=== PATIENT | male | born 1965 | race Caucasian/White ===

== ENCOUNTER 2020-02-25 14:31 | Observation (INO) | payer OTHER ==
--- OUTSIDE RECORDS SUMMARY | 2020-02-25 14:35 | XMS REPORT | Continuity of Care Document ---
:1965 Author Organization [facility] t Address [address] [place] [address] Care Team Providers Name Role Phone UNKNOWN Primary Care Physician Unavailable Mansoor SCHUMACHER M Attending Clinician Fabian LOPEZ Attending Clinician Wero LOPEZ Attending Clinician Henrry LÓPEZ S Attending Clinician Doctor Unassigned, Name Attending Clinician Unavailable Darrius Bobby Attending Clinician Pa LOPEZ Attending Clinician Igor Monte Attending Clinician Nay BOYLE Attending Clinician Unavailable Wero LOPEZ Admitting Clinician Pa LOPEZ Admitting Clinician Nay BOYLE Admitting Clinician Unavailable Payers Payer Name Policy Type Policy Number Effective Date Expiration Date S ource Problems This patient has no known problems. Allergies, Adverse Reactions, Alerts Allergy Allergy Status Severity Reaction(s) Onset Inactive Treating Comm ents Source Name Type Date Date Clinician No Known DA Active [facility] 04-30 00:00: [address] Medications This patient has no known medications. Procedures This patient has no known procedures. Encounters Start End Encounter Admission Attending Care Care Encounter Source Date/Time Date/Time Type Type Clinicians Facility Department ID 2020-01-06 2020-01-06 Transition Braulio Max [id number] 00:00:00 00:00:00 of Care Jaymie Richardson [id number] David [id number] [id number] 2020-01-03 2020-01-05 Hospital Samson Peralta [facility] [id number] 12:56:00 16:50:00 Encounter Emerson Conteh [id number] [place] 4.2.7.2.686 [place] [id number] 2019-12-16 2019-12-[address] [facility] [id number] 15:24:00 17:43:00 Taylor Barahona [id number] [place] 4.2.7.2.686 [place] [id number] 2019-12-16 2019-12-16 Orders Doctor RADHA [id number] 00:00:00 00:00:00 Only Unassigned, REBECA 350.1.13.10 [place] [facility] [id number] [id number] 2019-05-22 2019-05-24 Emergency Shadiakanchan Luzrebekah Darrius [facility] 1.2. [id number] [id number] 15:03:46 10:20:00 Artem Winn [id number] [place] 4.2.7.2.686 [place] [id number] 2018-11-20 2018-11-[address] [facility] [id number] 14:55:10 16:23:02 Visit Eyal Barahona [id number] [place] 4.2.7.2.686 [place] [id number] formerly [facility] [address] Building 2016-04-16 2016-04-16 Outpatient [facility] MED [id number] 10:50:00 10:50:00 [facility] Results Test Description Test Time Test Comments Results Result Comments Source CBC W/AUTO DIFF 2018-12-26 09:16:00 Test Item Value Reference Range Interpretation Comme nts WHITE BLOOD CELL (test code = WBC) 10.7 K/MM3 3.8-9.8 H RED BLOOD CELL (test code = RBC) 5.79 M/MM3 3.95-5.67 H HEMOGLOBIN (test code = HGB) 11.0 G/DL 12.4-16.7 L HEMATOCRIT (test code = HCT) 39.1 % 35.9-49.5 N MEAN CELL VOLUME (test code = MCV) 68 fL 81.7-96.1 L MEAN CELL HGB (test code = MCH) 19.0 pg 27.6-33.2 L MEAN CELL HGB CONCETRATION (test code = MCHC) 28.1 % 32.9-35. 5 L RED CELL DISTRIBUTION WIDTH (test code = RDW) 22.3 % 12.1-15. 2 H PLATELET COUNT (test code = PLT) 473 K/MM3 129-368 H MEAN PLATELET VOLUME (test code = MPV) 9.9 fl 7.4-10.4 N NEUTROPHIL % (test code = NT%) 60.9 % 43-75 N IMMATURE GRANULOCYTE % (test code = IG%) 0.7 % 0.0-2.0 N LYMPHOCYTE % (test code = LY%) 19.7 % 14-44 N MONOCYTE % (test code = MO%) 13.9 % 4-13 H EOSINOPHIL % (test code = EO%) 3.8 % 0-6 N BASOPHIL % (test code = BA%) 1.0 % 0-2 N NUCLEATED RBC % (test code = NRBC%) 0.0 % 0-1.0 N NEUTROPHIL # (test code = NT#) 6.53 K/mm3 2.0-7.6 N IMMATURE GRANULOCYTE # (test code = IG#) 0.07 x10 3/uL 0-0.03 H LYMPHOCYTE # (test code = LY#) 2.11 K/mm3 1.0-3.8 N MONOCYTE # (test code = MO#) 1.49 K/mm3 0.1-0.8 H EOSINOPHIL # (test code = EO#) 0.41 K/mm3 0.0-0.2 H BASOPHIL # (test code = BA#) 0.11 K/mm3 0.0-0.2 N NUCLEATED RBC # (test code = NRBC#) 0.00 K/mm3 0.0-0.1 N DIFFERENTIAL [id number] 09:16:00 Test Item Value Reference Range Interpretation Comments RBC MORPHOLOGY REQUIRED (test code = ABNORMAL RBCM) POIKILOCYTOSIS (test code = POIK) MODERATE NONE ANISOCYTOSIS (test code = ANISO) MANY NONE MICROCYTOSIS (test code = MICR) MODERATE NONE ELLIPTOCYTES (test code = ELL) FEW NONE OVALOCYTES (test code = OVAL) MODERATE NONE PLATELET ESTIMATE (test code = ADEQUATE ADEQUATE PLTEST) PLATELET MORPHOLOGY (test code = NORMAL NORMAL PLTMORPH) GLUCOSE BEDSIDE [id number] 08:39:00 Test Item Value Reference Range Interpretation Comments GLUCOSE BEDSIDE TESTING (test code 195 MG/DL 60-99 H = GLUBED) BASIC METABOLIC [id number] 07:47:00 Test Item Value Reference Range Interpretation Comments SODIUM (test code = 136 MMOL/L 137-145 L NA) POTASSIUM (test code = 4.6 MMOL/L 3.5-5.1 N K) CHLORIDE (test code = 100 MMOL/L 98-107 N CL) CARBON DIOXIDE (test 27 MMOL/L 22-30 N code = CO2) ANION GAP (test code = 14 MMOL/L 14-24 N GAP) GLUCOSE (test code = 259 MG/DL 74-106 H GLU) BLOOD UREA NITROGEN 25 MG/DL 9-20 H (test code = BUN) GLOMERULAR FILTRATION 29 Report ing units: RATE (test code = GFR) ml/mi n/1.73 m2 (Modified MDRD Formula)Referen ce Range: > or = 6 0 ml/min/1.73 m2 CREATININE (test code 2.40 MG/DL 0.66-1.25 H = CREAT) CALCIUM (test code = 9.2 MG/DL 8.4-10.2 N CA) LIPID PROFILE (CORONARY RISK)2018-12-26 07:47:00 Test Item Value Reference Range Interpretation Comments TRIGLYCERIDES (test 191 MG/DL TRIGLYCE RIDES code = TRIG) REFERENCE RANGE:Normal: < 150 mg/dLBorderline High: 150-199 mg/dLHi gh: 200-499 mg/dLVe ry High: >=500 mg/ dL CHOLESTEROL (test code 150 MG/DL <200 = CHOL) HDL CHOLESTEROL (test 48 MG/DL 40-59 N code = HDL) LIPOPROTEIN LDL (test 80 MG/DL 0-99 N code = LDL) OPTIMAL........ .<100 mg/dLNEAR OPTIMAL/ABOVE OPTIMAL........ .100-12 9 mg/dL BORDERLINE HIGH.........13 0-159 mg/dL HIGH.........16 0-189 mg/dL VERY HIGH...... ...>/= 190 mg/dL [id number] 07:47:00 Test Item Value Reference Range Interpretation Comments MAGNESIUM (test code = MAG) 2.0 MG/DL 1.6-2.3 N PROTHROMBIN [id number] 07:41:00 Test Item Value Reference Range Interpretation Comments PROTHROMBIN TIME 10.2 SECONDS 9.6-11.6 N PATIENT (test code = PTP) INTERNATIONAL NORMAL 1.0 0.8-1.1 N The INR is to be RATIO (test code = used only for INR) monitoring oral anticoagulantth erap y. INDICATION I NR VALUE ---- ---- ---- -------1. Prophylaxis, de ep venous thrombos is, including hig h risk surgery. 2.0 - 3.0 2. Prophylaxis, de ep venous thrombos is, hip surgery, treatment for d eep venous thrombosis or pulmonary prevention of systemic emboli sm in patients wit h valvular heart disease, atrial fibrillation, tissue heart va lve, or acute myocar dial infarction. 2.0 - 3 .0 3. Mechanical prosthesis hear t valves, recurrent syste jordana embolism. 3.0 - 4.5 Comments to Blood Typer: WILL BRING TO LABPTT [id number] 07:41:00 Test Item Value Reference Range Interpretation Comments PTT ACTIVATED (test code = APTT) 26.8 SECONDS 22.0-33.0 N Comments to Blood Typer: WILL BRING TO LABBASIC METABOLIC [id number] 07:31:00 Test Item Value Reference Range Interpretation Comments SODIUM (test code = 136 MMOL/L 137-145 L NA) POTASSIUM (test code = 4.6 MMOL/L 3.5-5.1 N K) CHLORIDE (test code = 100 MMOL/L 98-107 N CL) CARBON DIOXIDE (test 27 MMOL/L 22-30 N code = CO2) ANION GAP (test code = 14 MMOL/L 14-24 N GAP) GLUCOSE (test code = 259 MG/DL 74-106 H GLU) BLOOD UREA NITROGEN 25 MG/DL 9-20 H (test code = BUN) GLOMERULAR FILTRATION 29 Report ing units: RATE (test code = GFR) ml/mi n/1.73 m2 (Modified MDRD Formula)Referen ce Range: > or = 6 0 ml/min/1.73 m2 CREATININE (test code 2.40 MG/DL 0.66-1.25 H = CREAT) CALCIUM (test code = 9.2 MG/DL 8.4-10.2 N CA) LIPID PROFILE (CORONARY RISK)2018-12-26 07:31:00 Test Item Value Reference Range Interpretation Comments TRIGLYCERIDES (test 191 MG/DL TRIGLYCE RIDES code = TRIG) REFERENCE RANGE:Normal: < 150 mg/dLBorderline High: 150-199 mg/dLHi gh: 200-499 mg/dLVe ry High: >=500 mg/ dL CHOLESTEROL (test code 150 MG/DL <200 = CHOL) HDL CHOLESTEROL (test 48 MG/DL 40-59 N code = HDL) LIPOPROTEIN LDL (test MG/DL 0-99 code = LDL) [id number] 07:31:00 Test Item Value Reference Range Interpretation Comments MAGNESIUM (test code = MAG) 2.0 MG/DL 1.6-2.3 N BASIC METABOLIC [id number] 07:29:00 Test Item Value Reference Range Interpretation Comments SODIUM (test code = NA) 136 MMOL/L 137-145 L POTASSIUM (test code = K) 4.6 MMOL/L 3.5-5.1 N CHLORIDE (test code = CL) 100 MMOL/L 98-107 N CARBON DIOXIDE (test code = CO2) MMOL/L 22-30 GLUCOSE (test code = GLU) MG/DL 74-106 BLOOD UREA NITROGEN (test code = MG/DL 9-20 BUN) GLOMERULAR FILTRATION RATE (test code = GFR) CREATININE (test code = CREAT) MG/DL 0.66-1.25 CALCIUM (test code = CA) MG/DL 8.7-9.7 LIPID PROFILE (CORONARY RISK)2018-12-26 07:29:00 Test Item Value Reference Range Interpretation Comments TRIGLYCERIDES (test code = TRIG) MG/DL CHOLESTEROL (test code = CHOL) 150 MG/DL <200 HDL CHOLESTEROL (test code = HDL) MG/DL 40-59 LIPOPROTEIN LDL (test code = LDL) MG/DL 0-99 [id number] 07:29:00 Test Item Value Reference Range Interpretation Comments MAGNESIUM (test code = MAG) MG/DL 1.6-2.3 BASIC METABOLIC [id number] 07:27:00 Test Item Value Reference Range Interpretation Comments SODIUM (test code = NA) 136 MMOL/L 137-145 L POTASSIUM (test code = K) 4.6 MMOL/L 3.5-5.1 N CHLORIDE (test code = CL) 100 MMOL/L 98-107 N CARBON DIOXIDE (test code = CO2) MMOL/L 22-30 GLUCOSE (test code = GLU) MG/DL 74-106 BLOOD UREA NITROGEN (test code = MG/DL 9-20 BUN) GLOMERULAR FILTRATION RATE (test code = GFR) CREATININE (test code = CREAT) MG/DL 0.66-1.25 CALCIUM (test code = CA) MG/DL 8.7-9.7 LIPID PROFILE (CORONARY RISK)2018-12-26 07:27:00 Test Item Value Reference Range Interpretation Comments TRIGLYCERIDES (test code = TRIG) MG/DL CHOLESTEROL (test code = CHOL) MG/DL <200 HDL CHOLESTEROL (test code = HDL) MG/DL 40-59 LIPOPROTEIN LDL (test code = LDL) MG/DL 0-99 [id number] 07:27:00 Test Item Value Reference Range Interpretation Comments MAGNESIUM (test code = MAG) MG/DL 1.6-2.3 CBC W/AUTO [id number] 07:24:00 Test Item Value Reference Range Interpretation Comments WHITE BLOOD CELL (test code = 10.7 K/MM3 3.8-9.8 H WBC) RED BLOOD CELL (test code = 5.79 M/MM3 3.95-5.67 H RBC) HEMOGLOBIN (test code = HGB) 11.0 G/DL 12.4-16.7 L HEMATOCRIT (test code = HCT) 39.1 % 35.9-49.5 N MEAN CELL VOLUME (test code = 68 fL 81.7-96.1 L MCV) MEAN CELL HGB (test code = MCH) 19.0 pg 27.6-33.2 L MEAN CELL HGB CONCETRATION 28.1 % 32.9-35.5 L (test code = MCHC) RED CELL DISTRIBUTION WIDTH 22.3 % 12.1-15.2 H (test code = RDW) PLATELET COUNT (test code = 473 K/MM3 129-368 H PLT) MEAN PLATELET VOLUME (test code 9.9 fl 7.4-10.4 N = MPV) NEUTROPHIL % (test code = NT%) 60.9 % 43-75 N IMMATURE GRANULOCYTE % (test 0.7 % 0.0-2.0 N code = IG%) LYMPHOCYTE % (test code = LY%) 19.7 % 14-44 N MONOCYTE % (test code = MO%) 13.9 % 4-13 H EOSINOPHIL % (test code = EO%) 3.8 % 0-6 N BASOPHIL % (test code = BA%) 1.0 % 0-2 N NUCLEATED RBC % (test code = 0.0 % 0-1.0 N NRBC%) NEUTROPHIL # (test code = NT#) 6.53 K/mm3 2.0-7.6 N IMMATURE GRANULOCYTE # (test 0.07 x10 3/uL 0-0.03 H code = IG#) LYMPHOCYTE # (test code = LY#) 2.11 K/mm3 1.0-3.8 N MONOCYTE # (test code = MO#) 1.49 K/mm3 0.1-0.8 H EOSINOPHIL # (test code = EO#) 0.41 K/mm3 0.0-0.2 H BASOPHIL # (test code = BA#) 0.11 K/mm3 0.0-0.2 N NUCLEATED RBC # (test code = 0.00 K/mm3 0.0-0.1 N NRBC#) DIFFERENTIAL [id number] 07:24:00 Test Item Value Reference Range Interpretation Comments RBC MORPHOLOGY REQUIRED (test code = RBCM) PLATELET ESTIMATE (test code = PLTEST) ADEQUATE PLATELET MORPHOLOGY (test code = NORMAL PLTMORPH) CBC W/AUTO [id number] 07:24:00 Test Item Value Reference Range Interpretation Comments WHITE BLOOD CELL (test code = 10.7 K/MM3 3.8-9.8 H WBC) RED BLOOD CELL (test code = 5.79 M/MM3 3.95-5.67 H RBC) HEMOGLOBIN (test code = HGB) 11.0 G/DL 12.4-16.7 L HEMATOCRIT (test code = HCT) 39.1 % 35.9-49.5 N MEAN CELL VOLUME (test code = 68 fL 81.7-96.1 L MCV) MEAN CELL HGB (test code = MCH) 19.0 pg 27.6-33.2 L MEAN CELL HGB CONCETRATION 28.1 % 32.9-35.5 L (test code = MCHC) RED CELL DISTRIBUTION WIDTH 22.3 % 12.1-15.2 H (test code = RDW) PLATELET COUNT (test code = 473 K/MM3 129-368 H PLT) MEAN PLATELET VOLUME (test code 9.9 fl 7.4-10.4 N = MPV) NEUTROPHIL % (test code = NT%) 60.9 % 43-75 N IMMATURE GRANULOCYTE % (test 0.7 % 0.0-2.0 N code = IG%) LYMPHOCYTE % (test code = LY%) 19.7 % 14-44 N MONOCYTE % (test code = MO%) 13.9 % 4-13 H EOSINOPHIL % (test code = EO%) 3.8 % 0-6 N BASOPHIL % (test code = BA%) 1.0 % 0-2 N NUCLEATED RBC % (test code = 0.0 % 0-1.0 N NRBC%) NEUTROPHIL # (test code = NT#) 6.53 K/mm3 2.0-7.6 N IMMATURE GRANULOCYTE # (test 0.07 x10 3/uL 0-0.03 H code = IG#) LYMPHOCYTE # (test code = LY#) 2.11 K/mm3 1.0-3.8 N MONOCYTE # (test code = MO#) 1.49 K/mm3 0.1-0.8 H EOSINOPHIL # (test code = EO#) 0.41 K/mm3 0.0-0.2 H BASOPHIL # (test code = BA#) 0.11 K/mm3 0.0-0.2 N NUCLEATED RBC # (test code = 0.00 K/mm3 0.0-0.1 N NRBC#) DIFFERENTIAL [id number] 07:24:00 Test Item Value Reference Range Interpretation Comments RBC MORPHOLOGY REQUIRED (test code = RBCM) PLATELET ESTIMATE (test code = PLTEST) ADEQUATE PLATELET MORPHOLOGY (test code = NORMAL PLTMORPH) POC Glucose, [id number] 13:51:00 Test Item Value Reference Range Interpretation Comments POC Glucose (test 186 mg/dL 70-115 H If you con sales utility representative your code = POCGLUC) patient crit ically ill, the Sam Accu- Chek InformII meters hould not be used for Glu cose determinations. Draw a venous Glucose and send to the Main Lab for Analysis.
--- OUTSIDE RECORDS SUMMARY | 2020-02-25 14:35 | XMS REPORT | Summary of Care ---
:1965 Author Organization [facility] - [facility] Address [address] [place] [id number] Care Team Providers Name Role Phone Brandt Primary Care Provider Encounter Details Date Type Department Care Team Description 12/16/2019 Orders Only [facility] Doctor Unassigned, [address] [facility] [place] [address] [address] [place] [address] Allergies Active Allergy Reactions Severity Noted Date Comments Morphine Other - See comments 05/06/2019 "I've b een told it makes me violent" documented as of this encounter (statuses as of 12/16/2019) Medications Medication Sig Dispensed Refills Start Date End Date Status rosuvastatin (CRESTOR) Take 20 mg by 0 Active 20 mg tablet mouth at bedtime. clopidogrel (PLAVIX) 75 Take 75 mg by 0 Active mg tablet mouth daily. Insulin [place], Use as directed, 360 Each 1 08/09/2016 Active Disposable, (OLIVER PEN QID, Dx;E11.9 NEEDLE) 32 gauge x 5/32" NdleIndications: Type 1 diabetes mellitus with complication albuterol 90 Inhale 2 Puffs 8.5 g 0 10/05/2017 A ctive mcg/actuation inhaler every 4 (four) hours as needed for Wheezing or Shortness of Breath. ondansetron 4 mg Take 1 tablet by 20 tablet 0 04/01/2018 Active disintegrating tablet mouth every 8 (eight) hours as needed for Nausea and Vomiting (N/V). buPROPion SR 150 mg SR TAKE 1 TABLET BY 5 10/17/2018 Active tablet MOUTH ONCE DAILY HUMALOG U-100 INSULIN USE DIRECTED 5 09/25/2018 Active 100 unit/mL solution PER SLIDING SCALE; MAX DAILY DOSE 60 UNITS metoclopramide HCl 10 Take 1 tablet by 20 tablet 0 05/07/2019 Active mg tabletIndications: mouth 2 (two) Syncope, unspecified times daily as syncope type, needed for Nausea Hypokalemia, Vomiting, and Vomiting intractability of (N/V). vomiting not specified, presence of nausea not specified, unspecified vomiting type, Essential hypertension Insulin Detemir inject 30 Units 3 mL 2 05/24/2019 Active (LEVEMIR FLEXTOUCH under the skin 2 U-100 INSULN) 100 (two) times unit/mL (3 mL) daily. injectionIndications: Type 1 diabetes mellitus with complication documented as of this encounter (statuses as of 12/16/2019) Active Problems Problem Noted Date Nausea & vomiting 05/23/2019 Chest pain 05/22/2019 Syncope and collapse 05/06/2019 Coronary artery disease involving [place] coronary anna ry of [place] heart 05/06/2019 without angina pectoris Essential hypertension 05/06/2019 Myocardial infarction type 2 05/06/2019 Stage 4 chronic kidney disease 05/06/2019 Volume overload 02/17/2017 Type 1 diabetes mellitus with complication 07/30/2016 Dyslipidemia 07/30/2016 Obesity (BMI 30-39.9) 04/15/2016 documented as of this encounter (statuses as of 12/16/2019) Social History Tobacco Use Types Packs/Day Years Used Date Never Smoker Smokeless Tobacco: Never Used Alcohol Use Drinks/Week oz/Week Comments Yes twice weekly Sex Assigned at Date Recorded Not on file documented as of this encounter Last Filed Vital Signs Not on filedocumented in this encounter Plan of Treatment Health Maintenance Due Date Last Done Comments EYE EXAM 1976 Depression Screening 1978 DTaP,Tdap,and Td Vaccines (1 1985 - Tdap) COLON CANCER SCREENING 2016 ANNUAL FIT/FOBT COLON CANCER SCREENING FIT 2016 DNA EVERY 3 YEARS COLON CANCER SCREENING 2016 SIGMOIDOSCOPY EVERY 5 YEARS COLONOSCOPY 2016 Colorectal Cancer Screening 2016 Zoster Recombinant Vaccine 2016 (SHINGRIX) (1 of 2) HgA1C 11/04/2019 05/06/2019, 11/20/2018, 04/01/2018, Additional history exists FOOT EXAM 11/21/2019 11/20/2018, 11/20/2018, 11/12/2016, Additional history exists LDL-C 11/21/2019 11/20/2018, 11/12/2016 URINE MICROALBUMIN 11/21/2019 11/20/2018, 11/12/2016 INFLUENZA VACCINE (#1) 2019 CREATININE (SERUM) 05/24/2020 05/24/2019, 05/22/2019, 05/07/2019, Additional history exists PNEUMOCOCCAL 0-64 YEARS Aged Out No longe r eligible COMBINED SERIES based on patient 's age to complete this topic documented as of this encounter Procedures Procedure Name Priority Date/Time Associated Diagnosis Comme nts CONSENT/REFUSAL FOR Routine 12/16/2019 3:18 PM CDT DIAGNOSIS AND TREATMENT documented in this encounter Results Not on filedocumented in this encounter Insurance Payer Benefit Plan / Group Subscriber ID Effective Dates Phone Address Type AETNA AETNA O [id number] 2011-Present [place] documented as of this encounter
--- OUTSIDE RECORDS SUMMARY | 2020-02-25 14:36 | XMS REPORT | Summary of Care ---
:1965 Author Organization [facility] Address [address] [place] [address] Care Team Providers Name Role Phone Brandt Primary Care Provider Reason for Visit Reason Comments Vomiting Auth/Cert Status Reason Specialty Diagnoses / Referred By Referred To Procedures Contact Contact Emergency Medicine Diagnoses VOMITING [facility] [address] [place] [address] Fax: Encounter Details Date Type Department Care Team Description 12/16/2019 Emergency ADC-Emergency Taylor Sales, MARIBEL Vomiting, intractability of vomiting not specified, presence of nausea not specified, unspecified vomiting type (Primary Dx); Department [address] [place] [address] DR Cardoso specified diabetes mellitus with o ther specified complication, unspecified whether local intermodal truck driver insulin use [address] [place], [place] [address] [address] [phone] [place], [place] [id number] [phone] Allergies Active Allergy Reactions Severity Noted Date Comments Morphine Other - See comments 05/06/2019 "I've b een told it makes me violent" documented as of this encounter (statuses as of 12/16/2019) Medications Medication Sig Dispensed Refills Start Date End Date Status rosuvastatin Take 20 mg by 0 Act cleo (CRESTOR) 20 mg mouth at tablet bedtime. clopidogrel (PLAVIX) Take 75 mg by 0 Active 75 mg tablet mouth daily. Insulin Seymour, Use as 360 Each 1 08/09/2016 Ac tive Disposable, (OLIVER directed, QID, PEN NEEDLE) 32 gauge Dx;E11.9 x 5/32" NdleIndications: Type 1 diabetes mellitus with complication albuterol 90 Inhale 2 Puffs 8.5 g 0 10/05/2017 A ctive mcg/actuation every 4 (four) inhaler hours as needed for Wheezing or Shortness of Breath. ondansetron 4 mg Take 1 tablet 20 tablet 0 04/01/2018 Active disintegrating by mouth every tablet 8 (eight) hours as needed for Nausea and Vomiting (N/V). buPROPion SR 150 mg TAKE 1 TABLET 5 10/17/2018 Active SR tablet BY MOUTH ONCE DAILY HUMALOG U-100 USE DIRECTED 5 09/25/2018 Active INSULIN 100 unit/mL PER SLIDING solution SCALE; MAX DAILY DOSE 60 UNITS Insulin Detemir inject 30 Units 3 mL 2 05/24/2019 Active (LEVEMIR FLEXTOUCH under the skin U-100 INSULN) 100 2 (two) times unit/mL (3 mL) daily. injectionIndications : Type 1 diabetes mellitus with complication metoclopramide HCl Take 1 tablet 20 tablet 0 12/16/2019 Active 10 mg by mouth every tabletIndications: 6 (six) hours. Vomiting, intractability of vomiting not specified, presence of nausea not specified, unspecified vomiting type, Other specified diabetes mellitus with other specified complication, unspecified whether local intermodal truck driver insulin use metoclopramide HCl Take 1 tablet 20 tablet 0 05/07/2019 Discontinued 10 mg by mouth 2 0 tabletIndications: (two) times Syncope, unspecified daily as needed syncope type, for Nausea and Hypokalemia, Vomiting (N/V). 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 documented as of this encounter Last Filed Vital Signs Vital Sign Reading Time Taken Comments Blood Pressure 178/103 12/16/2019 5:33 PM CDT Pulse 87 12/16/2019 5:33 PM CDT Temperature 37.1 C (98.8 F) 12/16/2019 3:27 PM CDT Respiratory Rate 16 12/16/2019 5:33 PM CDT Oxygen Saturation 99% 12/16/2019 5:33 PM CDT Inhaled Oxygen Concentration - - Weight 83.9 kg (185 lb) 12/16/2019 3:27 PM CDT Height 172.7 cm (5' 8") 12/16/2019 3:27 PM CDT Body Mass Index 28.13 12/16/2019 3:27 PM CDT documented in this encounter Discharge Instructions InstructionsTaylor Sales, PAC - 12/16/2019DIAGNOSIS 1. Vomiting NO LIFE-THREATENING FINDINGS ON TODAY'S EXAM. PROCEDURES IN THE ER TODAY: none MEDICATIONS ADMINISTERED IN THE ER TODAY: Zofran 4mg IV Reglan 10mg IV Benadryl 12.5mg IV IV fluids YOUR PRESCRIPTIONS AND [id number] MEDICATION RECOMMENDATIONS: Reglan 10mg tablets Benadryl 25mg tablets SPECIAL CARE INSTRUCTIONS: Take medicine as needed for nausea as prescribed and Bendaryl as needed if you feel anxious after taking the nausea medicine. Drink plenty of clear liquids. Continue treamtent of DM as recommended by your PCP. Return to the ED if vomiting worsens and you are unable to control with medicine or if you develop new symptoms such as severe abdominal pain or fever. FOLLOW-UP RECOMMENDATIONS: RECOMMEND FOLLOW-UP WITH A PRIMARY CARE PROVIDER OR SPECIALIST IN 2-5 DAYS, ESPECIALLY IF NO IMPROVEMENT IN SYMPTOMS. TO FOLLOW-UP WITHIN THE [facility], TRY THESE OPTIONS (CLINIC APPOINTMENTS AVAILABLE ON COTP-YK-[id number] BASIS): 1. SCHEDULE AN APPOINTMENT ONLINE AT WWW.[facility] 2. OR CALL THE [facility]ESS CENTER AT OR 3. OR CALL YOUR [facility] PHYSICIAN'S OFFICE DIRECTLY IF YOU ARE ALREADY AN ESTABLISHED [facility] PATIENT. OR, YOU MAY FOLLOW-UP WITH A PROVIDER OF YOUR CHOICE, SUCH : 1. A PHYSICIAN OF YOUR CHOICE 2. [facility], . LOCATIONS IN [facility] 3. [facility], [address], [place]; [phone] RETURN TO ER FOR WORSENING OF SYMPTOMS. AttachmentsThe following attachments cannot be sent through Care Everywhere. Vomiting (Adult) (Greenlandic)documented in this encounter ED Notes Angie Worley RN - 12/16/2019 3:25 PM CDTNausea/vomiting x2 days. States he went to [facility] urgent care and they advised him to come to the ED "in case I needed fluids". States he is diabetic and he consistently reads "HI" on his monitors. He has not been taking his HTN meds due to vomiting. BGL:[id number] documented in this encounter Miscellaneous Notes ED Nurse Note - Nadiya Toribio RN - 12/16/2019 5:42 PM CDTPt discharged with diagnosis of vomiting. Printed and verbal instructions reviewed with and given topatient. Prescriptions given x1. Pt verbalized understanding of teaching and medications. Denies questions or concerns at this time. Pt ambulatory at discharge, appears in no apparent distress. No ataxia noted. D Nurse Note - Nadiya Toribio RN - 12/16/2019 5:33 PM CDTERP notified of patient's BP. Advised patient to take daily BP medications on arrival home. D Nurse Note - Nadiya Toribio RN - 12/16/2019 3:46 PM CDTAttempted collection of UA, Pt unable to provide specimen at this time. Will attempt again shortly. Urinal left at bedside. documented in this encounter Plan of Treatment Health [...] Name Priority Date/Time Associated Diagnosis Comme nts POCT GLUCOSE Routine 12/16/2019 4:41 Results for this (AUTOMATED) PM CDT procedure are i n the results section. URINALYSIS STAT 12/16/2019 4:16 Vomiting, Results for this PM CDT intractability of procedure are in vomiting not the results specified, presence of secti on. nausea not specified, unspecified vomiting type Other specified diabetes mellitus with other specified complication, unspecified whether [facility] use COVID-19 (ID NOW STAT 12/16/2019 4:05 Vomiting, Results for this RAPID TESTING) PM CDT intractability of procedur e are in vomiting not the results specified, presence of secti on. nausea not specified, unspecified vomiting type Other specified diabetes mellitus with other specified complication, unspecified whether [facility] insulin use CBC WITH DIFF STAT 12/16/2019 3:41 Vomiting, Results fo r this PM CDT intractability of procedure are in vomiting not the results specified, presence of secti on. nausea not specified, unspecified vomiting type Other specified diabetes mellitus with other specified complication, unspecified whether local intermodal truck driver insulin use COMP. METABOLIC STAT 12/16/2019 3:41 Vomiting, Results for this PANEL (03772) PM CDT intractability of procedure are in vomiting not the results specified, presence of secti on. nausea not specified, unspecified vomiting type Other specified diabetes mellitus with other specified complication, unspecified whether [facility] insulin use LIPASE STAT 12/16/2019 3:41 Vomiting, Results for this PM CDT intractability of procedure are in vomiting not the results specified, presence of secti on. nausea not specified, unspecified vomiting type Other specified diabetes mellitus with other specified complication, unspecified whether [facility] insulin use POCT GLUCOSE Routine 12/16/2019 3:29 Results for this (AUTOMATED) PM CDT procedure are i n the results section. NOTICE OF PRIVACY Routine 12/16/2019 3:18 PRACTICES PM CDT documented in this encounter Results POCT GLUCOSE (AUTOMATED) (12/16/2019 4:41 PM CDT) Pathologist Sig nature POCT GLU 358 (H) 70 - 110 mg/dL [facility] Specimen Blood Performing Organization Address City/State/Zipcode Phone Number [facility] CLIA: [id number] [place], [place] [id number] LABORATORY [address] URINALYSIS (12/16/2019 4:16 PM CDT) Pathologist Sig nature APPEARANCE Clear Clear [facility] COLOR Straw (A) Yellow [facility] PH 6.0 4.8 - 8.0 [facility] SP GRAVITY 1.005 1.003 - 1.030 [facility] GLU U QUAL 500 mg/dL (A) Normal [facility] BLOOD 1+ (A) Negative [facility] KETONES Negative Negative [facility] PROTEIN 100 mg/dL (A) Negative [facility] UROBILIN Normal Normal [facility] BILIRUBIN Negative Negative [facility] NITRITE Negative Negative [facility] LEUK ARNIE Negative Negative [facility] RBC/HPF 2 0 - 3 HPF [facility] WBC/HPF <1 0 - 5 HPF [facility] BACTERIA Few (A) Negative [facility] MUCOUS Slight (A) Negative LPF [facility] SQ EPITH <1 HPF [facility] HYAL CAST 3 (H) <=2 LPF [facility] Specimen Urine - URINE, CLEAN CATCH Performing Organization Address [facility] Phone Number [facility] CLIA: [id number] [place] [address] [address] [facility] [address] COVID-19 (ID NOW RAPID TESTING) (12/16/2019 4:05 PM CDT) SARS-CoV-2 Rapid ID Not Detected Not Detected [facility] Specimen Swab - NASOPHARYNGEAL SWAB Narrative Performed At [facility] NOW COVID-19 Assay is an isothermal nucleic [facility] acid amplification test intended for the qualitative detection of nucleic acid from SARS-CoV-2 viral RNA in nasopharyngeal ([employer]) specimens. It is used under Emergency Use Authorization (EUA) by FDA. The limit of detection (LOD) of the assay is 125 Genome Equivalents/mL. A positive result is indicative of the presence of SARS-CoV-2 RNA. Clinical correlation with patient history and other diagnostic information is necessary to determine patient infection status. A negative (Not Detected) result does not preclude SARS-CoV-2 infection. In patients with clinical symptoms and other tests that are consistent with SARS-CoV-2 infection, negative results should be treated as presumptive negative and a new specimen should be tested with alternative PCR molecular test. Invalid: Please collect a new specimen for repeat patient testing if clinically indicated. Performing Organization Address City/[facility]/Zipcode Phone Number [facility] CLIA: [id number] [place] [address] [place] [address] LIPASE (12/16/2019 3:41 PM CDT) Pathologist Sig nature LIPASE 346 (H) 0 - 220 U/L [facility] Specimen Blood - VENOUS Performing Organization Address [facility]/Zipcode Phone Number [facility] CLIA: [id number] [place] [address] LABORATORY [address] [facility] COMP. METABOLIC PANEL (75816) (12/16/2019 3:41 PM CDT) NA 131 (L) 135 - 145 [facility] mmol/L [facility] K 4.5 3.5 - 5.0 [facility] mmol/L [facility] CL 96 (L) 98 - 108 mmol/L [facility] CO2 TOTAL 23 23 - 31 mmol/L [facility] AGAP 12 2 - 16 [facility] BUN 41 (H) 7 - 23 mg/dL [facility] GLUCOSE 365 (H) 70 - 110 mg/dL [facility] CREATININE 2.54 (H) 0.60 - 1.25 [facility] mg/dL [facility] TOTAL BILI 0.5 0.1 - 1.1 mg/dL [facility] CALCIUM 8.9 8.6 - 10.6 [facility] mg/dL [facility] T PROTEIN 7.2 6.3 - 8.2 g/dL [facility] ALBUMIN 3.8 3.5 - 5.0 g/dL [facility] ALK PHOS 138 (H) 34 - 122 U/L [facility] ALTv 16 5 - 50 U/L [facility] AST(SGOT) 26 13 - 40 U/L [facility] eGFR Calculation 26.7 mL/min/1.73m2 [facility] [place] eGFR Calculation 32.3 mL/min/1.73m2 [facility] ([facility]) [facility] Specimen Blood - VENOUS Narrative Performed At Association of Glomerular Filtration Rate (GFR) [facility] and Staging of Kidney Disease* + + +- + | GFR (mL/min/1.73 m2) | With Kidney Damage | Without Kidney Damage + + +- + | >90 | Stage one | Normal + + +- + | 60-89 | Stage two | Decreased GFR + + +- + | 30-59 | Stage three | Stage three + + +- + | 15-29 | Stage four | Stage four + + +- + | <15 (or dialysis) | Stage five | Stage five + + +- + *Each stage assumes the associated GFR level has been in effect for at least three months. Stages 1 to 5, with or without kidney disease, indicate chronic kidney disease. Notes: Determination of stages one and two (with eGFR >59mL/min/1.73 m2) requires estimation of kidney damage for at least three months as defined by structural or functional abnormalities of the kidney, manifested by either: Pathological abnormalities or Markers of kidney damage (including abnormalities in the composition of the blood or urine or abnormalities in imaging tests). Performing Organization Address City/State/Zipcode Phone Number [facility] CLIA: [id number] [place] [address] CBC WITH DIFF (12/16/2019 3:41 PM CDT) WBC 8.36 4.20 - 10.70 [facility] 10*3/L [facility] RBC 6.26 (H) 4.26 - 5.52 [facility] 10*6/L [facility] HGB 12.3 12.2 - 16.4 [facility] g/dL [facility] HCT 42.2 38.4 - 49.3 % [facility] MCV 67.4 (L) 81.7 - 95.6 [facility] LABORATORY MCH 19.6 (L) 26.1 - 32.7 [facility] pg [facility] MCHC 29.1 (L) 31.2 - 35.0 [facility] g/dL [facility] RDW-SD 42.7 38.5 - 51.6 [facility] LABORATORY RDW-CV 19.3 (H) 12.1 - 15.4 % [facility] PLT 278 150 - 328 [facility] 10*3/L [facility] MPV Comment: Not [facility] LABORATORY IPF % 8.4Comment: Platelet 1.2 - 10.7 % [facility] count measured by HOSPITAL fluorescence method. LABORATORY NRBC/100 WBC 0.0 0.0 - 10.0 [facility] /100 WBCs [facility] NRBC x10^3 <0.01 10*3/L [facility] GRAN MAT (NEUT) % 76.4 % [facility] IMM GRAN % 0.40 % [facility] LYMPH % 11.4 % [facility] MONO % 9.7 % [facility] EOS % 1.4 % [facility] BASO % 0.7 % [facility] GRAN MAT 6.39 1.99 - 6.95 [facility] x10^3(ANC) 10*3/uL HOSPITAL LABORATORY IMM GRAN x10^3 0.03 0.00 - 0.06 [facility] 10*3/uL HOSPITAL LABORATORY LYMPH x10^3 0.95 (L) 1.09 - 3.23 [facility] 10*3/uL HOSPITAL LABORATORY MONO x10^3 0.81 0.36 - 1.02 [facility] 10*3/uL HOSPITAL LABORATORY EOS x10^3 0.12 0.06 - 0.53 [facility] 10*3/uL [facility] BASO x10^3 0.06 0.01 - 0.09 [facility] 103/uL [facility] Specimen Blood - VENOUS Performing Organization Address City/[facility]/Zipcode Phone Number [facility] CLIA: [id number] [place], [place] [id number] LABORATORY [address] POCT GLUCOSE (AUTOMATED) (12/16/2019 3:29 PM CDT) [facility] POCT GLU 354 (H) 70 - 110 mg/dL [facility] Specimen Blood Performing Organization Address City/[facility] Phone Number [facility] CLIA: [id number] [place], [place] [id number] LABORATORY [address] documented in this encounter Visit Diagnoses Diagnosis Vomiting, intractability of vomiting not specified, presence of nausea not specified, unspecified vomiting type - Primary Other specified diabetes mellitus with o ther specified complication, unspecified whether [facility] insulin use documented in this encounter Administered Medications Medication Order MAR Action Action Date Dose Rate Site cloNIDine (CATAPRES) tablet 0.1 Given 12/16/2019 5:19 PM CDT 0. 1 mg mg 0.1 mg, Oral, ONCE, 1 dose, Zee 12/16/19 at 1830, STAT diphenhydrAMINE (BENADRYL) injection 12.5 Given 12/16/2019 4:55 PM CDT 12.5 mg mg 12.5 mg, Slow IV Push, ONCE, 1 dose, Zee 12/16/19 at 1800, STAT famotidine (PEPCID (PF)) injection 20 mg Given 12/16/2019 4:00 PM CDT 20 mg 20 mg, Slow IV Push, ONCE, 1 dose, Zee 12/16/19 at 1700, MARIBEL metoclopramide HCl (REGLAN) injection 10 mg Given 12/16/2019 4:29 PM CDT 10 mg 10 mg, Slow IV Push, ONCE, 1 dose, Zee 12/16/19 at 1730, MARIBEL NaCl 0.9% (NS) bolus infusion New Bag 12/16/2019 3:40 PM CDT 1,000 mL 999 mL/hr 1,000 mL at 999 mL/hr, 1,000 mL, IV Infusion, ONCE, 1 dose, Zee 12/16/19 at 1645, STAT ondansetron (ZOFRAN (PF)) injection 4 mg Given 12/16/2019 3:41 PM CDT 4 mg 4 mg, Slow IV Push, ONCE, 1 dose, Zee 12/16/19 at 1645, MARIBEL documented in this encounter Additional Health Concerns Infection Onset Date Last Indicated Resolved Time COVID-19 Rule Out 12/16/2019 12/16/2019 12/16/2019 4: 48 PM CDT documented as of this encounter [phone] [id number] (Work) documented as of this encounter
--- OUTSIDE RECORDS SUMMARY | 2020-02-25 14:37 | XMS REPORT | Summary of Care ---
:1965 Author Organization [facility] Address [address] [place] [id number] Care Team Providers Name Role Phone Brandt Primary Care Provider Reason for Referral (Routine) Status Reason Specialty Diagnoses / Referred By Referred To Procedures Contact Contact Closed Patient is IM-CARDIOVASCULA Diagnoses NSTEMI (non-ST elevated myocardial infarction) Coronary artery disease involving [place] coronary artery of [place] heart without angina pectoris mEerson Conteh Dabaghi, Established with R DISEASE / Procedures Discharge Follow-Up: Specialty Service IM-CARDIOVASCULAR DISEASE (Dabagsd); 2 Weeks MD Bharath Rizo MD a Specific Cardiology [address] [place] [address] E [facility] Provider [facility] [address] [place], [place] [address] [address] [place], [place] Phone: [phone] Phone: Radiology Services (Routine) Status Reason Specialty Diagnoses / Referred By Referred To Procedures Contact Contact New Request Diagnostic Diagnoses Stage 4 chronic kidney disease Alroumoh, Radiology Procedures US RETROPERITONEAL COMPLETE Marie Tee MD [address] [facility] [place] [address] (Routine) Status Reason Specialty Diagnoses / Procedures Referred By R eferred To Contact Contact New Request Cardiology Diagnoses Vomiting, intractability of vomiting not specified, presence of nausea not specified, unspecified vomiting type Piña, Sendil Procedures ECHO ROUTINE W/DOPPLER COLOR MD Cesilia [address] [place] [address] (MARIBEL) Status Reason Specialty Diagnoses / Referred By Contact Refe rred To Procedures Contact Closed Cardiology Diagnoses NSTEMI (non-ST elevated myocardial infarction) Emerson Conteh MD Procedures ECHO ROUTINE W/DOPPLER COLOR [address] [place] [address] 6 [phone] Phone: MRI/CAT Scan (STAT) Status Reason Specialty Diagnoses / Referred By Referred To Procedures Contact Contact New Request Diagnostic Diagnoses Vomiting, intractability of vomiting not specified, presence of nausea not specified, unspecified vomiting type Alberto Peralta, Radiology Procedures CT ABDOMEN PELVIS WO CONTRAST CT ABDOMEN PELVIS W CONTRAST [address] [place] [address] [place] [address] Reason for Visit Reason Comments Vomiting Auth/Cert Status Reason Specialty Diagnoses / Referred By Referred To Procedures Contact Contact Emergency Medicine [facility] [address] [place] [address] Fax: Encounter Details Date Type Department Care Team Description 01/03/2020 - Hospital ADC Intensive Care Chrissy Peralta MD [address] [place] [address] NSTEMI (non-ST 01/05/2020 Encounter Unit Emerson Conteh MD [address] [place] [address] elevated myocardial [address] [facility] infarction ) [place] [id number] Allergies Active Allergy Reactions Severity Noted Date Comments Morphine Other - See comments 05/06/2019 "I've b een told it makes me violent" documented as of this encounter (statuses as of 01/05/2020) Medications Medication Sig Dispensed Refills Start Date End Date Status Insulin Mary D, Use as 360 Each 1 08/09/2016 Ac tive Disposable, (OLIVER directed, QID, PEN NEEDLE) 32 Dx;E11.9 gauge x 5/32" NdleIndications: Type 1 diabetes [...] BY MOUTH ONCE DAILY HUMALOG U-100 USE 5 09/25/2018 Activ e INSULIN 100 unit/mL DIRECTED PER solution SLIDING SCALE; MAX DAILY DOSE 60 UNITS Insulin Detemir inject 30 3 mL 2 05/24/2019 Act cleo (LEVEMIR FLEXTOUCH Units under U-100 INSULN) 100 the skin 2 unit/mL (3 mL) (two) times injectionIndication daily. s: Type 1 diabetes mellitus with complication metoclopramide HCl Take 1 tablet 20 tablet 0 12/16/2019 Active 10 mg by mouth every tabletIndications: 6 (six) hours. Vomiting, intractability of vomiting not specified, presence of nausea not specified, unspecified vomiting type, Other specified diabetes mellitus with other specified complication, unspecified whether prison insulin use DULoxetine 30 mg Take 30 mg by 0 Active capsule mouth daily. aspirin 81 mg Take 1 tablet 30 tablet 0 01/06/2020 A ctive chewable by mouth tabletIndications: daily. NSTEMI (non-ST elevated myocardial infarction), Coronary artery disease involving [place] mills coronary artery of [place] heart without angina pectoris losartan 100 mg Take 1 tablet 30 tablet 0 01/06/2020 Active tabletIndications: by mouth NSTEMI (non-ST daily. elevated myocardial infarction), Coronary artery disease involving [place] coronary artery of [place] heart without angina pectoris metoprolol tartrate Take 1 tablet 60 tablet 0 01/05/2020 Active 25 mg by mouth 2 tabletIndications: (two) times NSTEMI (non-ST daily. elevated myocardial infarction), Coronary artery disease involving [place] coronary artery of [place] heart without angina pectoris clopidogreL 75 mg Take 1 tablet 30 tablet 0 01/05/2020 Active tabletIndications: by mouth NSTEMI (non-ST daily. elevated myocardial infarction), Coronary artery disease involving [place] coronary artery of [place] heart without angina pectoris rosuvastatin 20 mg Take 1 tablet 30 tablet 0 01/05/2020 Active tabletIndications: by mouth at NSTEMI (non-ST bedtime. elevated myocardial infarction), Coronary artery disease involving [place] coronary artery of [place] heart without angina pectoris rosuvastatin Take 20 mg by 0 01/05/20 Dis continued (CRESTOR) 20 mg mouth at 20 (Reo rder) tablet bedtime. clopidogrel Take 75 mg by 0 01/05/20 Disc ontinued (PLAVIX) 75 mg mouth daily. 20 (R eorder) tablet documented as of this encounter (statuses as of 01/05/2020) Active Problems Problem Noted Date NSTEMI (non-ST elevated myocardial infarction) 020 Nausea & vomiting 05/23/2019 Chest pain 05/22/2019 Syncope and collapse 05/06/2019 Coronary artery disease involving [place] coronary anna ry of bay mills heart 05/06/2019 without angina pectoris Essential hypertension 05/06/2019 Myocardial infarction type 2 05/06/2019 Stage 4 chronic kidney disease 05/06/2019 Volume overload 02/17/2017 Type 1 diabetes mellitus with complication 07/30/2016 Dyslipidemia 07/30/2016 Obesity (BMI 30-39.9) 04/15/2016 documented as of this encounter (statuses as of 01/05/2020) Immunizations Name Administration Dates Next Due Influenza Virus Vaccine Quad .5 mL IM 6+ MO 01/05/2020 Pneumococcal Polysaccharide, PPSV23 (PNEUMOVAX) 01/05/2020 documented as of this encounter Social History Tobacco Use Types Packs/Day Years Used Date Never Smoker Smokeless Tobacco: Never Used Alcohol Use Drinks/Week oz/Week Comments Yes twice weekly Sex Assigned at Date Recorded Not on file COVID-19 Exposure Response Date Recorded In the last month, have you been in contact with No / Unsure 01/03/2020 1:01 PM CDT someone who was confirmed or suspected to have Coronavirus / COVID-19? documented as of this encounter Last Filed Vital Signs Vital Sign Reading Time Taken Comments Blood Pressure 154/88 01/05/2020 3:38 PM CDT Pulse 90 01/05/2020 3:38 PM CDT Temperature 36.3 C (97.4 F) 01/05/2020 3:38 PM CDT Respiratory Rate 18 01/05/2020 3:38 PM CDT Oxygen Saturation 96% 01/05/2020 12:00 PM CDT Inhaled Oxygen Concentration - - Weight 80 kg (176 lb 4.8 oz) 01/04/2020 5:00 AM CDT Height - - Body Mass Index 26.81 12/16/2019 3:27 PM CDT documented in this encounter Discharge Instructions AppointmentsMeTiff moreno LMSW - 01/05/2020 1:09 PM CDTTuesday January 11, 2020 4:15 PM Hospital Follow- Up Visit with Dr. Bharath Roper [address] [place] [address] Inpyyioijuzhlv signed by Tiff Belcher LMSW at 01/05/2020 1:09 PM CDT Additional InstructionsCorlMounika RN - 01/05/2020 Patient Discharge Instructions Discharge date: 01/05/2020 Procedure(s): Discharge Orders ARB Previously Ordered Order Comments: ARB Previously Ordered Aspirin Previously Ordered P2Y12 Inhibitor Previously Ordered Cardiac (2 gm Sodium, Low Fat, Low Cholesterol) Diet; Texture: Regular. Texture Regular. Diabetic: IDDM Discharge Condition - Discharge Condition: GOOD Discharge Activity Discharge Activity: As Tolerated Discharge Follow-Up: Specialty Service IM-CARDIOVASCULAR DISEASE [facility] 2 Weeks Specialty: IM-CARDIOVASCULAR DISEASE [4] [place] Patient's Preferred Location: [place] Discharge Disposition: HOME, (AHR) When (Patients with risk for unplanned readmission score over 16 or those noted as Hospital Dependent should follow up within 7 days with PCP or primary DX specialist): 2 Weeks Risk of Unplanned Readmission:( Score greater than 16 indicates high risk) 19 Beta mac previously ordered Statins previously ordered VTE Propylaxis- Was ordered during hospitalization Follow instructions as indicated below: 1. The medication that was used will be acting in your system for the next 24 hours, so you might feel a little drowsy, with impaired judgment and or motor function. This feeling should go wear off. Because the medication is still in your system for the next 24 hours you SHOULD NOT: Drive a car, operate machinery or power tool. Drink any alcohol beverages (including beer or wine). Make any important decisions or sign any legal documents. 2. You should rest the remainder of the day and not engage in any physical activity. Move slowly today. After lying down, sit on the edge of the bed for a moment before standing. YOU ARE RESPONSIBLEFOR HAVING SOMEONE AT HOME WITH YOU DURING THE AFTERNOON AND NIGHT IMMEDIATELY FOLLOWING YOUR SURGERY. Patient should cough and deep breathe every 2-4 hours while awake to avoid respiratory complications. 4. Lifting: {IP DISCHARGE INSTRUCTIONS LIFTIN::"No medical restrictions"} 5. Weight: In general, sudden weight gains or losses should be reported to your provider. Cardiac patients should weigh daily and notify their provider for a weight gain of 3 pounds per day or 5 pounds per week. 6. Tobacco Avoidance: Follow recommendations below 7. Because the medications used could procedure some residual nausea and vomiting after you go home,you should eat lightly today, starting with clear liquids (broth, soft drinks, apple juice, jello) and toast or crackers, progressing to bland solid foods and then to your normal diet as tolerated, unle ss otherwise stated by your surgeon. If you get sick, wait a couple of hours and then begin to eat. After 24 hours the nausea should be gone. 8. You may experience some pain and your physician will advise you on what to take for discomfort. This should be taken as directed. If the pain is not relieved, contact your physician. You may alsohave a sore throat from the airway that was in place. You may uses lozenges, throat spray (such as C hloraseptic), or warm salt water gargles for symptomatic relief. 9. If you feel warm, take your temperature. If it is 101 degrees or above call your physician. 10. If you are unable to urinate within five hours after your procedure, call your physician. 11. The type of surgery performed will determine how much bleeding (if any) to expect. Normally, some spotting might occur. If your dressing pad becomes saturated, notify your physician. Elevate surgical site, if applicable, to reduced swelling and pain. 12. Wound/dressing care: Tips on preventing a surgical site infection.. Dont smoke. It is best to quit at least 30 days before surgery, but quitting after surgery is also helpful. If you are diabetic, keep your blood sugar well controlled. WASH YOUR HANDS. Keep your wound clean and remember to wash your hands before and after contact with the area. All health care workers should also wash their hands or use an alcohol based hand rub prior to examining you. If antibiotics are prescribed, take them as directed. Finish the entire course of antibiotics. Call your doctor if you have signs of infection: ? Increased tenderness at the surgical site ? Red streaks or increased redness of the area ? Bad-smelling discharge from the incision ? Fever of 101F or higher ? General tired feeling that doesnt improve 13. Other discharge instructions: {DC IP DISCHARGE INSTRUCTIONS OTHER:45495} 14. Special Instructions: Take Home Medications These are medications ordered for you by your healthcare provider. Do not take any other medications or supplements unless advised by your healthcare provider. Current Discharge Medication List START taking these medications Details aspirin 81 mg chewable tablet Take 1 tablet by mouth daily. Qty: 30 tablet, Refills: 0 Associated Diagnoses: NSTEMI (non-ST elevated myocardial infarction); Coronary artery disease involving [place] mills coronary artery of [place] mills heart without angina pectoris losartan 100 mg tablet Take 1 tablet by mouth daily. Qty: 30 tablet, Refills: 0 Associated Diagnoses: NSTEMI (non-ST elevated myocardial infarction); Coronary artery disease involving [place] coronary artery of [place] heart without angina pectoris metoprolol tartrate 25 mg tablet Take 1 tablet by mouth 2 (two) times daily. Qty: 60 tablet, Refills: 0 Associated Diagnoses: NSTEMI (non-ST elevated myocardial infarction); Coronary artery disease involving [place] coronary artery of [place] heart without angina pectoris CONTINUE these medications which have CHANGED Details clopidogreL 75 mg tablet Take 1 tablet by mouth daily. Qty: 30 tablet, Refills: 0 Associated Diagnoses: NSTEMI (non-ST elevated myocardial infarction); Coronary artery disease involving [place] coronary artery of [place] heart without angina pectoris rosuvastatin 20 mg tablet Take 1 tablet by mouth at bedtime. Qty: 30 tablet, Refills: 0 Associated Diagnoses: NSTEMI (non-ST elevated myocardial infarction); Coronary artery disease involving [place] coronary artery of [place] heart without angina pectoris CONTINUE these medications which have NOT CHANGED Details DULoxetine 30 mg capsule Take 30 mg by mouth daily. metoclopramide HCl 10 mg tablet Take 1 tablet by mouth every 6 (six) hours. Qty: 20 tablet, Refills: 0 Associated Diagnoses: Vomiting, intractability of vomiting not specified, presence of nausea not specified, unspecified vomiting type; Other specified diabetes mellitus with other specified complication, unspecified whether prison insulin use Insulin Detemir (LEVEMIR FLEXTOUCH U-100 INSULN) 100 unit/mL (3 mL) injection inject 30 Units under the skin 2 (two) times daily. Qty: 3 mL, Refills: 2 Associated Diagnoses: Type 1 diabetes mellitus with complication buPROPion SR 150 mg SR tablet TAKE 1 TABLET BY MOUTH ONCE DAILY Refills: 5 HUMALOG U-100 INSULIN 100 unit/mL solution USE DIRECTED PER SLIDING SCALE; MAX DAILY DOSE 60 UNITS Refills: 5 ondansetron 4 mg disintegrating tablet Take 1 tablet by mouth every 8 (eight) hours as needed for Nausea and Vomiting (N/V). Qty: 20 tablet, Refills: 0 albuterol 90 mcg/actuation inhaler Inhale 2 Puffs every 4 (four) hours as needed for Wheezing or Shortness of Breath. Qty: 8.5 g, Refills: 0 Insulin Mary D, Disposable, (OLIVER PEN NEEDLE) 32 gauge x 5/32" Ndle Use as directed, QID, Dx;E11.9 Qty: 360 Each, Refills: 1 Associated Diagnoses: Type 1 diabetes mellitus with complication Follow-up appointments: Your follow up appointment with your surgeon has been made. Appointment Date: , Appointment Time . For questions regarding follow-up instructions call the [facility] Hotline at or If you experience any of the following symptoms , please follow up with . For worsening symptoms/changing condition/problems or questions: Non-emergency/urgent: Call the [facility] Hotline at or or Emergency: Go to the closest emergency room or call [phone] Translated by Date Time If you receive the patient satisfaction survey by mail please complete and return and let us know how we are doing. TOBACCO AVOIDANCE Exposure to tobacco either from smoking or from second hand (environmental) smoke or smokeless tobacco (snuff) is damaging to your health. This information is to encourage everyone to avoid tobacco exposure. It is recommended that you: ? If you smoke or use smokeless tobacco, we encourage you to quit. ? If you have already quit smoking, continue your good work! ? If you do not smoke or use smokeless tobacco, do not start. ? Avoid secondhand smoke. Additional Resources You may want to contact these organizations for further information on smoking and how to quit. [place] [employer], http://www.lungusa.org/stop-smoking/ [place] [employer], http://www.cancer.org/Healthy/StayAwayfromTobacco/index [place] [employer], http://www.heart.org/HEARTORG/GettingHealthy/QuitSmoking/Quit-Smoking_[facility] _001085_SubHomePage.jsp AttachmentsThe following attachments cannot be sent through Care Everywhere. Men Ages 40 to 49, Prevention Guidelines (Eritrean)4 Steps for Eating Healthier (Eritrean)Heart Attack, Discharge Instructions for (Eritrean)Heart Attack, Symptoms of a (Eritrean)Aspirin, ASA oral tablets (Eritrean)Losartan tablets (Eritrean)Metoprolol tablets (Eritrean)documented in this encounter Progress Notes Emerson Conteh MD - 01/05/2020 4:35 PM CDT Milton Morris was hospitalized from 01/03/2020 to 01/05/2020 and can return on Friday01/12/2020 without restriction. Please excuse his absence for this period. Emerson Conteh MD Hospitalist [address] [place], [place] [address] Tiff Luis LMSW - 01/05/2020 1:09 PM CDTSumannalisay: Inpatient Scheduling SOCIAL STUDIES DEPARTMENT CHAIR spoke with patient prior to discharge to assist with scheduling hospital follow up appointments. Pt was agreeable to assistance. DEYA contacted Dr. Roper's clinic directly and clinic reports patient has a preexisting appointment scheduled for at 4:[address] Roper. DEYA inquired if patient would like assistance in scheduling a hospital follow up with Dr. Brandt and patient declined stating he really only needs to follow up with cardiology at this time. Will document referrals once they are made available. Tiff Belcher LMSW Ergonomics Consultant - Community [facility] [address] - 7th floor Office: [phone] (Not for patient use) [email or web address] Javi Mckeon MD - 01/05/2020 10:58 AM CDT [facility] Cardiology progress note Date of Service: 01/05/2020 Milton Morris is a 54 years old male hospitalized for NSTEMI. No chest pain. No cardiac eventsovernight. PHYSICAL EXAM Vitals: 01/05/20 0530 01/05/20 0539 01/05/20 0746 01/05/20 0755 BP: (!) 182/92 (!) 190/101 Pulse: 93 92 Resp: 18 18 Temp: 36.9 C (98.4 F) 37 C (98.6 F) TempSrc: Oral Temporal Artery SpO2: 97% 95% 97% 98% Weight: Date 01/05/20 0700 - 01/06/20 0659 Shift 4834-7594 4264-9494 6715-8046 24 Hour Total INTAKE Shift Total OUTPUT Urine(mL/kg/hr) 550 550 Shift Total 550 550 Weight (kg) 80 80 80 80 General: alert and oriented x 3 (person, place and date/time); no apparent distress HEENT: normocephalic atraumatic Neck: supple, no lymphadenopathy, no bruits, no JVD Lungs: clear to auscultation bilaterally Cardio: S1, S2, normal rate, regular; no murmurs, rubs or gallops Abdomen: non-distended : not examined Rectal: not examined Extremities: no clubbing, cyanosis, or edema Skin: no rashes Neuro: no focal deficits Medications: I have reviewed the patient's medications; see Medication Reconciliation. Labs: I have reviewed the patient's labs. ASSESSMENT AND PLAN Principal Problem: NSTEMI (non-ST elevated myocardial infarction) Active Problems: Obesity (BMI 30-39.9) Type 1 diabetes mellitus with complication Dyslipidemia Coronary artery disease involving [place] coronary artery of [place] heart without angina pectoris Essential hypertension Stage 4 chronic kidney disease Elevated trop: Possible Type 2 PA in the setting of CKD Vs Type 1 PA. Continue IV heparin drip for atotal of 48 hours. Continue on Plavix + ASA 81 mg daily. Continue metoprolol 25 mg BID. No new ECG changes. No typical chest pain history elicited. Second trop is stable. Trending down. ECHO showed preserved LVEF without RWMA. Tele monitoring. Per Dr Roper. He had cath 12/2018 which showed patent stents. CAD s/p PCI: Continue on Plavix + ASA 81 mg daily. Continue Tele monitoring. Cath 12/2018: patent stents with no sig obs CAD. HTN: Elevated. To increase metoprolol and losartan. If needed, consider to add back Norvasc 5 mg daily, Imdur 30 mg daily. Home BP log recommended. Cross check his BP machine. Appropriate ways to checkhome BP discussed. Goals BP < 130/80 stressed. Explained if BP > 130/80, adviced to send us the log. Lifestyle modifications stressed. Dyslipidemia: Recommended to keep LDL < 70. Lifestyle modifications stressed. Currently on Crestor 20 mg daily. LDL CHOL (mg/dL) Date Value 11/20/2018 46 CKD4: as per primary team/neprhorlogy team. Cr is improving. T1DM: as per primary team. Javi Sequeira MD, FAC, JORDIN Case Supervisor, Division of Cardiology [facility] Marie Leach MD - 01/05/2020 10:34 AM CDT Medicine Progress Note Date of Service: 01/05/2020 Chief Complaint: Patient feeling better chest pain-free 24-HOUR EVENTS: 52 year old /White male who presents with complaints of vomiting. Patient denies any chest pain, SOB, palpitations, abdominal pain or diaphoresis. Found to have elevated troponins and was asked to be admitted Chronic kidney disease of stage IIIB/4 normal size kidney 12.1/11.7 nephrotic range of proteinuria secondary to diabetes nephropathy hypertension nephrosclerosis normal volume hospitalized for NSTEMI. SUBJECTIVE: Patient chest pain free CURRENT MEDICATIONS - reviewed. PHYSICAL EXAM: Patient Vitals for the past 24 hrs: BP Temp Temp src Pulse Resp SpO2 01/05/20 0755 37 C (98.6 F) TEMPORAL ART 98 % 01/05/20 0746 18 97 % 01/05/20 0539 (!) 190/101 92 95 % 01/05/20 0530 (!) 182/92 36.9 C (98.4 F) Oral 93 18 97 % 01/05/20 0130 36.8 C (98.2 F) Oral 01/05/20 0000 87 28 95 % 01/04/20 2230 76 17 92 % 01/04/20 2200 78 15 95 % 01/04/20 2131 18 01/04/20 2000 (!) 170/94 36.8 C (98.3 F) Oral 91 22 01/04/20 1932 83 18 98 % 01/04/20 1600 (!) 147/86 36.9 C (98.4 F) 84 20 99 % 01/04/20 1200 (!) 150/89 36.7 C (98 F) 86 26 98 % Intake/Output Summary (Last 24 hours) at 01/05/2020 1034 Last data filed at 01/05/2020 0755 Gross per 24 hour Intake 1344 ml Output 2050 ml Net -706 ml General: alert and oriented x 3; no apparent distress HEENT: pupils equal, round, reactive to light; extraocular movements intact; oropharynx clear; moistmucous membranes, normocephalic atraumatic Neck: supple, no lymphadenopathy, no bruits, no JVD, full range of motion Lungs: clear to auscultation bilaterally Cardio: S1, S2 normal; no murmurs, rubs or gallops, regular rate and rhythm Abdomen: soft; non-tender; non-distended; normoactive bowel sounds Extremities: no clubbing, cyanosis, or edema Skin: no rashes Neuro: cranial nerves II through XII grossly intact; sensation grossly intact; muscle strength 5 outof 5 in all four extremities LABS/IMAGING - reviewed, pertinent results as below: CBC BMP PT/INR WBC (10*3/L) Date Value 01/05/2020 8.87 NA (mmol/L) Date Value 01/05/2020 134 (L) No results found for: PT RBC (10*6/L) Date Value 01/05/2020 4.64 K (mmol/L) Date Value 01/05/2020 3.5 INR (no units) Date Value 01/03/2020 1.1 PLT (10*3/L) Date Value 01/05/2020 235 CALCIUM (mg/dL) Date Value 01/05/2020 8.2 (L) HGB (g/dL) Date Value 01/05/2020 9.5 (L) CL (mmol/L) Date Value 01/05/2020 101 aPTT HCT (%) Date Value 01/05/2020 32.3 (L) BUN (mg/dL) Date Value 01/05/2020 16 APTT Patient (Seconds) Date Value 01/05/2020 43 (H) CREATININE (mg/dL) Date Value 01/05/2020 2.26 (H) Radiology Ct Abdomen Pelvis Wo Contrast Result Date: 01/03/2020 Impression: Trace free pelvic fluid. This is nonspecific in a male patient and could reflect inflammation. Severe diverticulosis without diverticulitis. Borderline enlargement of the spleen measuring 13 cm in length. Multilevel spinal degenerative disc disease and spondylosis. Of note, there is a large left paracentral and subarticular disc protrusion at L4/5. RL: 6200 SSMENT/PLAN Milton Morris is a 54 year old male with PMH as listed above, admitted to the hospital with: Chronic kidney disease of stage IIIB/4 normal size kidney 12.1/11.7 nephrotic range of proteinuria secondary to diabetes nephropathy hypertension nephrosclerosis normal volume Increase losartan Patient clear from renal stand point For DC planning Secondary hyperparathyroidism Calcium phosphorous and PTH on the goal Nephrotic range of proteinuria mostly secondary to diabetes: Increase losartan Hypertension not controlled Increase losartan Coranary artery disease normal ejection fraction, hospitalized for NSTEMI. Javi Mckeon MD - 01/04/2020 10:42 PM CDT [facility] Cardiology progress note Date of Service: 01/04/2020 Milton Morris is a 54 years old male hospitalized for NSTEMI. No chest pain. No cardiac eventsovernight. PHYSICAL EXAM Vitals: 01/04/20 1030 01/04/20 1200 01/04/20 1600 01/04/20 1932 BP: 134/78 (!) 150/89 (!) 147/86 Pulse: 82 86 84 83 Resp: 24 26 20 18 Temp: 36.7 C (98 F) 36.9 C (98.4 F) TempSrc: SpO2: 98% 98% 99% 98% Weight: Date 01/04/20 0700 - 01/05/20 0659 Shift 5142-1095 0924-7130 8639-6684 24 Hour Total INTAKE Oral 236 118 354 I.V. 121 121 Shift Total 236 239 475 OUTPUT Urine(mL/kg/hr) 150(0.2) 300 450 Shift Total 150 300 450 Weight (kg) 80 80 80 80 General: alert and oriented x 3 (person, place and date/time); no apparent distress HEENT: normocephalic atraumatic Neck: supple, no lymphadenopathy, no bruits, no JVD Lungs: clear to auscultation bilaterally Cardio: S1, S2, normal rate, regular; no murmurs, rubs or gallops Abdomen: non-distended : not examined Rectal: not examined Extremities: no clubbing, cyanosis, or edema Skin: no rashes Neuro: no focal deficits Medications: I have reviewed the patient's medications; see Medication Reconciliation. Labs: I have reviewed the patient's labs. ASSESSMENT AND PLAN Principal Problem: NSTEMI (non-ST elevated myocardial infarction) Active Problems: Obesity (BMI 30-39.9) Type 1 diabetes mellitus with complication Dyslipidemia Coronary artery disease involving [place] coronary artery of [place] heart without angina pectoris Essential hypertension Stage 4 chronic kidney disease Elevated trop: Possible Type 2 PA in the setting of CKD Vs Type 1 PA. Continue IV heparin drip. Continue on Plavix + ASA 81 mg daily. Continue metoprolol 25 mg BID. No new ECG changes. No typical chestpain history elicited. Second trop is stable. Trending down. ECHO showed preserved LVEF without RWMA. Tele monitoring. Per Dr Roper. He had cath 12/2018 which showed patent stents. CAD s/p PCI: Continue on Plavix + ASA 81 mg daily. Continue Tele monitoring. Cath 12/2018: patent stents with no sig obs CAD. HTN: Elevated. Recommend restarting his prior dose of Norvasc 5 mg daily, Imdur 30 mg daily. Home BP log recommended. Cross check his BP machine. Appropriate ways to check home BP discussed. Goals BP < 130/80 stressed. Explained if BP > 130/80, adviced to send us the log. Lifestyle modifications stressed. Dyslipidemia: Recommended to keep LDL < 70. Lifestyle modifications stressed. Currently on Crestor 20 mg daily. LDL CHOL (mg/dL) Date Value 11/20/2018 46 CKD4: as per primary team/neprhorlogy team. Cr is improving. T1DM: as per primary team. Javi Sequeira MD, FACC, JORDIN Case Supervisor, Division of Cardiology [facility] Emerson Puente MD - 01/04/2020 11:00 AM CDT [facility] Hospitalist Progress Note SUBJECTIVE: Feels much better today. CURRENT MEDICATIONS - reviewed. Current Facility-Administered Medications Medication Dose Route Frequency Last Rate Last Dose aspirin chewable tablet 81 mg 81 mg Oral DAILY 81 mg at 01/04/20 0800 dextrose 50 % in water (D50W) injection 25 mL 25 mL Slow IV Push PRN glucagon (GLUCAGEN DIAGNOSTIC KIT) injection 1 mg 1 mg Intramuscular PRN [START ON 01/05/2020] losartan (COZAAR) tablet 25 mg 25 mg Oral DAILY metoprolol tartrate (LOPRESSOR) tablet 25 mg 25 mg Oral BID Sliding Scale Insulin-Regular + Fsbg Testing Subcutaneous AC+HS Stopped at 01/04/20 0730 albuterol (VENTOLIN) inhaler 2 Puff 2 Puff Inhalation Q4HPRN clopidogreL (PLAVIX) tablet 75 mg 75 mg Oral DAILY 75 mg at 01/04/20 0800 heparin (1,000 unit/mL, 10 mL vial) for Rebolusing 3,000 Units Slow IV Push FOR REBOLUSING 3,000 Units at 01/04/20 0728 heparin 25,000 Units/250 mL (Premixed Bag) in 0.45 % NS 1,000 Units/hr IV Infusion TITRATE 12 mL/hr at 01/04/20 0728 1,200 Units/hr at 01/04/20 0728 hydralAZINE (APRESOLINE) injection 10 mg 10 mg Slow IV Push Q6HPRN 10 mg at 01/04/20 0637 insulin detemir U-100 (LEVEMIR U-100 INSULIN) injection 30 Units 30 Units Subcutaneous BID 30Units at 01/04/20 0800 metoclopramide HCl (REGLAN) tablet 10 mg 10 mg Oral Q6H 10 mg at 01/04/20 0518 rosuvastatin (CRESTOR) tablet 20 mg 20 mg Oral QHS PHYSICAL EXAM: BP 134/78 | Pulse 82 | Temp 37 C (98.6 F) (Tympanic) | Resp 24 | Wt 176 lb 4.8 oz (80 kg) |SpO2 98% | BMI 26.81 kg/m General: No respiratory distress HEENT: Anicteric sclerae, NCAT Lungs: Symmetric expansion Cardio: RRR Musculoskeletal: Normal muscle mass, no synovitis Skin: No rash or lesions Neuro: AAOx3, no focal deficits Psych: Normal affect LABS/IMAGING - reviewed, pertinent results as below: CBC BMP PT/INR WBC (10*3/L) Date Value 01/04/2020 11.03 (H) NA (mmol/L) Date Value 01/04/2020 133 (L) No results found for: PT RBC (10*6/L) Date Value 01/04/2020 4.97 K (mmol/L) Date Value 01/04/2020 3.7 INR (no units) Date Value 01/03/2020 1.1 PLT (10*3/L) Date Value 01/04/2020 223 CALCIUM (mg/dL) Date Value 01/04/2020 8.3 (L) HGB (g/dL) Date Value 01/04/2020 10.3 (L) CL (mmol/L) Date Value 01/04/2020 99 aPTT HCT (%) Date Value 01/04/2020 33.7 (L) BUN (mg/dL) Date Value 01/04/2020 18 APTT Patient (Seconds) Date Value 01/04/2020 36 CREATININE (mg/dL) Date Value 01/04/2020 2.27 (H) IMAGING- Hospital Encounter on 01/03/20 CT ABDOMEN PELVIS WO CONTRAST Narrative History: Nausea, vomiting . Exam: CT ABDOMEN PELVIS WO CONTRAST Date: 01/03/2020 3:00 PM Ordering provider: ALBERTO PERALTA Technique: Axial CT scanning of the abdomen and pelvis is performed without contrast. Radiation dose reduction performed using ALARA principles. Comparison: None available. Findings: The spleen is borderline enlarged measuring 13 cm in length. Liver, pancreas, gallbladder, adrenal glands, and kidneys are unremarkable on this noncontrast exam. No evidence of biliary ductal dilatation, renal stone, or hydronephrosis. There is a thin urachal remnant. No evidence of abdominal aortic aneurysm. There is trace free pelvic fluid, which is nonspecific. There is severe diverticulosis in the sigmoid colon and descending colon without evidence of diverticulitis. There is large fecal material in the ascending colon and transverse colon. The appendix is normal. No evidence of bowel obstruction, perforation, or abscess. The prostate gland is moderately enlarged. There is multilevel degenerative disc disease and spondylosis with disc bulges/protrusions. Of note, there is an 11 x 6 mm (transverse by AP) left paracentral and subarticular disc protrusion at L4/5 with severe canal stenosis and effacement of the left lateral recess. Impression Impression: Trace free pelvic fluid. This is nonspecific in a male patient and could reflect inflammation. Severe diverticulosis without diverticulitis. Borderline enlargement of the spleen measuring 13 cm in length. Multilevel spinal degenerative disc disease and spondylosis. Of note, there is a large left paracentral and subarticular disc protrusion at L4/5. RL: 6200 SSMENT/PLAN Milton Morris is a 54 year old male with PMH as listed above, admitted to the hospital with: Acute non-bloody emesis with type 2 NSTEMI Hx of CAD s/p PCI, recent [facility] 2019 showed patent stents per Dr. Roper. No indication to transfer for cath at this time. Likely viral gastroenteritis, now much improved Received IVF, will discontinue On IV heparin drip x 48h, to stop tomorrow Echo pending On aspirin, plavix, statin Follows Dr. Roper as outpatient Severe hypokalemia Repleted with IV and po Trend BMP ROSHNI on CKD 3 Improved with IVF Nephrology consult Dr. Arreola Prophylaxis: DVT- heparin Stress Ulcer: no indication for prophylaxis Code Status: Full Disposition: Home tomorrow Emerson Conteh MD UELTSShanti [facility]x [facility] - 01/04/2020 9:29 AM CDTSubjective Patient ID: Milton Morris is a 54 year old male. Care Management Social Functional Assessment Patient Name: Milton Morris Age: [age] year old Sex: male Patient's Previous Admission Date at [facility]: 02/17/2017 Current diagnosis and co-morbidities: NSTEMI Readmission Questions: Was patient discharged from any acute care hospital within the last 30 days: No Social Functional Assessment: Primary language spoken/preferred: Eritrean Mental Status: Alert & Oriented to Person,Place & Time Information given by: Self Patient's support system: Spouse Name and number of support system: Xin Ambrose, Primary Buffet Server: Self MPOA: No Living Arrangement: Home Address of living arrangement : [address] [place] [id number] Persons living in home: Self;Spouse Barriers to returning home: None Baseline functional status- ambulation: Independent Functional status-baseline personal care: Independent Baseline functional status- driving: Independent Baseline functional status- grocery shopping: Independent Functional status-baseline housekeeping: Independent Functional status-baseline meal prep: Independent Current functional status same as prior: Yes Do you have a PCP?: Yes Name of PCP: Dr. Rashid Tebbetts [facility] Agency: No Provider Services: No DME Company: No Equipment: None Hemodialysis: No Community resources utilized: None Funding Resources: Commercial Prescription coverage plan: Commercial Pharmacy where meds are filled: Other Other pharmacy: [facility] Anticipated services prior to disharge: Continue Medical Eval Expected mode of discharge transportation: Same as support system Additional Recommendations for DC: Medical clearance Additional info required for discharge planning: Pending medical evaluation Recommended discharge plan: Home SFA Complete: Social Functional Assessment complete: Yes Alcohol Use Screening (AUDIT-C) How often do you have a drink containing alcohol?: Never SCORE: 0 Did patient elect to have resources provided: No Role of Care Management explained. Any issues or concerns with obtaining/affording your medications at home: no. Are you or your support system able to turkey picker medications at discharge: yes. Review of Systems Objective Physical Exam Assessment/Plan Return home with VILLA [employer] Consultant - Care Management [facility] [phone] [email or web address] documented in this encounter H&P Notes Melia Graham MD - 01/03/2020 10:18 PM CDT MEDICINE ADMIT H&P Date of Service: 01/03/2020 CHIEF COMPLAINT: Vomiting History of Present Illness Derrick Wade is a 52 year old /White male who presents with complaints of vomiting. Patient denies any chest pain, SOB, palpitations, abdominal pain or diaphoresis. Found to have elevated troponins and was asked to be admitted. PAST MEDICAL HISTORY Past Medical History: Diagnosis Date Asthma CAD (coronary artery disease) CVA (cerebral vascular accident) DM2 (diabetes mellitus, type 2) Hypertension CKD4 Past Surgical History: Procedure Laterality Date REPAIR ARTERY HEAD/NECK (SHX) Cardia stents Family History Problem Relation Age of Onset Diabetes Mother Diabetes Father Diabetes Sister Diabetes Brother ALLERGIES No Known Allergies MEDICATIONS No current facility-administered medications on file prior to encounter. No current outpatient medications on file prior to encounter. SOCIAL HISTORY Social History Socioeconomic History Marital status: Single Spouse name: Not on file Number of children: Not on file Years of education: Not on file Highest education level: Not on file Occupational History Not on file Social Needs Financial resource strain: Not on file Food insecurity Worry: Not on file Inability: Not on file Transportation needs Medical: Not on file Non-medical: Not on file Tobacco Use Smoking status: Never Smoker Smokeless tobacco: Never Used Substance and Sexual Activity Alcohol use: Never Frequency: Never Binge frequency: Never Drug use: Never Sexual activity: Not on file Lifestyle Physical activity Days per week: Not on file Minutes per session: Not on file Stress: Not on file Relationships Social connections Talks on phone: Not on file Gets together: Not on file Attends temple service: Not on file Active member of club or organization: Not on file Attends meetings of clubs or organizations: Not on file Relationship status: Not on file Intimate partner violence Fear of current or ex partner: Not on file Emotionally abused: Not on file Physically abused: Not on file Forced sexual activity: Not on file Other Topics Concern Not on file Social History Narrative Not on file REVIEW OF SYSTEMS (-)=Negative,(+)=Positive General: (-) fever, (-) chills, (-) fatigue, (-) malaise Skin: (-) rash HEENT: (-) headache, (-) nasal discharge, (-) sore throat Neck: (-) difficulty swallowing Heme: (-) bleeding disorder Resp: (-) cough, (-) shortness of breath, (-) dyspnea on exertion Cardio: (-) chest pain GI: (+) nausea, (+) vomiting, (-) abdominal pain, (-) diarrhea, (-) constipation : (-) dysuria Endo: (+) diabetes, (-) thyroid disease Neuro: (-) numbness, (-) tingling Back: (-) pain HUSEYIN: (-) muscle pain, (-) joint pain Psych: (-) anxiety, (-) depression PHYSICAL EXAMINATION Vitals: Vitals: 01/03/201999 BP: 133/66 Pulse: 82 Resp: 14 Temp: SpO2: 94% General: alert and oriented; no apparent distress HEENT: normocephalic atraumatic, moist mucous membranes, [place]paque right eye Lungs: clear to auscultation bilaterally Cardio: S1, S2 normal; no murmurs, rubs or gallops Abdomen: soft; non-tender; non-distended; normoactive bowel sounds : not examined Rectal: not examined Extremities: no clubbing, cyanosis, or edema Skin: no rashes Neuro: no focal deficits, alert and oriented x 3 LABS - reviewed IMAGING - reviewed ASSESSMENT/PLAN NSTEMI DM2, controlled CAD HTN, controlled CKD4 Hypokalemia Hypomagnesemia Hyponatremia Plan: Admit inpatient ICU Cardiology consulted Heparin gtt ASA Plavix STATIN BB Oxygen therapy Replace electrolytes Keep K+>4 and Mg > 2 Serial troponins AM labs Reconcile home medications Basal and SSI as needed for glucose control Further recommendations will depend on patient's hospital course Above assessment and plan discussed at length with the patient, patient expressed full understanding. Questions and concerns addressed. Advanced Care Planning The surrogate decision maker: Jerod Arturo Code Status: complaint investigator spent:16 minutes documented in this encounter Consult Notes Yudy Gabriel - 01/05/2020 12:32 PM CDT MEDICAL NUTRITION THERAPY- CONSULT NOTE: Reason For Consultation: peoplesoft fscm developer for positive initial nutrition screen: Weight loss, disease severity Malnutrition Assessment: Nutritional Diagnosis: None SGA Rating: At Risk Plan: Renal 1 diet, small, frequent meals and snacks Admission Chief Complaint: had concerns including Vomiting. Present on Admission: NSTEMI (non-ST elevated myocardial infarction) Coronary artery disease involving [place] coronary artery of [place] heart without angina pectoris Dyslipidemia Essential hypertension Obesity (BMI 30-39.9) Stage 4 chronic kidney disease Type 1 diabetes mellitus with complication PMH/PSH: has a past medical history of CAD (coronary artery disease), CKD (chronic kidney disease), CVA (cerebral vascular accident), DM (diabetes mellitus), and HTN (hypertension). has a past surgical history that includes coronary artery bypass graft. GI and Nutrition Related Findings: Symptoms: Vomiting Difficulty: N/A GI tract alteration: N/A Alternative means of nutrition: N/A General: N/A Medications: Current Facility-Administered Medications: DULoxetine (CYMBALTA) capsule 30 mg, 30 mg, Oral, DAILY, Emerson Conteh MD, 30 mg at 01/04/201005 hydrOXYzine (ATARAX) tablet 10 mg, 10 mg, Oral, Q6HPRN, Emerson Conteh MD KCL (KLOR-CON M20) tablet 40 mEq, 40 mEq, Oral, ONCE, Emerson Conteh MD [START ON 01/06/2020] losartan (COZAAR) tablet 100 mg, 100 mg, Oral, DAILY, Marie Arreola MD ondansetron (ZOFRAN (PF)) injection 4 mg, 4 mg, Slow IV Push, Q6HPRN, Emerson Conteh MD, 4 mgat 01/05/20 1027 aspirin chewable tablet 81 mg, 81 mg, Oral, DAILY, Melia Garham MD, 81 mg at 01/05/20 0818 dextrose 50 % in water (D50W) injection 25 mL, 25 mL, Slow IV Push, PRN, Melia Graham MD glucagon (GLUCAGEN DIAGNOSTIC KIT) injection 1 mg, 1 mg, Intramuscular, PRN, Melia Graham MD metoprolol tartrate (LOPRESSOR) tablet 25 mg, 25 mg, Oral, BID, Marie Arreola MD, 25 mg at01/05/20 0818 Sliding Scale Insulin-Regular + Fsbg Testing, , Subcutaneous, AC+HS, Melia Graham MD, 3 Units at 01/05/20 1205 albuterol (VENTOLIN) inhaler 2 Puff, 2 Puff, Inhalation, Q4HPRN, Melia Graham MD clopidogreL (PLAVIX) tablet 75 mg, 75 mg, Oral, DAILY, Melia Graham MD, 75 mgat 01/05/20 0818 heparin (1,000 unit/mL, 10 mL vial) for Rebolusing, 3,000 Units, Slow IV Push, FOR REBOLUSING, Alberto Peralta MD, 3,000 Units at 01/04/20 0728 heparin 25,000 Units/250 mL (Premixed Bag) in 0.45 % NS, 1,000 Units/hr, IV Infusion, TITRATE, Alberto Peralta MD, Last Rate: 12.5 mL/hr at 01/05/20 0540, 1,250 Units/hr at 01/05/20 0540 hydralAZINE (APRESOLINE) injection 10 mg, 10 mg, Slow IV Push, Q6HPRN, Melia Graham MD, 10 mg at 01/05/20 0539 insulin detemir U-100 (LEVEMIR U-100 INSULIN) injection 30 Units, 30 Units, Subcutaneous, BID, Melia Graham MD, 30 Units at 01/05/20 1205 metoclopramide HCl (REGLAN) tablet 10 mg, 10 mg, Oral, Q6H, Melia Graham MD, 10 mg at 01/05/20 1217 rosuvastatin (CRESTOR) tablet 20 mg, 20 mg, Oral, QHS, Melia Graham MD, 20 mgat 01/04/20 1958 Lab and Medical Test Results: NA (mmol/L) Date Value 01/05/2020 134 (L) K (mmol/L) Date Value 01/05/2020 3.5 CALCIUM (mg/dL) Date Value 01/05/2020 8.2 (L) CL (mmol/L) Date Value 01/05/2020 101 BUN (mg/dL) Date Value 01/05/2020 16 CREATININE (mg/dL) Date Value 01/05/2020 2.26 (H) GLUCOSE (mg/dL) Date Value 01/05/2020 103 CO2 TOTAL (mmol/L) Date Value 01/05/2020 27 ALBUMIN (g/dL) Date Value 01/04/2020 3.1 (L) T PROTEIN (g/dL) Date Value 01/04/2020 6.2 (L) TOTAL BILI (mg/dL) Date Value 01/04/2020 0.3 BILI UNCON (mg/dL) Date Value 01/03/2020 0.5 BILI CONJ (mg/dL) Date Value 01/03/2020 0.0 ALT(SGPT) (U/L) Date Value 11/20/2018 31 ALTv (U/L) Date Value 01/04/2020 13 AST(SGOT) (U/L) Date Value 01/04/2020 29 ALK PHOS (U/L) Date Value 01/04/2020 117 Nutrition Assessment: Age: [age] year old Sex: male Ht: Ht Readings from Last 3 Encounters: 12/16/19 1.727 m (5' 8") 05/22/19 1.727 m (5' 8") 05/06/19 1.727 m (5' 8") Current Wt: Wt Readings from Last 1 Encounters: 01/04/20 80 kg (176 lb 4.8 oz) BMI: Body mass index is 26.81 kg/m. (Overweight) Weight History: Wt Readings from Last 10 Encounters: 01/04/20 80 kg (176 lb 4.8 oz) 12/16/19 83.9 kg (185 lb) 05/22/19 81.6 kg (180 lb) 05/06/19 85.7 kg (189 lb) 11/20/18 81.2 kg (179 lb) 04/01/18 86.2 kg (190 lb) 10/05/17 86.2 kg (190 lb) 02/17/17 90.7 kg (200 lb) 01/28/17 90.7 kg (200 lb) 11/12/16 91.1 kg (200 lb 12.8 oz) Inflammatory Markers: Hyperglycemia Current Dietary Order(s): Orders Placed This Encounter Procedures Renal I (2.5 g Na, 2.5 g K, 90 g Protein, 1200 mg Phos) Diet; Texture: Regular. EMR Documented Food Allergies/Intolerance/Cultural Preferences: Allergies Allergen Reactions Morphine Other - See comments "I've been told it makes me violent" Nutrition & Diet History: Mr. Morris was sleeping at time of visit. Nursing reports that he is consuming 1/2-3/4 of meals. Hehas a recorded weight loss of 9# in the last 2-3 weeks. Calculated Daily Nutritional Needs: Calories: 8273-4843 kcal/day = 25 kcal/kg current wt = MSJ x 1.2 Protein: 13.4% of kcal need/day = 64 g/day = 0.8 g/kg current wt Fluid: 1500 mL/day or per acute needs Nutrition Diagnosis: PES #1 Inadequate oral intake related to nausea, vomiting secondary to disease state as evidenced byeating reportedly half of meals and losing 9# in less than 3 weeks. Nutrition Intervention(s): Interventions: 1. Recommend continue the current diet order 2. Snacks between meals if intake falls below 3/4 of a meal Goals: 1. The pt's documented intake is no less than 75% of provided meals 2. Maintain weight D/C Planning: Renal diabetic diet Nutrition Monitoring and Evaluation: A registered dietitian will f/u in 5 days to report nutrition related information and to revise the recommended nutrition intervention(s) if necessary; please page with questions or concerns, thank you. Yudy Gabriel MS, RD, LD, [facility] Clinical Dietitian Donald COLLINS Office: [phone] signed by Yudy Gabriel at 01/05/2020 12:42 PM EMANUELTPRyanne house MD - 01/03/2020 9:16 PM CDT Associated Order(s): CONSULT CARDIOLOGY [facility] Cardiology Consult Note Patient: Milton Morris Date of : 1965 Date of service: Jorje Brandt Primary Care Physician: Jorje Brandt CHIEF COMPLAINT: Chief Complaint Patient presents with Vomiting HISTORY OF PRESENT ILLNESS: Milton Morris is a 54 year old male presented to the ER for nausea and vomiting. History from patient himself. Cardiology was consulted for elevated trop. Presents with nausea and vomiting since today morning. Around 10 times. No chest pain noted. No typical chest pain elicited with him. LOBATO NYHA Class II stable. Reports taking ASA + Plavix. Not taking BP meds. No history of exertional chest pain. No chest pain at rest. No PND or orthopnea. No pedal edema. No exertional palpitations or palpitations at rest. No syncopal attacks. History of CAD s/p PCI x2 (Dr. Roper), IDDM, diabetic retinopathy, HTN, CKD 4. Cath 12/2018: patent stents with no sig obs CAD Previous Cardiac Studies: IMAGING - I personally reviewed, pertinent results as below: ECG 12/2019 SR, T wave inversion in inferolateral leads similar to prior ECG. ECG 05/2019 Normal sinus rhythm Possible Left atrial enlargement Left axis deviation T wave abnormality, consider inferolateral ischemia Prolonged QT Abnormal ECG When compared with ECG of 06-MAY-2019 00:59, No significant change has occurred Echo 04/2019 Preserved LV EF. No significant valve diease PAST MEDICAL HISTORY Past Medical History: Diagnosis Date CAD (coronary artery disease) CKD (chronic kidney disease) CVA (cerebral vascular accident) DM (diabetes mellitus) age 21 HTN (hypertension) Past Surgical History: Procedure Laterality Date CORONARY ARTERY BYPASS GRAFT Family History Problem Relation Age of Onset Diabetes Mother Diabetes Father Diabetes Sister Diabetes Brother SOCIAL HISTORY Social History Socioeconomic History Marital status: Single Spouse name: Not on file Number of children: Not on file Years of education: Not on file Highest education level: Not on file Occupational History Not on file Social Needs Financial resource strain: Not on file Food insecurity Worry: Not on file Inability: Not on file Transportation needs Medical: Not on file Non-medical: Not on file Tobacco Use Smoking status: Never Smoker Smokeless tobacco: Never Used Substance and Sexual Activity Alcohol use: Yes Comment: twice weekly Drug use: No Sexual activity: Not on file Lifestyle Physical activity Days per week: Not on file Minutes per session: Not on file Stress: Not on file Relationships Social connections Talks on phone: Not on file Gets together: Not on file Attends temple service: Not on file Active member of club or organization: Not on file Attends meetings of clubs or organizations: Not on file Relationship status: Not on file Intimate partner violence Fear of current or ex partner: Not on file Emotionally abused: Not on file Physically abused: Not on file Forced sexual activity: Not on file Other Topics Concern Not on file Social History Narrative Not on file ALLERGIES Allergies Allergen Reactions Morphine Other - See comments "I've been told it makes me violent" MEDICATIONS Current Discharge Medication List STOP taking these medications metoclopramide HCl 10 mg tablet Comments: Reason for Stopping: Insulin Detemir (LEVEMIR FLEXTOUCH U-100 INSULN) 100 unit/mL (3 mL) injection Comments: Reason for Stopping: buPROPion SR 150 mg SR tablet Comments: Reason for Stopping: HUMALOG U-100 INSULIN 100 unit/mL solution Comments: Reason for Stopping: ondansetron 4 mg disintegrating tablet Comments: Reason for Stopping: albuterol 90 mcg/actuation inhaler Comments: Reason for Stopping: Insulin Mary D, Disposable, (OLIVER PEN NEEDLE) 32 gauge x 5/32" Ndle Comments: Reason for Stopping: clopidogrel (PLAVIX) 75 mg tablet Comments: Reason for Stopping: rosuvastatin (CRESTOR) 20 mg tablet Comments: Reason for Stopping: Current Facility-Administered Medications: dextrose 50 % in water (D50W) injection 25 mL, 25 mL, Slow IV Push, PRN, Emerson Conteh MD glucagon (GLUCAGEN DIAGNOSTIC KIT) injection 1 mg, 1 mg, Intramuscular, PRN, Emerson Conteh MD heparin (1,000 unit/mL, 10 mL vial) for Rebolusing, 3,000 Units, Slow IV Push, FOR REBOLUSING, Alberto Peralta MD heparin 25,000 Units/250 mL (Premixed Bag) in 0.45 % NS, 1,000 Units/hr, IV Infusion, TITRATE, Alberto Peralta MD, Last Rate: 10 mL/hr at 01/03/201751, 1,000 Units/hr at 01/03/201751 hydralAZINE (APRESOLINE) injection 10 mg, 10 mg, Slow IV Push, Q6HPRN, Melia Graham MD NaCl 0.9% (NS) 1000 mL + KCL 40 mEq, , IV Infusion, CONTINUOUS, Emerson Conteh MD, Last Rate:100 mL/hr at 01/03/20 1836 REVIEW OF SYSTEMS: Comprehensive 10-system review was conducted and were negative except for what's noted in the HPI. The following systems were reviewed: Constitutional, cardiovascular, respiratory, gastrointestinal, genitourinary, musculoskeletal, neurologic, psychiatric, endocrinological, and hematological. PHYSICAL EXAMINATION: Vitals: 01/03/20 1600 01/03/20 1621 01/03/20 1700 01/03/201999 BP: (!) 167/92 (!) 180/81 (!) 178/91 133/66 Pulse: 88 78 76 82 Resp: 15 18 12 14 Temp: TempSrc: SpO2: 98% 99% 100% 94% Weight: General: no apparent distress HEENT: normocephalic atraumatic Neck: supple, no lymphadenopathy, no bruits, no JVD Lungs: clear to auscultation bilaterally. No wheezes or rhonchi. No increased work of breathing. Cardio: Regular rate and rhythm, S1&S2 normal, no murmurs, rubs or gallops Abdomen: soft; non-tender; non-distended; normoactive bowel sounds. : not examined Rectal: not examined Extremities: no clubbing, cyanosis, or edema. Skin: no rashes, no visible lesions. Neuro: no gross focal deficits LABS - Reviewed pertinent labs as below: CBC BMP PT/INR WBC (10*3/L) Date Value 01/03/2020 15.47 (H) NA (mmol/L) Date Value 01/03/2020 130 (L) No results found for: PT PLT (10*3/L) Date Value 01/03/2020 233 K (mmol/L) Date Value 01/03/2020 2.5 (LL) INR (no units) Date Value 01/03/2020 1.1 HGB (g/dL) Date Value 01/03/2020 11.4 (L) BUN (mg/dL) Date Value 01/03/2020 24 (H) HCT (%) Date Value 01/03/2020 37.7 (L) CREATININE (mg/dL) Date Value 01/03/2020 2.70 (H) LIPID PROFILE GLUCOSE (mg/dL) Date Value 01/03/2020 123 (H) CHOL (mg/dL) Date Value 11/20/2018 113 (L) TSH LDL CHOL (mg/dL) Date Value 11/20/2018 46 TSH (mIU/L) Date Value 05/06/2019 2.58 CARDIAC ENZYMES HDL (mg/dL) Date Value 11/20/2018 43 CK (U/L) Date Value 05/06/2019 225 (H) TRIG (mg/dL) Date Value 11/20/2018 121 LFTs No results found for: CKMB AST(SGOT) (U/L) Date Value 01/03/2020 36 TROPONIN I (ng/mL) Date Value 01/03/2020 1.330 (H) ALT(SGPT) (U/L) Date Value 11/20/2018 31 ALTv (U/L) Date Value 01/03/2020 17 No results found for: BNP LDL CHOL (mg/dL) Date Value 11/20/2018 46 Recent Labs 01/03/20 1656 TROPNI 1.330* There are no current results on file for these tests and/or test for 1 year. LDL CHOL (mg/dL) Date Value 11/20/2018 46 NT-proBNP (pg/mL) Date Value 05/06/2019 3,900 (H) ASSESSMENT/PLAN Active Problems: Obesity (BMI 30-39.9) Type 1 diabetes mellitus with complication Dyslipidemia Coronary artery disease involving [place] coronary artery of [place] heart without angina pectoris Essential hypertension Myocardial infarction type 2 Stage 4 chronic kidney disease NSTEMI (non-ST elevated myocardial infarction) Elevated trop: Possible Type 2 PA in the setting of CKD Vs Type 1 PA. Continue IV heparin drip. Continue on Plavix + ASA 81 mg daily. Recommend starting Toprol XL 25 mg daily. No new ECG changes. No typical chest pain history elicited. Second trop is stable. Recommend Serial trop X 2, ECG in AM, Echo to assess to EF and wall motion changes. Tele monitoring. Per Dr Roper. He had cath 12/2018 which showed patent stents. If trop increasing or tele shows NSVT, then he needs to transferred for cath. CAD s/p PCI: Continue on Plavix + ASA 81 mg daily. Continue Tele monitoring. Cath 12/2018: patent stents with no sig obs CAD. HTN: Elevated. Recommend restarting his prior dose of Norvasc 5 mg daily, Imdur 30 mg daily. Home BP log recommended. Cross check his BP machine. Appropriate ways to check home BP discussed. Goals BP < 130/80 stressed. Explained if BP > 130/80, adviced to send us the log. Lifestyle modifications stressed. Dyslipidemia: Recommended to keep LDL < 70. Lifestyle modifications stressed. Currently on Crestor 20 mg daily. LDL CHOL (mg/dL) Date Value 11/20/2018 46 CKD4: as per primary team/neprhorlogy team. T1DM: as per primary team. Recommended goal BP < 130/80 consistently, LDL << 70, HbA1c < 6.5. Recommended, explained and stressed the importance of healthy eating habits and exercises and lifestyle modifications My diagnostic impression and treatment plans were discussed at length with the patient. All side effects as well as drug-drug interactions and risks discussed at length. Questions answered. Thank you for allowing us to participate in the care of Milton oMrris. If you have any questions or concerns please feel free to call our office at [phone]. I would be happy to be of further assistance for Milton Morris wellbeing. Shade Piña MD Case Supervisor, Division of Cardiology [facility] documented in this encounter Nursing Notes Mounika Cornejo RN - 01/05/2020 8:18 AM CDTPatient requested to hold his Levemir insulin for now, he doesn't feel like eating and says his sugar drops fast. 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 States that after he got home bebegan vomiting and has vomited greater than 10 times. Reports nausea. Denies abdominal pain or other symptoms. Hx of IDDM, HTN EMS gave 4mg Zofram IVP, 25mg Benadryl IVP, 5mg Metoprolol IVP Alberto Steiner MD - 01/03/2020 12:54 PM CDT EMERGENCY DEPARTMENT ENCOUNTER [facility] Patient Name: Milton Morris Date of : 1965 54 year old Exam Room:[place] [address] Primary Care Physician: Jorje Brandt Pre- Hospital Patient Escorted by: Self [9] Mode of Arrival: EMS - [facility] [place] ([place]) [43] EMS Treatment Prior to ED Arrival: Chief Complaint Chief Complaint Patient presents with Vomiting HPI History provided by: Patient Vomiting Severity: Moderate Timing: Constant Quality: Stomach contents Progression: Improving Chronicity: New Recent urination: Normal Relieved by: Nothing Worsened by: Nothing Associated symptoms: no abdominal pain, no chills, no cough, no fever and no headaches Risk factors: diabetes Past Medical History / Immunizations Past Medical History: Diagnosis Date CAD (coronary artery disease) CKD (chronic kidney disease) CVA (cerebral vascular accident) DM (diabetes mellitus) age 21 HTN (hypertension) Tetanus received in last 5 years: Unknown Past Surgical History Past Surgical History: Procedure Laterality Date CORONARY ARTERY BYPASS GRAFT Allergies Allergies Allergen Reactions Morphine Other - See comments "I've been told it makes me violent" Social History Tobacco Use Never smoked or used smokeless tobacco. Alcohol Use Yes. Comments: twice weekly Drug Use No. Review of Systems Review of Systems Constitutional: Negative. Negative for chills, fatigue, fever and unexpected weight change. HENT: Negative. Eyes: Negative. Negative for discharge and itching. Respiratory: Negative. Negative for cough, chest tightness, shortness of breath and wheezing. Cardiovascular: Negative. Negative for chest pain and palpitations. Gastrointestinal: Positive for nausea and vomiting. Negative for abdominal distention and abdominal pain. Genitourinary: Negative. Negative for dysuria, urgency, frequency and flank pain. Musculoskeletal: Negative. Skin: Negative. Negative for color change, pallor and wound. Neurological: Negative. Negative for dizziness, syncope, light-headedness and headaches. Psychiatric/Behavioral: Negative. Negative for agitation and behavioral problems. All other systems reviewed and are negative. Endocrine: Endocrine negative Physical Exam BP (!) 180/81 | Pulse 78 | Temp 35.9 C (96.6 F) (Oral) | Resp 18 | Wt 83.9 kg (185 lb) | SpO2 99% | BMI 28.13 kg/m Physical Exam Vitals signs reviewed. Constitutional: Appearance: He is well-developed. HENT: Head: Normocephalic and atraumatic. Nose: Nose normal. Eyes: Conjunctiva/sclera: Conjunctivae normal. Neck: Musculoskeletal: Normal range of motion and neck supple. Trachea: No tracheal deviation. Cardiovascular: Rate and Rhythm: Normal rate and regular rhythm. Heart sounds: Normal heart sounds. No murmur. No friction rub. Pulmonary: Effort: Pulmonary effort is normal. No respiratory distress. Breath sounds: Normal breath sounds. No stridor. No wheezing or rales. Abdominal: General: Bowel sounds are normal. There is no distension. Palpations: Abdomen is soft. Tenderness: There is no abdominal tenderness. There is no guarding or rebound. Musculoskeletal: Normal range of motion. Skin: General: Skin is warm and dry. Neurological: Mental Status: He is alert and oriented to person, place, and time. Cranial Nerves: No cranial nerve deficit. Sensory: No sensory deficit. Psychiatric: Behavior: Behavior normal. Labs Recent Results (from the past 24 hour(s)) CBC with Differential Collection Time: 01/03/20 1:44 PM Result Value Ref Range WBC 15.47 (H) 4.20 - 10.70 10*3/L RBC 5.55 (H) 4.26 - 5.52 10*6/L HGB 11.4 (L) 12.2 - 16.4 g/dL HCT 37.7 (L) 38.4 - 49.3 % MCV 67.9 (L) 81.7 - 95.6 fL MCH 20.5 (L) 26.1 - 32.7 pg MCHC 30.2 (L) 31.2 - 35.0 g/dL RDW-SD 46.2 38.5 - 51.6 fL RDW-CV 20.1 (H) 12.1 - 15.4 % PLT 233 150 - 328 10*3/L MPV IPF % 7.6 1.2 - 10.7 % NRBC/100 WBC 0.0 0.0 - 10.0 /100 WBCs NRBC x10^3 <0.01 10*3/L GRAN MAT (NEUT) % 84.4 % IMM GRAN % 0.60 % LYMPH % 5.4 % MONO % 8.7 % EOS % 0.6 % BASO % 0.3 % GRAN MAT x10^3(ANC) 13.07 (H) 1.99 - 6.95 10*3/uL IMM GRAN x10^3 0.09 (H) 0.00 - 0.06 10*3/uL LYMPH x10^3 0.83 (L) 1.09 - 3.23 10*3/uL MONO x10^3 1.34 (H) 0.36 - 1.02 10*3/uL EOS x10^3 0.09 0.06 - 0.53 10*3/uL BASO x10^3 0.05 0.01 - 0.09 10*3/uL Basic Metabolic Panel (NA, K, CL, CO2, GLUCOSE, BUN, CREATININE, CA) Collection Time: 01/03/20 1:44 PM Result Value Ref Range NA 130 (L) 135 - 145 mmol/L K 2.5 (LL) 3.5 - 5.0 mmol/L CL 90 (L) 98 - 108 mmol/L CO2 TOTAL 26 23 - 31 mmol/L AGAP 14 2 - 16 BUN 24 (H) 7 - 23 mg/dL GLUCOSE 123 (H) 70 - 110 mg/dL CREATININE 2.70 (H) 0.60 - 1.25 mg/dL CALCIUM 8.7 8.6 - 10.6 mg/dL eGFR Calculation (Non-) 24.8 mL/min/1.73m2 eGFR Calculation () 30.1 mL/min/1.73m2 Hepatic Function Panel (ALB, T.PRO, BILI T, BU/BC, ALT, AST, ALK PHOS) Collection Time: 01/03/20 1:44 PM Result Value Ref Range TOTAL BILI 0.5 0.1 - 1.1 mg/dL BILI UNCON 0.5 0.1 - 1.1 mg/dL BILI CONJ 0.0 0.0 - 0.3 mg/dL T PROTEIN 7.4 6.3 - 8.2 g/dL ALBUMIN 3.8 3.5 - 5.0 g/dL ALK PHOS 131 (H) 34 - 122 U/L ALTv 17 5 - 50 U/L AST(SGOT) 36 13 - 40 U/L Lipase Serum Collection Time: 01/03/20 1:44 PM Result Value Ref Range LIPASE 29 0 - 220 U/L aPTT Collection Time: 01/03/20 1:44 PM Result Value Ref Range APTT Patient 28 23 - 38 Seconds Prothrombin Time (PT) / INR Collection Time: 01/03/20 1:44 PM Result Value Ref Range PROTIME PATIENT 13.6 12.0 - 14.7 Seconds INR 1.1 TROPONIN I Collection Time: 01/03/20 1:44 PM Result Value Ref Range TROPONIN I 1.530 (H) <=0.034 ng/mL MAGNESIUM Collection Time: 01/03/20 1:44 PM Result Value Ref Range MAGNESIUM 1.6 (L) 1.7 - 2.4 mg/dL AC PANEL 21 + LACTIC ACID Collection Time: 01/03/20 2:00 PM Result Value Ref Range PH 7.42 7.32 - 7.42 PCO2 MATEUSZ 41 41 - 51 mmHg PO2 MATEUSZ 35 25 - 40 mmHg HCO3 MATEUSZ 26 24 - 28 mEq/L AC VBE(BEAKER) 1.6 mEq/L THB MATEUSZ 11.9 (L) 13.5 - 18.0 g/dL %O2HB MATEUSZ 65.6 (H) 52.0 - 63.0 % %COHB MATEUSZ 1.4 0.0 - 1.5 % %METHB MATEUSZ 0.3 (L) 0.4 - 1.5 % VOL%O2 MATEUSZ 11.0 6.0 - 12.0 % NA 130 (L) 135 - 145 mmol/L K+ 2.8 (LL) 3.5 - 5.0 mmol/L AC CA IONZ 3.90 (L) 4.50 - 5.30 mg/dL GLUCOSE 115 (H) 70 - 110 mg/dL LACTIC ACID 1.99 mmol/L POCT GLUCOSE (AUTOMATED) Collection Time: 01/03/20 2:00 PM Result Value Ref Range POCT GLU 120 (H) 70 - 110 mg/dL COVID-19 (ID NOW RAPID TESTING) Collection Time: 01/03/20 3:35 PM Specimen: NASOPHARYNGEAL SWAB Result Value Ref Range SARS-CoV-2 Rapid ID NOW Not Detected Not Detected Imaging [facility] Encounter on 01/03/20 CT ABDOMEN PELVIS WO CONTRAST Narrative History: Nausea, vomiting . Exam: CT ABDOMEN PELVIS WO CONTRAST Date: 01/03/2020 3:00 PM Ordering provider: ALBERTO PERALTA Technique: Axial CT scanning of the abdomen and pelvis is performed without contrast. Radiation dose reduction performed using ALARA principles. Comparison: None available. Findings: The spleen is borderline enlarged measuring 13 cm in length. Liver, pancreas, gallbladder, adrenal glands, and kidneys are unremarkable on this noncontrast exam. No evidence of biliary ductal dilatation, renal stone, or hydronephrosis. There is a thin urachal remnant. No evidence of abdominal aortic aneurysm. There is trace free pelvic fluid, which is nonspecific. There is severe diverticulosis in the sigmoid colon and descending colon without evidence of diverticulitis. There is large fecal material in the ascending colon and transverse colon. The appendix is normal. No evidence of bowel obstruction, perforation, or abscess. The prostate gland is moderately enlarged. There is multilevel degenerative disc disease and spondylosis with disc bulges/protrusions. Of note, there is an 11 x 6 mm (transverse by AP) left paracentral and subarticular disc protrusion at L4/5 with severe canal stenosis and effacement of the left lateral recess. Impression Impression: Trace free pelvic fluid. This is nonspecific in a male patient and could reflect inflammation. Severe diverticulosis without diverticulitis. Borderline enlargement of the spleen measuring 13 cm in length. Multilevel spinal degenerative disc disease and spondylosis. Of note, there is a large left paracentral and subarticular disc protrusion at L4/5. RL: 6200 Orders and Treatments Orders Placed This Encounter Procedures CT ABDOMEN PELVIS WO CONTRAST CBC with Differential Basic Metabolic Panel (NA, K, CL, CO2, GLUCOSE, BUN, CREATININE, CA) Hepatic Function Panel (ALB, T.PRO, BILI T, BU/BC, ALT, AST, ALK PHOS) Lipase Serum aPTT Prothrombin Time (PT) / INR AC PANEL 21 + LACTIC ACID POCT GLUCOSE (AUTOMATED) TROPONIN I MAGNESIUM COVID-19 (ID NOW RAPID TESTING) Orders Placed This Encounter Medications NaCl 0.9% (NS) bolus infusion 1,000 mL DISCONTD: KCL (POTASSIUM CHLORIDE) 10 mEq in NaCl 0.9% (NS) 100 mL piggyback DISCONTD: potassium chloride in water 10 mEq/100 mL RTU 10 mEq potassium chloride in water 10 mEq/100 mL RTU 10 mEq DISCONTD: heparin 25,000 Units/250 mL (Premixed Bag) in 0.45 % NS DISCONTD: heparin (1,000 unit/mL, 10 mL vial) for Rebolusing DISCONTD: heparin 1000 unit/mL injection Soln 4,000 Units magnesium sulfate in water 2 gram/50 mL (4 %) infusion 2 g heparin 25,000 Units/250 mL (Premixed Bag) in 0.45 % NS heparin (1,000 unit/mL, 10 mL vial) for Rebolusing heparin 1000 unit/mL injection Soln 4,000 Units Procedures EKG Time 1436 Rate 71 [place] normal Intervals normal Inverted T waves in lateral leads which are residual No acute ischemia Normal Sinus Notes & MDM Patient was evaluated for an emergency medical condition related to Vomiting . Differential diagnoses considered by presenting complaints but not limited to: Food poisoning Gastritis Assessment [address] Roper states the patient underwent a cardiac catheterization in December 2018. At that time his two cardiac stents were widely patent. Dr. Roper states he feels comfortable with the patient being admitted to the hospitalist here at [facility]. He noted that the hospitalist should give him call for any questions or concerns. History, physical exam findings, results of visit, differential diagnosis, medication regimens and plan of future care have been considered. Additional MDM may be found in the ED course. Differential diagnosis considered and final disposition made based on information gathered during evaluation and may not be completely ruled out or specifically listed. Vital signs were rechecked before final disposition. Diagnosis ICD-10-CM ICD-9-CM 1. Vomiting, intractability of vomiting not specified, presence of nausea not specified, unspecifiedvomiting type R11.10 787.03 2. Hypokalemia E87.6 276.8 3. Chronic kidney disease, unspecified CKD stage N18.9 585.9 4. Hypomagnesemia E83.42 275.2 5. NSTEMI (non-ST elevated myocardial infarction) I21.4 410.70 6. Leukocytosis, unspecified type D72.829 288.60 Disposition & Follow Up ED Disposition None Patient's Medications START taking these medications No medications on file CONTINUE taking these medications which have NOT CHANGED ALBUTEROL 90 MCG/ACTUATION INHALER Inhale 2 Puffs every 4 (four) hours as needed for Wheezing orShortness of Breath. BUPROPION SR 150 MG SR TABLET TAKE 1 TABLET BY MOUTH ONCE DAILY CLOPIDOGREL (PLAVIX) 75 MG TABLET Take 75 mg by mouth daily. HUMALOG U-100 INSULIN 100 UNIT/ML SOLUTION USE DIRECTED PER SLIDING SCALE; MAX DAILY DOSE 60 UNITS INSULIN DETEMIR (LEVEMIR FLEXTOUCH U-100 INSULN) 100 UNIT/ML (3 ML) INJECTION inject 30 Units under the skin 2 (two) times daily. INSULIN NEEDLES, DISPOSABLE, (OLIVER PEN NEEDLE) 32 GAUGE X 5/32" NDLE Use as directed, QID, Dx;E11.9 METOCLOPRAMIDE HCL 10 MG TABLET Take 1 tablet by mouth every 6 (six) hours. ONDANSETRON 4 MG DISINTEGRATING TABLET Take 1 tablet by mouth every 8 (eight) hours as needed for Nausea and Vomiting (N/V). ROSUVASTATIN (CRESTOR) 20 MG TABLET Take 20 mg by mouth at bedtime. START taking Modified Medications as Prescribed No medications on file STOP taking these medications No medications on file Alberto Peralta Jr., MD Clinical Case Supervisor [facility] Emergency Department documented in this encounter Miscellaneous Notes Care Plan - Mounika Cornejo RN - 01/05/2020 3:55 PM CDT Problem: Falls, Risk of Goal: Absence of falls Outcome: Resolved Problem: Bleeding, Risk of Goal: Absence of impaired coagulation signs and symptoms Outcome: Resolved Goal: Absence of active bleeding Outcome: Resolved Problem: Cardiac Output - Decreased Goal: Cardiac output within specified parameters Outcome: Resolved Goal: Absence of signs and symptoms of decreased cardiac output Outcome: Resolved Problem: Discharge Planning Goal: Absence of venous thromboembolism Outcome: Resolved Goal: Adequate for discharge Outcome: Resolved Goal: Effective communication Outcome: Resolved Problem: Glucose Control - Initiated in Adult CC Goal: Glucose level within specified parameters Outcome: Resolved Problem: Pain Goal: Control of pain at or below patient's documented comfort goal Outcome: Resolved Goal: Reduction in pain sensation Outcome: Resolved Problem: Tissue Perfusion - Altered, Risk of Goal: Hemodynamically stable Outcome: Resolved ursing Note - Mounika Cornejo RN - 01/05/2020 9:00 AM CDTPatient states he is feeling anxious from all the cords and feels like he is tied down, he cannot rem ember the name of the medication he is on for the anxiety he also feels nauseated. Called the pharmacy and they were unable to find the medication in his profile, assisted the patient to call Dr. Brandt's office. He was able to get the name of the medication, Duloxetine [address] Conteh notified and orders were received and carried out. are Plan - David Ball RN - 01/04/2020 12:56 AM CDT Problem: Falls, Risk of Goal: Absence of falls 01/04/202054 by David Ball RN Outcome: Progressing as expected 01/04/202053 by David Ball RN Outcome: Progressing as expected Problem: Bleeding, Risk of Goal: Absence of impaired coagulation signs and symptoms 01/04/202054 by David Ball RN Outcome: Progressing as expected 01/04/202053 by David Ball RN Outcome: Progressing as expected Goal: Absence of active bleeding 01/04/202054 by David Ball RN Outcome: Progressing as expected 01/04/202053 by David Ball RN Outcome: Progressing as expected Problem: Cardiac Output - Decreased Goal: Cardiac output within specified parameters 01/04/202054 by David Ball RN Outcome: Progressing as expected 01/04/202053 by David Ball RN Outcome: Progressing as expected Goal: Absence of signs and symptoms of decreased cardiac output 01/04/202054 by David Ball RN Outcome: Progressing as expected 01/04/202053 by David Ball RN Outcome: Progressing as expected Problem: Discharge Planning Goal: Absence of venous thromboembolism Outcome: Progressing as expected Goal: Adequate for discharge Outcome: Progressing as expected Goal: Effective communication Outcome: Progressing as expected Problem: Glucose Control - Initiated in Adult CC Goal: Glucose level within specified parameters Outcome: Progressing as expected Problem: Pain Goal: Control of pain at or below patient's documented comfort goal Outcome: Progressing as expected Goal: Reduction in pain sensation Outcome: Progressing as expected Problem: Tissue Perfusion - Altered, Risk of Goal: Hemodynamically stable Outcome: Progressing as expected are Plan - Caren Galindo RN - 01/03/2020 6:29 PM CDT Problem: Falls, Risk of Goal: Absence of falls Outcome: Progressing as expected Problem: Bleeding, Risk of Goal: Absence of impaired coagulation signs and symptoms Outcome: Progressing as expected Goal: Absence of active bleeding Outcome: Progressing as expected Problem: Cardiac Output - Decreased Goal: Cardiac output within specified parameters Outcome: Progressing as expected Goal: Absence of signs and symptoms of decreased cardiac output Outcome: Progressing as expected D Procedure Note - Alberto Peralta MD - 01/03/2020 4:35 PM CDTAssociated Order(s): Critical CareCritical Care Performed by: Alberto Peralta MD Authorized by: Alberto Peralta MD Critical care provider statement: Critical care time (minutes): 60 Critical care was necessary to treat or prevent imminent or life-threatening deterioration of the following conditions: Cardiac failure Critical care was time spent personally by me on the following activities: Ordering and performing treatments and interventions, ordering and review of laboratory studies, ordering and review of radiographic studies, pulse oximetry, re-evaluation of patient's condition, review of old charts, evaluation of patient's response to treatment, discussions with primary provider, discussions with consultants, development of treatment plan with patient or surrogate, blood draw for specimens and examination of patient D Nurse Note - Vinita Zarate RN - 01/03/2020 1:09 PM CDTPatients dad left his number. [phone]. documented in this encounter Plan of Treatment Name Type Priority Associated Diagnoses Date/Ti me VITAMIN D, 25-OH LAB Routine 01/05/2020 3:27 AM CDT ELECTROPHORESIS, SERUM LAB Routine 01/04 3:26 AM CDT Name Type Priority Associated Order Schedule Diagnoses Transfusion Reaction LAB Routine FOR FOL LOW-UP TESTING Investigation until disconti nued starting 2019 Urinalysis (Spun) LAB Routine FOR FOLLOW -UP TESTING until discontin ued starting 2019 EKG-12 LEAD ROUTINE HEART STATION Routine ONCE fo r 1 Occurrences sta rting 01/03/2020 unti l 01/03/2020 VITAMIN D, 25-OH LAB Routine ONCE for 1 Occurrences sta rting 01/05/2020 unti l 01/05/2020 ELECTROPHORESIS, SERUM LAB Routine ONCE for 1 Occurrences sta rting 01/05/2020 unti l 01/05/2020, 1 completed VITAMIN B12, LEVEL LAB Routine ONCE for 1 Occurrences sta rting 01/05/2020 unti l 01/05/2020 FOLATE LAB Routine ONCE for 1 Occurrences sta rting 01/05/2020 unti l 01/05/2020 IRON PANEL LAB Routine ONCE for 1 Occurrences sta rting 01/05/2020 unti l 01/05/2020 Health Maintenance Due Date Last Done Comments EYE EXAM 1976 Depression Screening 1978 DTaP,Tdap,and Td Vaccines (1 1985 - Tdap) COLON CANCER SCREENING 2016 ANNUAL FIT/FOBT COLON CANCER SCREENING FIT 2016 DNA EVERY 3 YEARS COLON CANCER SCREENING 2016 SIGMOIDOSCOPY EVERY 5 YEARS COLONOSCOPY 2016 Colorectal Cancer Screening 2016 Zoster Recombinant Vaccine 2016 (SHINGRIX) (1 of 2) FOOT EXAM 11/21/2019 11/20/2018, 11/20/2018, 11/12/2016, Additional history exists URINE MICROALBUMIN 11/21/2019 11/20/2018, 11/12/2016 INFLUENZA VACCINE (#1) 2019 HgA1C 07/02/2020 01/03/2020, 05/06/2019, 11/20/2018, Additional history exists LDL-C 01/02/2021 01/03/2020, 11/20/2018, 11/12/2016 CREATININE (SERUM) 01/03/2021 01/04/2020, 01/03/2020, 01/03/2020, Additional history exists PNEUMOCOCCAL 0-64 YEARS Aged Out No longe r eligible COMBINED SERIES based on patient 's age to complete this topic documented as of this encounter Procedures Procedure Name Priority Date/Time Associated Diagnosis Comme nts POCT GLUCOSE Routine 01/05/2020 12:03 Results for (AUTOMATED) PM CDT this procedure are in the results section. POCT GLUCOSE Routine 01/05/2020 9:12 Results for (AUTOMATED) AM CDT this procedure are in the results section. POCT GLUCOSE Routine 01/05/2020 7:55 Results for (AUTOMATED) AM CDT this procedure are in the results section. ACTIVATED PARTIAL Routine 01/05/2020 3:26 Result s for THRMPLAS LAINEY AM CDT this procedure are in the results section. CBC WITH DIFF Routine 01/05/2020 3:26 Results fo r AM CDT this procedure are in the results section. INTACT PTH CALCIUM Routine 01/05/2020 3:26 Resul ts for GROUP AM CDT this procedure are in the results section. BASIC METABOLIC PANEL Routine 01/05/2020 3:26 Re sults for (NA, K, CL, CO2, AM CDT this proced ure GLUCOSE, BUN, are in the CREATININE, CA) results section. TROPONIN I Add-on 01/05/2020 3:26 Results for AM CDT this procedure are in the results section. FERRITIN SERUM Add-on 01/05/2020 3:26 Results f or AM CDT this procedure are in the results section. POCT GLUCOSE Routine 01/04/2020 4:51 Results for (AUTOMATED) PM CDT this procedure are in the results section. ACTIVATED PARTIAL Routine 01/04/2020 1:57 Result s for THRMPLAS LAINEY PM CDT this procedure are in the results section. PROTEIN CREAT RATIO Routine 01/04/2020 12:33 Resu lts for URINE RANDOM PM CDT this procedure are in the results section. POCT GLUCOSE Routine 01/04/2020 11:46 Results for (AUTOMATED) AM CDT this procedure are in the results section. ECHO ROUTINE W/DOPPLER Routine 01/04/2020 11:44 Vomiting, COLOR AM CDT intractability of vomiting not specified, presence of nausea not specified, unspecified vomiting type US RETROPERITONEAL Routine 01/04/2020 11:04 Stage 4 chronic Re sults for COMPLETE AM CDT kidney disease this procedur e are in the results section. POCT GLUCOSE Routine 01/04/2020 7:58 Results for (AUTOMATED) AM CDT this procedure are in the results section. EKG-12 LEAD Routine 01/04/2020 6:16 AM CDT EKG-12 LEAD Routine 01/04/2020 6:11 AM CDT ACTIVATED PARTIAL STAT 01/04/2020 5:13 Result s for THRMPLAS LAINEY AM CDT this procedure are in the results section. CBC WITHOUT DIFF Routine 01/04/2020 5:13 Results for AM CDT this procedure are in the results section. COMP. METABOLIC PANEL Routine 01/04/2020 5:13 Re sults for (84948) AM CDT this procedure are in the results section. TROPONIN I Add-on 01/04/2020 5:13 Results for AM CDT this procedure are in the results section. MAGNESIUM Routine 01/04/2020 5:13 Results for AM CDT this procedure are in the results section. POCT GLUCOSE Routine 01/04/2020 3:53 Results for (AUTOMATED) AM CDT this procedure are in the results section. ACTIVATED PARTIAL STAT 01/03/2020 9:45 Result s for THRMPLAS LAINEY PM CDT this procedure are in the results section. TROPONIN I Routine 01/03/2020 9:45 Results for PM CDT this procedure are in the results section. POCT GLUCOSE Routine 01/03/2020 9:44 Results for (AUTOMATED) PM CDT this procedure are in the results section. POCT GLUCOSE Routine 01/03/2020 4:58 Results for (AUTOMATED) PM CDT this procedure are in the results section. N-TERMINAL PRO-BNP Add-on 01/03/2020 4:56 Resul ts for PM CDT this procedure are in the results section. LIPID PANEL Add-on 01/03/2020 4:56 Results for (70009)(TOTAL PM CDT this procedure CHOLESTEROL, are in the TRIGLYCERIDES, HDL) results section. BASIC METABOLIC PANEL Add-on 01/03/2020 4:56 Re sults for (NA, K, CL, CO2, PM CDT this proced ure GLUCOSE, BUN, are in the CREATININE, CA) results section. TROPONIN I STAT 01/03/2020 4:56 Results for PM CDT this procedure are in the results section. CRITICAL CARE Routine 01/03/2020 4:35 Results fo r PM CDT this procedure are in the results section. CT ABDOMEN PELVIS WO STAT 01/03/2020 3:35 Vomiting, Res ults for CONTRAST PM CDT intractability of this proce dure vomiting not are in the specified, presence results of nausea not section. specified, unspecified vomiting type COVID-19 (ID NOW RAPID STAT 01/03/2020 3:35 Vomiting, R esults for TESTING) PM CDT intractability of this proce dure vomiting not are in the specified, presence results of nausea not section. specified, unspecified vomiting type Hypokalemia Chronic kidney disease, unspecified CKD stage Hypomagnesemia NSTEMI (non-ST elevated myocardial infarction) Leukocytosis, unspecified type EKG-12 LEAD Routine 01/03/2020 2:36 PM CDT AC PANEL 21 + LACTIC STAT 01/03/2020 2:00 Vomiting, Res ults for ACID PM CDT intractability of this proce dure vomiting not are in the specified, presence results of nausea not section. specified, unspecified vomiting type POCT GLUCOSE Routine 01/03/2020 2:00 Results for (AUTOMATED) PM CDT this procedure are in the results section. ACTIVATED PARTIAL STAT 01/03/2020 1:44 Vomiting, Result s for THRMPLAS LAINEY PM CDT intractability of this proce dure vomiting not are in the specified, presence results of nausea not section. specified, unspecified vomiting type PROTHROMBIN TIME / INR STAT 01/03/2020 1:44 Vomiting, R esults for PM CDT intractability of this proce dure vomiting not are in the specified, presence results of nausea not section. specified, unspecified vomiting type GLYCOSYLATED Add-on 01/03/2020 1:44 Results for HEMOGLOBIN (A1C) PM CDT this proced ure are in the results section. CBC WITH DIFF STAT 01/03/2020 1:44 Vomiting, Results fo r PM CDT intractability of this proce dure vomiting not are in the specified, presence results of nausea not section. specified, unspecified vomiting type BASIC METABOLIC PANEL STAT 01/03/2020 1:44 Vomiting, Re sults for (NA, K, CL, CO2, PM CDT intractability of this p rocedure GLUCOSE, BUN, vomiting not are in the CREATININE, CA) specified, presence resul ts of nausea not section. specified, unspecified vomiting type HEPATIC FUNCTION PANEL STAT 01/03/2020 1:44 Vomiting, R esults for (47271) PM CDT intractability of this proce dure (ALB,T.PRO,BILI vomiting not are in the T,BU/BC,ALT,AST,ALK specified, presence r esults PHOS) of nausea not section. specified, unspecified vomiting type TROPONIN I STAT Add-On 01/03/2020 1:44 Vomiting, Results for PM CDT intractability of this proce dure vomiting not are in the specified, presence results of nausea not section. specified, unspecified vomiting type Hypokalemia MAGNESIUM STAT Add-On 01/03/2020 1:44 Vomiting, Results for PM CDT intractability of this proce dure vomiting not are in the specified, presence results of nausea not section. specified, unspecified vomiting type Hypokalemia LIPASE STAT 01/03/2020 1:44 Vomiting, Results for PM CDT intractability of this proce dure vomiting not are in the specified, presence results of nausea not section. specified, unspecified vomiting type PHOSPHORUS STAT Add-On 01/03/2020 1:44 Results for PM CDT this procedure are in the results section. EMERGENCY DEPARTMENT Routine 01/03/2020 12:01 DOCUMENTS AM CDT EMERGENCY DEPARTMENT Routine 01/03/2020 12:01 DOCUMENTS AM CDT documented in this encounter Results POCT GLUCOSE (AUTOMATED) (01/05/2020 12:03 PM CDT) Pathologist Sig nature POCT GLU 246 (H) 70 - 110 mg/dL [facility] Specimen Blood Performing Organization Address [facility] Phone Number [facility] CLIA: [id number] [place] [address] POCT GLUCOSE (AUTOMATED) (01/05/2020 9:12 AM CDT) Pathologist Sig nature POCT GLU 208 (H) 70 - 110 mg/dL [facility] Specimen Blood Performing Organization Address [facility] Phone Number [facility] CLIA: [id number] [place] [address] POCT GLUCOSE (AUTOMATED) (01/05/2020 7:55 AM CDT) Pathologist Sig nature POCT GLU 133 (H) 70 - 110 mg/dL [facility] Specimen Blood Performing Organization Address [facility] Phone Number [facility] CLIA: [id number] [place] [address] TROPONIN I (01/05/2020 3:26 AM CDT) Pathologist Sig [facility] TROPONIN I 0.589 (H) <=0.034 ng/mL [facility] Specimen Blood - ARM, LEFT Narrative Performed At Equal or Less than 0.034 ng/ml---Normal [facility] Note: Cardiac troponin begins to rise 3-4 hours after the onset of ischemia. Repeat in 4-6 hours if the sample was drawn within 3-4 hours of the onset of the symptom and found normal. Between 0.035 and 0.120 ng/mL--- Borderline. Questionable myocardial injury or necros is Note: Serial measurement may be necessary to confirm or exclude the diagnosis of myocardial injury or necrosis; Clinical correlation (symptoms, EKGs, imaging studies, and others) required; Repeat in 4-6 hours if clinically indicated. Equal or Higher than 0.121 ng/mL---Abnormal. Myocardial Injury or Necrosis Likely Biotin has been reported to cause a negative bias, interpret results relative to patient's use of biotin. Performing Organization Address City/[facility] Phone Number [facility] CLIA: [id number] [place] [address] [place] [address] Drive FERRITIN SERUM (01/05/2020 3:26 AM CDT) [facility] FERRITIN 28.1 18.0 - 464.0 ng/mL [facility] Specimen Blood - ARM, LEFT Narrative Performed At Biotin has been reported to cause a negative [facility] bias, interpret results relative to patient's use of biotin. Performing Organization Address City/State/[facility] Phone Number [facility] CLIA: [id number] [place] [address] aPTT (01/05/2020 3:26 AM CDT) Pathologist Sig [facility] APTT Patient 43 (H) 23 - 38 Seconds [facility] Specimen Blood - ARM, LEFT Narrative Performed At The [facility] patient population mean normal value [facility] for aPTT is 30 seconds. Performing Organization Address City/[facility] Phone Number [facility] CLIA: [id number] [place] [address] CBC WITH DIFF (01/05/2020 3:26 AM CDT) WBC 8.87 4.20 - 10.70 [facility] 10*3/L [facility] RBC 4.64 4.26 - 5.52 [facility] 10*6/L [facility] HGB 9.5 (L) 12.2 - 16.4 [facility] g/dL [facility] HCT 32.3 (L) 38.4 - 49.3 % [facility] MCV 69.6 (L) 81.7 - 95.6 [facility] LABORATORY MCH 20.5 (L) 26.1 - 32.7 [facility] pg [facility] MCHC 29.4 (L) 31.2 - 35.0 [facility] g/dL [facility] RDW-SD 48.9 38.5 - 51.6 [facility] LABORATORY RDW-CV 20.0 (H) 12.1 - 15.4 % [facility] PLT 235 150 - 328 [facility] 10*3/L [facility] LAB[facility]ATORY MPV Comment: Not [facility] LABORATORY IPF % 6.8Comment: Platelet 1.2 - 10.7 % [facility] count measured by HOSPITAL fluorescence method. LABORATORY NRBC/100 WBC 0.0 0.0 - 10.0 [facility] /100 WBCs [facility] NRBC x10^3 <0.01 10*3/L [facility] GRAN MAT (NEUT) % 80.4 % [facility] IMM GRAN % 0.60 % [facility] LYMPH % 8.5 % [facility] MONO % 8.7 % [facility] EOS % 1.5 % [facility] BASO % 0.3 % [facility] GRAN MAT 7.14 (H) 1.99 - 6.95 [facility] x10^3(ANC) 10*3/uL [facility] LAB[facility] IMM GRAN x10^3 0.05 0.00 - 0.06 [facility] 10*3/uL HOSPITAL LABORATORY LYMPH x10^3 0.75 (L) 1.09 - 3.23 [facility] 10*3/uL [facility] MONO x10^3 0.77 0.36 - 1.02 [facility] 10*3/uL [facility] EOS x10^3 0.13 0.06 - 0.53 [facility] 10*3/uL [facility] BASO x10^3 0.03 0.01 - 0.09 [facility] 10*3/uL [facility] Specimen Blood - ARM, LEFT Performing Organization Address City/State/Zipcode Phone Number [facility] CLIA: [id number] [place] [address] BASIC METABOLIC PANEL (NA, K, CL, CO2, GLUCOSE, BUN, CREATININE, CA) (01/05/2020 3:26 AM CDT) NA 134 (L) 135 - 145 [facility] mmol/L [facility] K 3.5 3.5 - 5.0 [facility] mmol/L [facility] CL 101 98 - 108 mmol/L [facility] CO2 TOTAL 27 23 - 31 mmol/L [facility] AGAP 6 2 - 16 [facility] BUN 16 7 - 23 mg/dL [facility] GLUCOSE 103 70 - 110 mg/dL [facility] CREATININE 2.26 (H) 0.60 - 1.25 [facility] mg/dL [facility] CALCIUM 8.2 (L) 8.6 - 10.6 [facility] mg/dL [facility] LAB[facility]ORY eGFR Calculation 30.5 mL/min/1.73m2 [facility] (Non-[facility] LABORATORY Tun[place]ian) eGFR Calculation 37.0 mL/min/1.73m2 [facility] () [facility] LAB[facility] Specimen Blood - ARM, LEFT Narrative Performed At Association of Glomerular Filtration Rate (GFR) [facility] LABORATORY and Staging of Kidney Disease* + [...] abnormalities in imaging tests). Performing Organization Address City/[facility] Phone Number [facility] CLIA: [id number] [place] [address] INTACT PTH CALCIUM GROUP (01/05/2020 3:26 AM CDT) CALCIUM 8.2 (L) 8.6 - 10.6 [facility] LAB[facility]ATORY mg/dL SERVICES PTH-INTACT 152.5 (H) 12.0 - 88.0 [facility] LAB[facility]ATORY pg/mL SERVICES PTH-CA Interpretation Comment: Further [facility] LAB[facility] clinical data SERVICES needed for interpretation. Specimen Blood - ARM, LEFT Performing Organization Address [facility] Phone Number [facility] SERVICES CLIA: [id number] [place] [address] [place] [address] POCT GLUCOSE (AUTOMATED) (01/04/2020 4:51 PM CDT) Pathologist Sig nature POCT GLU 84 70 - 110 mg/dL [facility] Specimen Blood Performing Organization Address City/[facility] Phone Number [facility] CLIA: [id number] [place] [address] LABORATORY [address] [facility] aPTT (01/04/2020 1:57 PM CDT) Pathologist Sig nature APTT Patient 68 (H) 23 - 38 Seconds [facility] Specimen Blood - HAND, LEFT Narrative Performed At The [facility] patient population mean normal value [facility] for aPTT is 30 seconds. Performing Organization Address [facility] Phone Number [facility] CLIA: [id number] [place] [address] PROTEIN CREAT RATIO URINE RANDOM (01/04/2020 12:33 PM CDT) Pathologist Sig nature T. PROT U 292 mg/dL [facility] CREAT U 78.6 mg/dL [facility] Protein/Creatinine 3.7 (H) 0.0 - 2.0 [facility] Urine HOSPITAL LABORATORY Specimen Urine - URINE, CLEAN CATCH Narrative Performed At Random Urine Total Protein Reference Ran ges [facility] Random Specimen: Less than 10 mg/dL First Morning Specimen: Less than 20 mg/dL Performing Organization Address [facility] Phone Number [facility] CLIA: [id number] [place] [address] [place] [address] POCT GLUCOSE (AUTOMATED) (01/04/2020 11:46 AM CDT) Pathologist Sig nature POCT GLU 113 (H) 70 - 110 mg/dL [facility] Specimen Blood Performing Organization Address [facility] Phone Number [facility] CLIA: [id number] [place] [address] LABORATORY [facility] US RETROPERITONEAL COMPLETE (01/04/2020 11:04 AM CDT) Specimen Narrative Performed At HISTORY: ROSHNI. PACS/VR/DOSE TECHNIQUE: Both kidneys are evaluated in multiple plan es with the patient in different positions. FINDINGS: Comparison has been made with 05/06/2019 study. RIGHT KIDNEY: Measures 12.1 x 4.3 x 4.5 cm with cortical thickness measuring up to 12 mm. Echogenic cortex noted througho ut. No hydronephrosis or perinephric fluid collection detected . LEFT KIDNEY: Measures 11.7 x 4.5 x 4.3 cm in size with cortical thickness measuring up to 11 mm. No perinephric fluid collecti on. Echogenic cortex noted throughout. Quick look at the urinary bladder showed diffuse thickening of the [place] and mild hypertrophy of the trabecular l ining. CONCLUSIONS: Normal sized kidneys with echogenic sai x, suggesting chronic primary medical renal disease without ob structive hydronephrosis. No significant interval change in sonograph ic findings when compared to April 2019 study. Procedure Note [facility], Radiant Results Inft User - 2019 11:07 AM CDT HISTORY: ROSHNI. TECHNIQUE: Both kidneys are evaluated in multiple planes with the patient in different positions. FINDINGS: Comparison has been made with 05/06/2019 study. RIGHT KIDNEY: Measures 12.1 x 4.3 x 4.5 cm with cortical thickness measuring up to 12 mm. Echogenic cortex noted throughout. No hydronephrosis or perinephric fluid collection detected . LEFT KIDNEY: Measures 11.7 x 4.5 x 4.3 c m in size with cortical thickness measuring up to 11 mm. No perinephric f luid collection. Echogenic cortex noted throughout. Quick look at the urinary bladder showed diffuse thickening of the magaña and mild hypertrophy of the trabecular l ining. CONCLUSIONS: Normal sized kidneys with e chogenic cortex, suggesting chronic primary medical renal disease without ob structive hydronephrosis. No significant interval change in sonograph ic findings when compared to April 2019 study. Performing Organization Address [facility] Phone Number PACS/VR/DOSE POCT GLUCOSE (AUTOMATED) (01/04/2020 7:58 AM CDT) Pathologist [facility] POCT GLU 155 (H) 70 - 110 mg/dL [facility] Specimen Blood Performing Organization Address City/[facility]/Zipcode Phone Number [facility] CLIA: [id number] [place], [place] [address] LABORATORY [address] TROPONIN I (01/04/2020 5:13 AM CDT) Pathologist [facility] [place] TROPONIN I 0.829 (H) <=0.034 ng/mL [facility] Specimen Blood - ARM, LEFT Narrative Performed At Equal or Less than 0.034 ng/ml---Normal [facility] Note: Cardiac troponin begins to rise 3-4 hours after the onset of ischemia. Repeat in 4-6 hours if the sample was drawn within 3-4 hours of the onset of the symptom and found normal. Between 0.035 and 0.120 ng/mL--- Borderline. Questionable myocardial injury or necros is Note: Serial measurement may be necessary to confirm or exclude the diagnosis of myocardial injury or necrosis; Clinical correlation (symptoms, EKGs, imaging studies, and others) required; Repeat in 4-6 hours if clinically indicated. Equal or Higher than 0.121 ng/mL---Abnormal. Myocardial Injury or Necrosis Likely Biotin has been reported to cause a negative bias, interpret results relative to patient's use of biotin. Performing Organization Address City/State/Zipcode Phone Number [facility] CLIA: [id number] [place] [address] aPTT (01/04/2020 5:13 AM CDT) Pathologist Sig nature APTT Patient 36 23 - 38 Seconds [facility] Specimen Blood - ARM, LEFT Narrative Performed At The [facility] patient population mean normal value [facility] for aPTT is 30 seconds. Performing Organization Address City/State/Zipcode Phone Number [facility] CLIA: [id number] [place] [address] MAGNESIUM (01/04/2020 5:13 AM CDT) Pathologist Sig nature MAGNESIUM 2.0 1.7 - 2.4 mg/dL [facility] Specimen Blood - ARM, LEFT Performing Organization Address City/[facility] Phone Number [facility] CLIA: [id number] [place] [address] CBC WITHOUT DIFF (01/04/2020 5:13 AM CDT) WBC 11.03 (H) 4.20 - 10.70 [facility] 10*3/L [facility] LABORATORY RBC 4.97 4.26 - 5.52 [facility] 10*6/L [facility] LABORATORY HGB 10.3 (L) 12.2 - 16.4 [facility] g/dL [facility] LABORATORY HCT 33.7 (L) 38.4 - 49.3 % [facility] MCH 20.7 (L) 26.1 - 32.7 pg [facility] MCV 67.8 (L) 81.7 - 95.6 fL [facility] MCHC 30.6 (L) 31.2 - 35.0 [facility] g/dL [facility] LABORATORY PLT 223 150 - 328 [facility] 10*3/L [facility] LABORATORY MPV Comment: Not Measured [facility] RDW-CV 19.9 (H) 12.1 - 15.4 % [facility] RDW-SD 46.5 38.5 - 51.6 fL [facility] NRBC x10^3 <0.01 10*3/L [facility] NRBC/100 WBC 0.0 0.0 - 10.0 [facility] /100 WBCs [facility] LABORATORY IPF % 8.2Comment: Platelet 1.2 - 10.7 % [facility] count measured by HOSPITAL fluorescence method. LABORATORY Specimen Blood - ARM, LEFT Performing Organization Address City/State/Zipcode Phone Number [facility] CLIA: [id number] [place] [address] COMP. METABOLIC PANEL ([id number]) (01/04/2020 5:13 AM CDT) NA 133 (L) 135 - 145 [facility] mmol/L [facility] LAB[facility]ATORY K 3.7 3.5 - 5.0 [facility] mmol/L [facility] LAB[facility]ORY CL 99 98 - 108 mmol/L [facility] CO2 TOTAL 27 23 - 31 mmol/L [facility] AGAP 7 2 - 16 [facility] BUN 18 7 - 23 mg/dL [facility] GLUCOSE 140 (H) 70 - 110 mg/dL [facility] CREATININE 2.27 (H) 0.60 - 1.25 [facility] mg/dL [facility] TOTAL BILI 0.3 0.1 - 1.1 mg/dL [facility] CALCIUM 8.3 (L) 8.6 - 10.6 [facility] mg/dL [facility] T PROTEIN 6.2 (L) 6.3 - 8.2 g/dL THE [facility] ALBUMIN 3.1 (L) 3.5 - 5.0 g/dL [facility] ALK PHOS 117 34 - 122 U/L [facility] ALTv 13 5 - 50 U/L [facility] AST(SGOT) 29 13 - 40 U/L [facility] eGFR Calculation 30.3 mL/min/1.73m2 [facility] (Non-[facility] LABORATORY Tun[place]ian) eGFR Calculation 36.8 mL/min/1.73m2 [facility] () [facility] Specimen Blood - ARM, LEFT Narrative Performed At Association of Glomerular Filtration Rate (GFR) [facility] and Staging of Kidney Disease* [...] abnormalities in imaging tests). Performing Organization Address [facility] Phone Number [facility] [id number] [place] [address] POCT GLUCOSE (AUTOMATED) (01/04/2020 3:53 AM CDT) [facility] POCT GLU 88 70 - 110 mg/dL [facility] Specimen Blood Performing Organization Address [facility] Phone Number [facility] CLIA: [id number] [place] [address] aPTT (01/03/2020 9:45 PM CDT) [facility] nature APTT Patient 35 23 - 38 Seconds [facility] Specimen Blood - ARM, LEFT Narrative Performed At The [facility] patient population mean normal value [facility] for aPTT is 30 seconds. Performing Organization Address [facility] [employer] Phone Number [facility] CLIA: [id number] [place] [address] TROPONIN I (01/03/2020 9:45 PM CDT) [facility] [place] TROPONIN I 1.040 (H) <=0.034 ng/mL [facility] Specimen Blood - ARM, LEFT Narrative Performed At Equal or Less than 0.034 ng/ml---Normal [facility] Note: Cardiac troponin begins to rise 3-4 hours after the onset of ischemia. Repeat in 4-6 hours if the sample was drawn within 3-4 hours of the onset of the symptom and found normal. Between 0.035 and 0.120 ng/mL--- Borderline. Questionable myocardial injury or necros is Note: Serial measurement may be necessary to confirm or exclude the diagnosis of myocardial injury or necrosis; Clinical correlation (symptoms, EKGs, imaging studies, and others) required; Repeat in 4-6 hours if clinically indicated. Equal or Higher than 0.121 ng/mL---Abnormal. Myocardial Injury or Necrosis Likely Biotin has been reported to cause a negative bias, interpret results relative to patient's use of biotin. Performing Organization Address [facility] Phone Number [facility] CLIA: [id number] [place] [address] [address] POCT GLUCOSE (AUTOMATED) (01/03/2020 9:44 PM CDT) Pathologist Sig nature POCT GLU 194 (H) 70 - 110 mg/dL [facility] Specimen Blood Performing Organization Address [facility] Phone Number [facility] CLIA: [id number] [place] [address] [place] [address] POCT GLUCOSE (AUTOMATED) (01/03/2020 4:58 PM CDT) Pathologist Sig nature POCT GLU 99 70 - 110 mg/dL [facility] Specimen Blood Performing Organization Address [facility] Phone Number [facility] CLIA: [id number] [place] [address] BASIC METABOLIC PANEL (NA, K, CL, CO2, GLUCOSE, BUN, CREATININE, CA) (01/03/2020 4:56 PM CDT) NA 130 (L) 135 - 145 [facility] mmol/L [facility] K 3.3 (L) 3.5 - 5.0 [facility] mmol/L [facility] CL 94 (L) 98 - 108 mmol/L [facility] CO2 TOTAL 23 23 - 31 mmol/L [facility] AGAP 13 2 - 16 [facility] BUN 21 7 - 23 mg/dL [facility] GLUCOSE 94 70 - 110 mg/dL [facility] CREATININE 2.36 (H) 0.60 - 1.25 [facility] mg/dL [facility] CALCIUM 8.4 (L) 8.6 - 10.6 [facility] mg/dL [facility] eGFR Calculation 29.0 mL/min/1.73m2 [facility] ([facility] LABORATORY [place]ian) eGFR Calculation 35.2 mL/min/1.73m2 [facility] () [facility] Specimen Blood - VENOUS Narrative Performed At Association of Glomerular Filtration Rate (GFR) [facility]ATORY and Staging of Kidney Disease* + [...] abnormalities in imaging tests). Performing Organization Address City/State/[facility] Phone Number [facility] CLIA: [id number] [place] [address] N-TERMINAL PRO-BNP (01/03/2020 4:56 PM CDT) [facility] Sig nature NT-proBNP 2,950 (H) <=125 pg/mL [facility] Specimen Blood - VENOUS Narrative Performed At [facility] has been reported to cause a negative [facility] bias, interpret results relative to patient's use of biotin. Performing Organization Address City/State/[facility] Phone Number [facility] CLIA: [id number] [place] [address] [address] LIPID PANEL (06090)(TOTAL CHOLESTEROL, TRIGLYCERIDES, HDL) (01/03/2020 4:56 PM CDT) Pathologist Sig nature CHOL 117 (L) 120 - 200 mg/dL [facility] HDL 36 (L) >40 mg/dL [facility] HDLC RATIO 3.3 <=5.0 [facility] TRIG 103 30 - 170 mg/dL [facility] LDL CHOL 60 <=160 mg/dL [facility] VLDL 21 5 - 60 mg/dL [facility] Specimen Blood - VENOUS Performing Organization Address [facility] Phone Number [facility] CLIA: [id number] [place] [address] LABORATORY [address] [facility] TROPONIN I (01/03/2020 4:56 PM CDT) Pathologist Sig nature TROPONIN I 1.330 (H) <=0.034 ng/mL [facility] Specimen Blood - VENOUS Narrative Performed At Equal or Less than 0.034 ng/ml---Normal [facility] Note: Cardiac troponin begins to rise 3-4 hours after the onset of ischemia. Repeat in 4-6 hours if the sample was drawn within 3-4 hours of the onset of the symptom and found normal. Between 0.035 and 0.120 ng/mL--- Borderline. Questionable myocardial injury or necros is Note: Serial measurement may be necessary to confirm or exclude the diagnosis of myocardial injury or necrosis; Clinical correlation (symptoms, EKGs, imaging studies, and others) required; Repeat in 4-6 hours if clinically indicated. Equal or Higher than 0.121 ng/mL---Abnormal. Myocardial Injury or Necrosis Likely Biotin has been reported to cause a negative bias, interpret results relative to patient's use of biotin. Performing Organization Address [facility] Phone Number [facility] CLIA: [id number] [place] [address] Critical Care (01/03/2020 4:35 PM CDT) Narrative Performed At Alberto Peralta MD 01/03/2020 4: 35 PM Critical Care Performed by: Alberto Peralta MD Authorized by: Alberto Peralta MD Critical care provider statement: Critical care time (minutes): 60 Critical care was necessary to treat or prevent imminent or life-threatening deterioration of the fo llowing conditions: Cardiac failure Critical care was time spent personal ly by me on the following activities: Ordering and performing tr eatments and interventions, ordering and review of laboratory studie s, ordering and review of radiographic studies, pulse oximetry, re -evaluation of patient's condition, review of old charts, evaluat ion of patient's response to treatment, discussions with primary prov ider, discussions with consultants, development of treatment pl an with patient or surrogate, blood draw for specimens and examination of patient CT ABDOMEN PELVIS WO CONTRAST (01/03/2020 3:35 PM CDT) Specimen Impressions Performed At Impression: PACS/VR/DOSE Trace free pelvic fluid. This is nonspec ific in a male patient and could reflect inflammation. Severe diverticulosis without diverticul itis. Borderline enlargement of the spleen nila suring 13 cm in length. Multilevel spinal degenerative disc disease and spondy losis. Of note, there is a large left paracentral and subartic ular disc protrusion at L4/5. RL: 6200 3:5 2 PM Narrative Performed At History: Nausea, vomiting . PACS/VR/DOSE Exam: CT ABDOMEN PELVIS WO CONTRAST Date: 01/03/2020 3:00 PM Ordering provider: ALBERTO PERALTA Technique: Axial CT scanning of the abdomen and pelvis is performed without contrast. Radiation dose reduction perfo rmed using ALARA principles. Comparison: None available. Findings: The spleen is borderline enlarged measur ing 13 cm in length. Liver, pancreas, gallbladder, adrenal glands, and kidneys are unremarkable on this noncontrast exam. No evidence of biliary ductal dilata tion, renal stone, or hydronephrosis. There is a thin urachal remnant. No ev idence of abdominal aortic aneurysm. There is trace free pelvic fluid, whi ch is nonspecific. There is severe diverticulosis in the si gmoid colon and descending colon without evidence of diverticulitis. Ther e is large fecal material in the ascending colon and transverse colon. The appendix is normal. No evidence of bowel obstruction, perforation, or ab scess. The prostate gland is moderately enlarged. There is multilevel degenerative disc di sease and spondylosis with disc bulges/protrusions. Of note, there is an 11 x 6 mm (tr ansverse by AP) left paracentral and subarticular disc protru mahi at L4/5 with severe canal stenosis and effacement of the left late ral recess. Procedure Note [facility], Radiant Results Inft User - 2019 3:53 PM CDT History: Nausea, vomiting . Exam: CT ABDOMEN PELVIS WO CONTRAST Date: 01/03/2020 3:00 PM Ordering provider: ALBERTO PERALTA Technique: Axial CT scanning of the abdo men and pelvis is performed without contrast. Radiation dose reduction perfo rmed using ALARA principles. Comparison: None available. Findings: The spleen is borderline enlarged measur ing 13 cm in length. Liver, pancreas, gallbladder, adrenal glands, a nd kidneys are unremarkable on this noncontrast exam. No evidence of biliary ductal dilatation, renal stone, or hydronephrosis. There is a thin urachal remnant. No evidence of abdominal aortic aneurysm. There is trace free pel jamal fluid, which is nonspecific. There is severe diverticulosis in the si gmoid colon and descending colon without evidence of diverticulitis. Ther e is large fecal material in the ascending colon and transverse colon. Th e appendix is normal. No evidence of bowel obstruction, perforation, or ab scess. The prostate gland is moderately enlarged. There is multilevel degenerative disc di sease and spondylosis with disc bulges/protrusions. Of note, there is an 11 x 6 mm (transverse by AP) left paracentral and subarticular disc protru mahi at L4/5 with severe canal stenosis and effacement of the left late ral recess. IMPRESSION Impression: Trace free pelvic fluid. This is nonspec ific in a male patient and could reflect inflammation. Severe diverticulosis without diverticul itis. Borderline enlargement of the spleen nila suring 13 cm in length. Multilevel spinal degenerative disc dise ase and spondylosis. Of note, there is a large left paracentral and subartic ular disc protrusion at L4/5. RL: 6200 Performing Organization Address City/State/Zipcode Phone Number PACS/VR/DOSE COVID-19 ([facility] NOW RAPID TESTING) (01/03/2020 3:35 PM CDT) SARS-CoV-2 Rapid ID Not Detected Not Detected [facility] Specimen Swab - NASOPHARYNGEAL SWAB Narrative Performed At [place] [facility] COVID-19 Assay is an isothermal nucleic [facility] acid amplification test intended for the qualitative detection of nucleic acid from SARS-CoV-2 viral RNA in nasopharyngeal (PRODUCT SAFETY ADMINISTRATOR) specimens. It is used under Emergency Use [...] testing if clinically indicated. Performing Organization Address City/[facility]/Zipcode Phone Number [facility] CLIA: [id number] [place] [address] POCT GLUCOSE (AUTOMATED) (01/03/2020 2:00 PM CDT) Pathologist [facility] POCT GLU 120 (H) 70 - 110 mg/dL [facility] Specimen Blood Performing Organization Address [facility]/Zipcode Phone Number [facility] CLIA: [id number] [place] [address] [place] [address] AC PANEL 21 + LACTIC ACID (01/03/2020 2:00 PM CDT) [facility] [place] PH 7.42 7.32 - 7.42 [facility] PCO2 MATEUSZ 41 41 - 51 mmHg [facility] PO2 MATEUSZ 35 25 - 40 mmHg [facility] HCO3 MATEUSZ 26 24 - 28 mEq/L [facility] AC VBE(BEAKER) 1.6 mEq/L [facility] THB MATEUSZ 11.9 (L) 13.5 - 18.0 g/dL [facility] %O2HB MATEUSZ 65.6 (H) 52.0 - 63.0 % [facility] %COHB MATEUSZ 1.4 0.0 - 1.5 % [facility] %METHB MATEUSZ 0.3 (L) 0.4 - 1.5 % [facility] VOL%O2 MATEUSZ 11.0 6.0 - 12.0 % [facility] NA 130 (L) 135 - 145 mmol/L [facility] K+ 2.8 (LL) 3.5 - 5.0 mmol/L [facility] AC CA IONZ 3.90 (L) 4.50 - 5.30 mg/dL [facility] GLUCOSE 115 (H) 70 - 110 mg/dL [facility] LACTIC ACID 1.99 mmol/L [facility] Specimen Blood - VENOUS Performing Organization Address [facility] Phone Number [facility] CLIA: [id number] [place], [place] [address] LABORATORY [address] GLYCOSYLATED HEMOGLOBIN (A1C) (01/03/2020 1:44 PM CDT) Pathologist Sig nature HGB A1C 11.4 (H) 4.0 - 6.0 % [facility] Specimen Blood - VENOUS Narrative Performed At %A1C (NGSP) Interpretation (ADA) [facility] 4.8-5.6 Normal or (Non-Diabetic Ra nge) 5.7-6.4 Increased Risk (Pre-Diabet ic) >6.5 Diabetes Indicated Performing Organization Address [facility] Phone Number [facility] CLIA: [id number] [place] [address] PHOSPHORUS (01/03/2020 1:44 PM CDT) Pathologist Sig nature PHOSPHORUS 3.7 2.5 - 5.0 mg/dL [facility] Specimen Blood - VENOUS Performing Organization Address [facility] Phone Number [facility] CLIA: [id number] [place] [address] MAGNESIUM (01/03/2020 1:44 PM CDT) Pathologist Sig nature MAGNESIUM 1.6 (L) 1.7 - 2.4 mg/dL [facility] Specimen Blood - VENOUS Performing Organization Address City/[facility]/Zipcode Phone Number [facility] CLIA: [id number] [place] [address] TROPONIN I (01/03/2020 1:44 PM CDT) Pathologist Sig [facility] TROPONIN I 1.530 (H) <=0.034 ng/mL [facility] Specimen Blood - VENOUS Narrative Performed At Equal or Less than 0.034 ng/ml---Normal [facility] Note: Cardiac troponin begins to rise 3-4 hours after the onset of ischemia. Repeat in 4-6 hours if the sample was drawn within 3-4 hours of the onset of the symptom and found normal. Between 0.035 and 0.120 ng/mL--- Borderline. Questionable myocardial injury or necros is Note: Serial measurement may be necessary to confirm or exclude the diagnosis of myocardial injury or necrosis; Clinical correlation (symptoms, EKGs, imaging studies, and others) required; Repeat in 4-6 hours if clinically indicated. Equal or Higher than 0.121 ng/mL---Abnormal. Myocardial Injury or Necrosis Likely Biotin has been reported to cause a negative bias, interpret results relative to patient's use of biotin. Performing Organization Address [facility] Phone Number [facility] CLIA: [id number] [place] [address] Prothrombin Time (PT) / INR (01/03/2020 1:44 PM CDT) PROTIME PATIENT 13.6 12.0 - 14.7 [facility] LABORATORY INR 1.1Comment: Normal [facility] INR <1.1; Warfarin [facility] Therapeutic range LABORATORY 2.0 to 3.0 or 2.5 to 3.5, depending upon the indications. Specimen Blood - VENOUS Performing Organization Address [facility] Cent[facility] Phone Number [facility] CLIA: [id number] [place] [address] aPTT (01/03/2020 1:44 PM CDT) Pathologist Sig nature APTT Patient 28 23 - 38 Seconds [facility] Specimen Blood - VENOUS Narrative Performed At The [facility] patient population mean normal value [facility] for aPTT is 30 seconds. Performing Organization Address [facility] Phone Number [facility] CLIA: [id number] [place] [address] LABORATORY [address] [facility] Lipase Serum (01/03/2020 1:44 PM CDT) Pathologist Sig nature LIPASE 29 0 - 220 U/L [facility] Specimen Blood - VENOUS Performing Organization Address [facility] Phone Number [facility] CLIA: [id number] [place] [address] LABORATORY [address] [facility] Hepatic Function Panel (ALB, T.PRO, BILI T, BU/BC, ALT, AST, ALK PHOS) (01/03/2020 1:44 PM CDT) Pathologist Sig nature TOTAL BILI 0.5 0.1 - 1.1 mg/dL [facility] BILI UNCON 0.5 0.1 - 1.1 mg/dL [facility] BILI CONJ 0.0 0.0 - 0.3 mg/dL [facility] T PROTEIN 7.4 6.3 - 8.2 g/dL [facility] ALBUMIN 3.8 3.5 - 5.0 g/dL [facility] ALK PHOS 131 (H) 34 - 122 U/L [facility] ALTv 17 5 - 50 U/L [facility] AST(SGOT) 36 13 - 40 U/L [facility] Specimen Blood - VENOUS Performing Organization Address [facility] Phone Number [facility] CLIA: [id number] [place] [address] LABORATORY [address] [facility] Basic Metabolic Panel (NA, K, CL, CO2, GLUCOSE, BUN, CREATININE, CA) (01/03/2020 1:44 PM CDT) NA 130 (L) 135 - 145 [facility] mmol/L [facility] K 2.5 (LL) 3.5 - 5.0 [facility] mmol/L [facility] CL 90 (L) 98 - 108 mmol/L [facility] CO2 TOTAL 26 23 - 31 mmol/L [facility] AGAP 14 2 - 16 [facility] BUN 24 (H) 7 - 23 mg/dL [facility] GLUCOSE 123 (H) 70 - 110 mg/dL [facility] CREATININE 2.70 (H) 0.60 - 1.25 [facility] mg/dL [facility] CALCIUM 8.7 8.6 - 10.6 [facility] mg/dL [facility] LAB[facility] eGFR Calculation 24.8 mL/min/1.73m2 [facility] (Non-[facility] LABORATORY [place]ian) eGFR Calculation 30.1 mL/min/1.73m2 [facility] () [facility] Specimen Blood - VENOUS Narrative Performed At Association of Glomerular Filtration Rate (GFR) [facility] LAB[facility]ATORY and Staging of Kidney Disease* + [...] tests). Performing Organization Address City/State/Zipcode Phone Number [facility] CLIA: [id number] [place] [address] CBC with Differential (01/03/2020 1:44 PM CDT) WBC 15.47 (H) 4.20 - 10.70 [facility] 10*3/L [facility] RBC 5.55 (H) 4.26 - 5.52 [facility] 10*6/L [facility] LAB[facility] HGB 11.4 (L) 12.2 - 16.4 [facility] g/dL [facility] LAB[facility] HCT 37.7 (L) 38.4 - 49.3 % [facility] MCV 67.9 (L) 81.7 - 95.6 [facility] LABORATORY MCH 20.5 (L) 26.1 - 32.7 [facility] pg [facility] LABORATORY MCHC 30.2 (L) 31.2 - 35.0 [facility] g/dL [facility] LABOR[facility]ORY RDW-SD 46.2 38.5 - 51.6 [facility] LABORATORY RDW-CV 20.1 (H) 12.1 - 15.4 % [facility] PLT 233 150 - 328 [facility] 10*3/L [facility] LABORATORY MPV Comment: Not [facility] LABORATORY IPF % 7.6Comment: Platelet 1.2 - 10.7 % [facility] count measured by HOSPITAL fluorescence method. LABORATORY NRBC/100 WBC 0.0 0.0 - 10.0 [facility] /100 WBCs [facility] LABORATORY NRBC x10^3 <0.01 10*3/L [facility] GRAN MAT (NEUT) % 84.4 % [facility] IMM GRAN % 0.60 % [facility] LYMPH % 5.4 % [facility] MONO % 8.7 % [facility] EOS % 0.6 % [facility] BASO % 0.3 % [facility] GRAN MAT 13.07 (H) 1.99 - 6.95 [facility] x10^3(ANC) 10*3/uL [facility] LAB[facility] IMM GRAN x10^3 0.09 (H) 0.00 - 0.06 [facility] 10*3/uL [facility] LYMPH x10^3 0.83 (L) 1.09 - 3.23 [facility] 10*3/uL [facility] LAB[facility] MONO x10^3 1.34 (H) 0.36 - 1.02 [facility] 10*3/uL [facility]ITAL LAB[facility] EOS x10^3 0.09 0.06 - 0.53 [facility] 10*3/uL [facility] LAB[facility] BASO x10^3 0.05 0.01 - 0.09 [facility] 10*3/uL [facility] Specimen Blood - VENOUS Performing Organization Address City/State/Zipcode Phone Number [facility] CLIA: [id number] [place] [address] documented in this encounter Visit Diagnoses Diagnosis NSTEMI (non-ST elevated myocardial infar ction) - Primary Acute myocardial infarction, subendocard ial infarction, episode of care unspecified Vomiting, intractability of vomiting not specified, presence of nausea not specified, unspecified vomiting type Hypokalemia Hypopotassemia Chronic kidney disease, unspecified CKD stage Hypomagnesemia Disorders of magnesium metabolism Leukocytosis, unspecified type Stage 4 chronic kidney disease Coronary artery disease involving [place] coronary artery of [place] heart without angina pectoris Dyslipidemia Other and unspecified hyperlipidemia Essential hypertension Unspecified essential hypertension Obesity (BMI 30-39.9) Obesity, unspecified Type 1 diabetes mellitus with complicati on Type I (juvenile type) diabetes mellitus with unspecified complication, not stated as uncontrolled documented in this encounter Administered Medications Medication Order MAR Action Action Date Dose Rate Site aspirin chewable tablet 81 mg Given 01/05/2020 8:18 AM CDT 81 mg 81 mg, Oral, DAILY, First dose (after last modification) on Fri01/04/20 at 0900, Until Discontinued, Routine Given 01/04/2020 8:00 AM CDT 81 mg clopidogreL (PLAVIX) tablet 75 mg Given 01/05/2020 8:18 AM CDT 75 mg 75 mg, Oral, DAILY, First dose on Fri01/04/20 at 0900, Until Discontinued, Routine Given 01/04/2020 8:00 AM CDT 75 mg dextrose 50 % in water ([id number]) injection 25 mL 25 mL, Slow IV Push, PRN, Starting Fri at 0026, Until Discontinued, MARIBEL, Blood Glucose < or = 70 mg/dL and patien t is unable to swallow or has mental status changes. DULoxetine (CYMBALTA) capsule 30 mg Given 01/05/2020 10:05 AM CDT 30 mg 30 mg, Oral, DAILY, First dose on Fri01/05/20 at 0945, Until Discontinued, Routine glucagon (GLUCAGEN DIAGNOSTIC KIT) injec tion 1 mg 1 mg, Intramuscular, PRN, Starting e at 0026, Until Discontinued, MARIBEL, Blood Glucose < or = 70 mg/dL and patient is unable to swallow or has mental changes. heparin (1,000 unit/mL, 10 mL vial) for Given 01/04/20 7:28 AM CDT 3,000 Units Rebolusing FOR REBOLUSING, Starting 01/03/20 at 1554, Until Discontinued, Routine, Dosing based on aPTT testing parameters (refer to continuous heparin drip order)., Given 01/03/2020 10:55 PM CDT 3,000 Units heparin 25,000 Units/250 mL New Bag 01/05/2020 12:33 PM 1,250 Units/hr 12.5 mL/hr (Premixed Bag) in 0.45 % NS CDT 1,000 Units/hr (10 mL/hr), IV Infusion, TITRATE, Parameters in Admin. Instr., Starting Fri01/03/20 at 1743, CAUTION - If LMWH given in ER, AVOID bolus and start next dose/drip 12 hrs after ER dosage. Must program rate using programmable infusion pump. Check with the ordering provider first prior to any administration should the patient be on existing/additional anticoagulant therapy. Range, Dosing and Testing - aPTT < 40: Bolus 3000 units, increase rate 100 units/hr. - aPTT 40-49: Increase rate 50 units/hr. - aPTT 50-70: NO CHANGE. - aPTT 71-85: Decrease rate 50 units/hr. - aPTT 86-100: Hold 30 minutes, decrease rate 100 units/hr. - aPTT 101-150: Hold 60 minutes, decrease rate 150 units/hr. - aPTT > 150: Hold 60 minutes, decrease rate 300 units/hr. Check aPTT 6 hours after initiation, then Q6H after every change, aPTT Q12H once therapeutic levels are reached. DO NOT ADJUST INITIAL BOLUS OR INITIAL INFUSION RATE., Rate Change 01/05/2020 5:40 AM CDT 1,250 Units/hr 12.5 mL/hr New Bag 01/04/2020 7:28 AM CDT 1,200 Units/hr 12 mL/hr hydralAZINE (APRESOLINE) injection 10 mg Given 01/05/2020 5:39 AM CDT 10 mg 10 mg, Slow IV Push, Q6HPRN, Starting Fri01/03/20 at 2026, Until Discontinued, Routine, DBP=>100; SBP=>180, Indication: Hypertensive Emergency Given 01/04/2020 6:37 AM CDT 10 mg insulin detemir U-100 Given 01/05/2020 12:05 PM CDT 30 Units Left Upper Arm-SC (LEVEMIR U-100 INSULIN) injection 30 Units 30 Units, Subcutaneous, BID, First dose on Fri01/03/20 at 2130, Until Discontinued Given 01/04/2020 7:51 PM CDT 30 Units Righ t Upper Arm-SC Given 01/04/2020 8:00 AM CDT 30 Units Righ t Arm losartan (COZAAR) tablet 100 mg 100 mg, Oral, DAILY, First dose (after l ast modification) on Fri01/06/20 at 0900, Until Discontinued, Routine metoclopramide HCl (REGLAN) tablet 10 mg Given 01/05/2020 12:17 PM CDT 10 mg 10 mg, Oral, Q6H, First dose on Fri01/04/20 at 0000, Until Discontinued, Routine Given 01/05/2020 5:40 AM CDT 10 mg Given 01/04/2020 5:55 PM CDT 10 mg metoprolol tartrate (LOPRESSOR) tablet 2 5 mg Given 01/05/2020 8:18 AM CDT 25 mg 25 mg, Oral, BID, First dose (after last modification) on Fri01/04/20 at 2000, Until Discontinued, Routine Given 01/04/2020 7:57 PM CDT 25 mg ondansetron (ZOFRAN (PF)) injection 4 mg Given 01/05/2020 10:27 AM CDT 4 mg 4 mg, Slow IV Push, Q6HPRN, Starting Fri01/05/20 at 0958, Until Discontinued, Routine, Nausea and Vomiting (N/V) rosuvastatin (CRESTOR) tablet 20 mg Given 01/04/2020 7:58 PM CDT 20 mg 20 mg, Oral, QHS, First dose on Fri01/04/20 at 2100, Until Discontinued, Routine Sliding Scale Insulin-Regular + Given 01/05/2020 12:05 PM 3 Unit s Left Upper Fsbg Testing CDT Arm-SC Subcutaneous, AC+HS, First dose on 9/29/20 at 0730, Until Discontinued, Routine Given 01/04/2020 7:53 PM CDT 1 Units Righ t Upper Arm-SC Medication Order MAR Action Action Date Dose Rate Site flu vaccine 6 months and Given 01/05/2020 4:32 PM 0.5 mL Right Deltoid-IM up (PF) (FLUZONE QUAD CDT (PF)) syringe 0.5 mL 0.5 mL, Intramuscular, ONCE, 1 dose, Fri01/05/20 at 1615, Routine heparin 1000 unit/mL injection Soln Given 01/03/2020 4:20 PM CD T 4,000 Units 4,000 Units 4,000 Units, IV Push, ONCE, 1 dose, 01/03/20 at 1600, MARIBEL heparin 25,000 Units/250 mL New Bag 01/03/2020 4:22 PM 1,000 Unit s/hr 10 mL/hr (Premixed Bag) in 0.45 % NS CDT 1,000 Units/hr (10 mL/hr), IV Infusion, TITRATE, Parameters in Admin. Instr., Starting Fri01/03/20 at 1621, CAUTION - If LMWH given in ER, AVOID bolus and start next dose/drip 12 hrs after ER dosage. Must program rate using programmable infusion pump. Check with the ordering provider first prior to any administration should the patient be on existing/additional anticoagulant therapy. Range, Dosing and Testing - aPTT < 40: Bolus 3000 units, increase rate 100 units/hr. - aPTT 40-49: Increase rate 50 units/hr. - aPTT 50-70: NO CHANGE. - aPTT 71-85: Decrease rate 50 units/hr. - aPTT 86-100: Hold 30 minutes, decrease rate 100 units/hr. - aPTT 101-150: Hold 60 minutes, decrease rate 150 units/hr. - aPTT > 150: Hold 60 minutes, decrease rate 300 units/hr. Check aPTT 6 hours after initiation, then Q6H after every change, aPTT Q12H once therapeutic levels are reached. DO NOT ADJUST INITIAL BOLUS OR INITIAL INFUSION RATE., KCL (KLOR-CON M20) tablet 40 mEq Given 01/05/2020 2:28 PM CDT 40 mEq 40 mEq, Oral, ONCE, 1 dose, Fri01/05/20 at 1330, Routine losartan (COZAAR) tablet 25 mg Given 01/05/2020 8:18 AM CDT 25 mg 25 mg, Oral, DAILY, First dose on Fri01/05/20 at 0900, Until Discontinued, Routine losartan (COZAAR) tablet 50 mg Given 01/05/2020 10:06 AM CDT 50 mg 50 mg, Oral, DAILY, First dose (after last modification) on Fri01/05/20 at 0900, Until Discontinued, Routine magnesium sulfate in water 2 gram/50 mL (4 %) New Bag 6:37 PM CDT 2 g infusion 2 g 2 g, IV Piggyback, ONCE, 1 dose, Fri01/03/20 at 1630, Routine metoprolol tartrate (LOPRESSOR) tablet 12.5 Given 12/07 8:00 AM CDT 12.5 mg mg 12.5 mg, Oral, BID, First dose on Fri01/04/20 at 0800, Until Discontinued, Routine NaCl 0.9% (NS) 1000 mL + KCL 40 mEq New Bag 01/04/2020 5:18 AM CDT 100 mL/hr IV Infusion, at 100 mL/hr, CONTINUOUS, Starting Fri01/03/20 at 1745, Until Fri01/04/20 at 0815, Routine New Bag 01/03/2020 6:36 PM CDT 100 mL/hr NaCl 0.9% (NS) bolus infusion New Bag 01/03/2020 1:48 PM CDT 1,000 mL 999 mL/hr 1,000 mL at 999 mL/hr, 1,000 mL, IV Infusion, ONCE, 1 dose, Fri01/03/20 at 1445, STAT pneumococcal vac polyvalent Given 01/05/2020 4:32 PM CDT 0.5 mL Left Upper Arm-SC (PNEUMOVAX-23) injection 0.5 mL 0.5 mL, Intramuscular, ONCE, 1 dose, Fri01/05/20 at 1615, Routine potassium chloride in water 10 Given 01/03/2020 4:24 PM CDT 10 mEq 100 mL/hr mEq/100 mL RTU 10 mEq 10 mEq, IV Piggyback, Q1H, 2 doses, First dose (after last modification) on Fri01/03/20 at 1500, Last dose on Fri01/03/20 at 1600, 100 mL Given 01/03/2020 3:23 PM CDT 10 mEq 100 mL/hr documented in this encounter Additional Health Concerns Infection Onset Date Last Indicated Resolved Time COVID-19 Rule Out 01/03/2020 01/03/2020 01/03/2020 4: 20 PM CDT documented as of this encounter [phone] [id number] (Work) documented as of this encounter
--- OUTSIDE RECORDS SUMMARY | 2020-02-25 14:37 | XMS REPORT | Summary of Care ---
:1965 Author Organization [facility] - [facility] Address [address] [place] [id number] Care Team Providers Name Role Phone Brandt Primary Care Provider Reason for Visit Reason Comments Transition Of Care Encounter Details Date Type Department Care Team Description 01/06/2020 Transition of Care [facility] Jaymie Max Tr [facility]- RN [address] [address] Allergies Active Allergy Reactions Severity Noted Date Comments Morphine Other - See comments 05/06/2019 "I've b een told it makes me violent" documented as of this encounter (statuses as of 01/06/2020) Medications Medication Sig Dispensed Refills Start Date End Date Status Insulin [place], Use as directed, 360 Each 1 08/09/2016 [...] injectionIndications: Type 1 diabetes mellitus with complication metoclopramide HCl 10 Take 1 tablet by 20 tablet 0 12/16/2019 Active mg tabletIndications: mouth every 6 Vomiting, (six) hours. intractability of vomiting not specified, presence of nausea not specified, unspecified vomiting type, Other specified diabetes mellitus with other specified complication, unspecified whether predatory animal exterminator insulin use DULoxetine 30 mg Take 30 mg by 0 Active capsule mouth daily. aspirin 81 mg chewable Take 1 tablet by 30 tablet 0 01/06/2020 Active tabletIndications: mouth daily. NSTEMI (non-ST elevated myocardial infarction), Coronary artery disease involving [place] coronary artery of [place] heart without angina pectoris losartan 100 mg Take 1 tablet by 30 tablet 0 01/06/2020 Active tabletIndications: mouth daily. NSTEMI (non-ST elevated myocardial infarction), Coronary artery disease involving [place] coronary artery of [place] heart without angina pectoris metoprolol tartrate 25 Take 1 tablet by 60 tablet 0 01/05/2020 Active mg tabletIndications: mouth 2 (two) NSTEMI (non-ST elevated times daily. myocardial infarction), Coronary artery disease involving [place] coronary artery of [place] heart without angina pectoris clopidogreL 75 mg Take 1 tablet by 30 tablet 0 01/05/2020 Active tabletIndications: mouth daily. NSTEMI (non-ST elevated myocardial infarction), Coronary artery disease involving [place] coronary artery of [place] heart without angina pectoris rosuvastatin 20 mg Take 1 tablet by 30 tablet 0 01/05/2020 Active tabletIndications: mouth at bedtime. NSTEMI (non-ST elevated myocardial infarction), Coronary artery disease involving [place] coronary artery of [place] heart without angina pectoris documented as of this encounter (statuses as of 01/06/2020) Active Problems Problem Noted Date NSTEMI (non-ST elevated myocardial infarction) 020 Nausea & vomiting 05/23/2019 Chest pain 05/22/2019 Syncope and collapse 05/06/2019 Coronary artery disease involving [place] coronary anna ry of [place] heart 05/06/2019 without angina pectoris Essential hypertension 05/06/2019 Myocardial infarction type 2 05/06/2019 Stage 4 chronic kidney disease 05/06/2019 Volume overload 02/17/2017 Type 1 diabetes mellitus with complication 07/30/2016 Dyslipidemia 07/30/2016 Obesity (BMI 30-39.9) 04/15/2016 documented as of this encounter (statuses as of 01/06/2020) Immunizations Name Administration Dates Next Due Influenza [...] Signs Not on filedocumented in this encounter Miscellaneous Notes Telephone Encounter - Jaymie Max RN - 01/06/2020 4:45 PM CDTADMIT DATE: 01/03/2020 DISCHARGE DATE: 01/05/2020 DIAGNOSIS: NSTEMI (non-ST elevated myocardial infarction) Care Transition CM attempted to reach patient via telephone x2. No response and voicemail is full. Unable to leave message. Jaymie Max RN, BSN Oxygraph Operator-BALDEV TEAM [phone] Telephone Encounter - Jaymie Max RN - 01/06/2020 12:45 PM CDTCare Transition CM attempted to reach patient via telephone. No response and voicemail is full. Unable to leave message. Jaymie Max RN, BSN Oxygraph Operator-BALDEV TEAM [phone] documented in this encounter Plan of Treatment [...] history exists URINE MICROALBUMIN 11/21/2019 11/20/2018, 11/12/2016 HgA1C 07/02/2020 01/03/2020, 05/06/2019, 11/20/2018, Additional history exists LDL-C 01/02/2021 01/03/2020, 11/20/2018, 11/12/2016 CREATININE (SERUM) 01/04/2021 01/05/2020, 01/04/2020, 01/03/2020, Additional history exists INFLUENZA VACCINE Completed 01/05/2020 PNEUMOCOCCAL 0-64 YEARS Aged Out 01/05/2020 No longe r eligible COMBINED SERIES based on patient 's age to complete this topic documented as of this encounter Results Not on filedocumented in this encounter Insurance Payer Benefit Plan / Group Subscriber ID Effective Dates Phone Address Type AETNA AETNA O [id number] 2011-Present [place] documented as of this encounter
[2020-02-25] MEDS ORDERED: FAMOTIDINE 20 MG/2 ML VIAL IV ONE (14:58)
[2020-02-25] MEDS ORDERED: NA CHLORIDE 0.9% 1,000 ML ONE ×3 (14:58→18:19)
[2020-02-25] MEDS ORDERED: ONDANSETRON 4 MG/2 ML VIAL ONE (14:58)
[2020-02-25 15:20] LABS: Absolute Lymphocytes (CBC) 0.8 K/uL (0.7-4.9); Basophils % 0.7 % (0-1.3); Hematocrit 40.1 % (39.6-49.0); Lymphocytes % 10.2 % (15.3-44.8); MPV 9.4 fL (7.6-11.3); RBC Red Blood Cell Count 5.84 M/uL (4.33-5.43)
[2020-02-25 15:21] LABS: Protime INR 1.04
--- NOTE | 2020-02-25 15:27 | RAD REPORT ---
EXAM DESCRIPTION: RAD - Chest Single View - 02/25/2020 2:54 pm CLINICAL HISTORY: vomiting, hyperglycemia, history of heart attack and heart stent placement COMPARISON: None TECHNIQUE: AP portable chest image was obtained 02/25/2020 2:54 pm . FINDINGS: Lungs are clear. Heart and vasculature are normal. No measurable pleural effusion and no p neumothorax. No acute bony abnormality seen. No acute aortic findings suspected. IMPRESSION: No acute cardiopulmonary process.
[2020-02-25 15:34] LABS: Albumin 3.3 g/dL (3.4-5.0); Bilirubin Direct 0.1 mg/dL (0-0.2); Bilirubin Total 0.4 mg/dL (0.2-1.0); Potassium 3.2 mmol/L (3.5-5.1); Troponin (Emerg Dept Use Only) 0.18 ng/mL (0.0-0.045)
[2020-02-25] MEDS ORDERED: ASPIRIN 81 MG CHEWABLE TABLET ONE (16:00)
--- NOTE | 2020-02-25 16:04 | EDPHYS ---
Physician Documentation [facility] Name: Milton Morris Age: 54 yrs Sex: Male : 1965 Arrival Date: 02/25/2020 Time: 14:34 Bed 18 Private MD: ED Physician Fidencio Vazquez HPI: 02/24 14:40 This 54 yrs old Male presents to ER via EMS with complaints of High Blood cp Sugar. 14:40 The patient or guardian reports hyperglycemia, that was potentially precipitated by cp change in type of insulin. Associated signs and symptoms: Pertinent positives: nausea, vomiting. 14:40 Onset: The symptoms/episode began/occurred 6 month(s) ago, patient c/o difficulty cp controlling blood sugar. Current symptoms: In the emergency department the patient's symptoms have worsened. Historical: - Allergies: 15:20 No Known Allergies; tw2 - Home Meds: 15:20 clopidogrel 75 mg oral tab 1 tab once daily [Active]; Propranolol Oral [Active]; tw2 rosuvastatin oral oral [Active]; Levemir subcutaneous subcutaneous [Active]; Novolog Sub-Q [Active]; - PMHx: 15:20 Diabetes - IDDM; Hyperlipidemia; Heart attack; tw2 - PSHx: 15:20 Cardiac stents x2; tw2 - Immunization history:: Adult Immunizations. - Social history:: Smoking status: . ROS: 14:45 Constitutional: Positive for poor PO intake, Negative for body aches, chills, fever. cp 14:45 Cardiovascular: Negative for chest pain, edema, palpitations. cp 14:45 Respiratory: Negative for cough, shortness of breath, wheezing. 14:45 Abdomen/GI: Positive for Negative for abdominal pain. 14:45 Eyes: Negative for injury, pain, redness, and discharge. cp 14:45 ENT: Negative for ear pain, sore throat, difficulty swallowing, difficulty handling secretions. 14:45 Back: Negative for radiated pain. cp 14:45 : Negative for urinary symptoms. 14:45 Neuro: Negative for altered mental status, dizziness, headache, syncope, weakness. 14:45 All other systems are negative. Exam: 14:50 Constitutional: The patient appears in no acute distress, alert, awake, cp non-diaphoretic, non-toxic, well developed, well nourished. 14:50 Head/Face: Normocephalic, atraumatic. cp 14:50 Eyes: Periorbital structures: appear normal, Conjunctiva: normal, no exudate, no injection, Sclera: no appreciated abnormality, Lids and lashes: appear normal, bilaterally. 14:50 ENT: External ear(s): are unremarkable, Nose: is normal, Mouth: Lips: moist, Oral mucosa: pink and intact, moist, Posterior pharynx: Airway: no evidence of obstruction, patent, Tonsils: are normal in appearance, swelling, is not appreciated, erythema, is not appreciated. 14:50 Neck: ROM/movement: is normal, is supple, without pain, no range of motions limitations, no nuchal rigidity. 14:50 Chest/axilla: Inspection: normal, Palpation: is normal, no crepitus, no tenderness. 14:50 Cardiovascular: Rate: tachycardic, Rhythm: regular, Edema: is not appreciated, JVD: is not appreciated. 14:50 Respiratory: the patient does not display signs of respiratory distress, Respirations: normal, no use of accessory muscles, no retractions, labored breathing, is not present, Breath sounds: are clear throughout, no decreased breath sounds. 14:50 Abdomen/GI: Inspection: abdomen appears normal, Bowel sounds: active, all quadrants, Palpation: abdomen is soft and non-tender, in all quadrants, rebound tenderness, is not appreciated, voluntary guarding, is not appreciated, involuntary guarding, is not appreciated. 14:50 Back: CVA tenderness, is absent. 14:50 Skin: no rash present. 14:50 Neuro: Orientation: to person, place \T\ time. Mentation: is normal, Cerebellar function: is grossly normal, Motor: moves all fours, strength is normal, Sensation: is normal. 15:04 ECG was reviewed by the Attending Physician. cp Vital Signs: 14:37 BP 169 / 86; Pulse 90; Resp 17; Temp 97.8(TE); Pulse Ox 99% on R/A; Weight 81.65 kg tw2 (R); Height 5 ft. 8 in. (172.72 cm) (R); Pain 0/10; 15:17 BP 135 / 79; Pulse 89; Resp 22; Pulse Ox 100% on R/A; tw2 16:15 BP 174 / 92; Pulse 91; Resp 19; Pulse Ox 100% on R/A; tw2 17:10 BP 197 / 102 RA; Pulse 91; Resp 18; tw2 17:11 BP 202 / 105; Pulse 92; Resp 17; Pulse Ox 100% on R/A; tw2 17:42 BP 178 / 97; Pulse 93; Resp 13; Pulse Ox 100% on R/A; tw2 18:45 BP 149 / 91; Pulse 93; Resp 18; Pulse Ox 100% on R/A; tw2 19:45 BP 170 / 88; Pulse 98; Resp 20; Pulse Ox 99% on R/A; jb4 14:37 Body Mass Index 27.37 (81.65 kg, 172.72 cm) tw2 17:11 provider notified of last b/l BP elevation tw2 MDM: 14:35 Patient medically screened. rn 16:00 Physician consultation: Artemio Mcintosh was called at 16:00, was contacted at 16:00, cp regarding admission, to the telemetry unit. patient's condition, will hold Lovenox or Heparin. Patient given aspirin. 16:00 Data reviewed: vital signs, nurses notes, lab test result(s), EKG, radiologic studies, cp plain films, I have discussed the patient's presentation/case with the attending Emergency Department Physician; and as a result, I will admit patient. 16:00 Test interpretation: by ED physician or midlevel provider: ECG. Counseling: I had a cp detailed discussion with the patient and/or guardian regarding: the historical points, exam findings, and any diagnostic results supporting the discharge/admit diagnosis, lab results, radiology results, the need for further work-up and treatment in the hospital. Response to treatment: the patient's symptoms have mildly improved after treatment. 02/24 14:40 Order name: Basic Metabolic Panel; Complete Time: 15:39 cp 02/24 15:50 Interpretation: Normal except: NA 134; K 3.2; GLUC 280; BUN 40; CRE 3.19; GFR 20. cp 02/24 14:40 Order name: CBC with Diff; Complete Time: 17:08 cp 02/24 14:40 Order name: LFT's; Complete Time: 15:39 cp 02/24 14:40 Order name: Magnesium; Complete Time: 15:39 cp 02/24 14:40 Order name: PT-INR; Complete Time: 15:39 cp 02/24 14:40 Order name: Troponin (emerg Dept Use Only); Complete Time: 15:39 cp 02/24 14:40 Order name: XRAY Chest (1 view); Complete Time: 15:39 cp 02/24 14:40 Order name: Lipase; Complete Time: 15:39 cp 02/24 14:49 Order name: Glucose, Ancillary Testing; Complete Time: 15:39 EDMS 02/24 15:27 Order name: COVID-19 cp 02/24 15:58 Order name: UDS; Complete Time: 17:08 cp 02/24 16:27 Order name: Urine Dipstick--Ancillary (enter results); Complete Time: 17:08 eb 02/24 17:06 Order name: CBC Smear Scan; Complete Time: 17:08 EDMS 02/24 18:46 Order name: SARS-COV-2 RT PCR; Complete Time: 00:24 EDMS 02/24 14:40 Order name: EKG; Complete Time: 14:41 cp 02/24 14:40 Order name: Cardiac monitoring; Complete Time: 14:59 cp 02/24 14:40 Order name: EKG - Nurse/Tech; Complete Time: 15:04 cp 02/24 14:40 Order name: IV Saline Lock; Complete Time: 15:04 cp 02/24 14:40 Order name: Labs collected and sent; Complete Time: 15:09 cp 02/24 14:40 Order name: O2 Per Protocol; Complete Time: 14:46 cp 02/24 14:40 Order name: O2 Sat Monitoring; Complete Time: 14:46 cp 02/24 15:58 Order name: Urine Dipstick-Ancillary (obtain specimen); Complete Time: 16:18 cp EC:04 Rate is 94 beats/min. Rhythm is regular. MS interval is normal. QRS interval is normal. cp QT interval is prolonged. T waves are Inverted in lead aVR. Interpreted by me. Reviewed by me. Administered Medications: 14:43 CANCELLED (Physician Discretion): Insulin Regular Human 10 units IVP once cp 15:05 Drug: NS 0.9% 1000 ml Route: IV; Rate: 1 bolus; Site: left antecubital; tw2 15:51 Follow up: Response: No adverse reaction; IV Status: Completed infusion; IV Intake: tw2 1000ml 15:05 Drug: Zofran (Ondansetron) 4 mg Route: IVP; Site: left antecubital; tw2 15:52 Follow up: Response: No adverse reaction; Nausea is decreased tw2 15:07 Drug: Pepcid 20 mg Route: IVP; Site: left antecubital; tw2 15:52 Follow up: Response: No adverse reaction tw2 15:51 Drug: Aspirin Chewable Tablet 324 mg Route: PO; tw2 15:52 Follow up: Response: No adverse reaction tw2 15:51 Drug: NS 0.9% 1000 ml Route: IV; Rate: 1 bolus; Site: left antecubital; tw2 17:44 Follow up: Response: No adverse reaction; IV Status: Completed infusion; IV Intake: tw2 1000ml 16:09 Drug: Potassium Chloride 20 mEq Route: IV; Rate: calculated rate; Site: left tw2 antecubital; 18:55 Follow up: Response: No adverse reaction; IV Status: Completed infusion; IV Intake: tw2 100ml 17:15 Drug: hydrALAZINE 10 mg Route: IV; Rate: calculated rate; Site: left antecubital; tw2 17:16 Follow up: IV Status: Completed infusion; IV Intake: 0.5ml ; Potassium paused and tw2 flushed prior to and after administration 17:44 Follow up: Response: No adverse reaction; Blood pressure is lowered tw2 18:15 Drug: NS 0.9% 1000 ml Route: IV; Rate: 125 ml/hr; Site: left antecubital; tw2 Disposition: 02/25/20 16:03 Hospitalization ordered by Artemio Mcintosh for Inpatient Admission. Preliminary diagnosis are Acute kidney failure, Nausea and vomiting, Elevated Troponin. - Bed requested for Telemetry/MedSurg (Inpatient). - Status is Inpatient Admission. jb4 - Condition is Stable. - Problem is new. - Symptoms have improved. Addendum: 02/27/2020 07:32 Co-signature as Attending Physician, Fidencio Vazquez MD. r n Signatures: Dispatcher [employer] Shanel Prado RN RN dw Nieto, Roman, MD MD rn Roszak, Josh, PA PA [id number] Ivan Peralta PA PA cp Wise, Tara, RN RN tw2 Froylan Sinha RN RN jb4 Corrections: (The following items were deleted from the chart) 02/24 14:43 14:40 Insulin Regular Human 10 units IVP once ordered. cp cp : 16:03 Hospitalization Ordered by Artemio Mcintosh for Inpatient Admission. Preliminary dw diagnosis is Acute kidney failure; Nausea and vomiting; Elevated Troponin. Bed requested for Telemetry/MedSurg (Inpatient). Status is Inpatient Admission. Condition is Stable. Problem is new. Symptoms have improved. cp 20:13 19:26 02/25/2020 16:03 Hospitalization Ordered by Artemio Mcintosh for Inpatient jb4 Admission. Preliminary diagnosis is Acute kidney failure; Nausea and vomiting; Elevated Troponin. Bed requested for Telemetry/MedSurg (Inpatient). Status is Inpatient Admission. Condition is Stable. Problem is new. Symptoms have improved. dw 02/25 15:55 02/24 14:40 The patient or guardian reports hyperglycemia, that was potentially cp precipitated by no particular event, cp
--- NOTE | 2020-02-25 16:04 | ER ---
Nurse's Notes [facility] Name: Milton Morris Age: 54 yrs Sex: Male : 1965 Arrival Date: 02/25/2020 Time: 14:34 Bed 18 Private MD: Diagnosis: Acute kidney failure;Nausea and vomiting;Elevated Troponin Presentation: 02/24 14:37 Chief complaint: EMS states: pt is complaining of uncontrolled blood sugar because his tw2 has been non compliant with his insulin because of an insurance problem, we got a BGL of 498, we gave about 400ml NS, 20 g LEFT FA, pt did have a heart attack 1 month ago and had 2 stents and is on clopidogrel and propanalol, but not sure how compliant on those. Coronavirus screen: At this time, the client does not indicate any symptoms associated with coronavirus-19. Ebola Screen: Patient denies travel to an Ebola-affected area in the 21 days before illness onset. Initial Sepsis Screen: Does the patient meet any 2 criteria? No. Patient's initial sepsis screen is negative. Does the patient have a suspected source of infection? No. Patient's initial sepsis screen is negative. Risk Assessment: Do you want to hurt yourself or someone else? Patient reports no desire to harm self or others. Onset of symptoms was February 25, 2020. 14:37 Method Of Arrival: EMS: [facility] tw2 14:37 Acuity: DLEANEY 3 tw2 Triage Assessment: 14:40 General: Appears in no apparent distress. Behavior is calm, cooperative, appropriate tw2 for age. Pain: Denies pain. EENT: eye patch over RIGHT eye. Historical: - Allergies: 15:20 No Known Allergies; tw2 - Home Meds: 15:20 clopidogrel 75 mg oral tab 1 tab once daily [Active]; Propranolol Oral [Active]; tw2 rosuvastatin oral oral [Active]; Levemir subcutaneous subcutaneous [Active]; Novolog Sub-Q [Active]; - PMHx: 15:20 Diabetes - IDDM; Hyperlipidemia; Heart attack; tw2 - PSHx: 15:20 Cardiac stents x2; tw2 - Immunization history:: Adult Immunizations. - Social history:: Smoking status: . Screenin:40 Abuse screen: Denies threats or abuse. Nutritional screening: No deficits noted. tw2 Tuberculosis screening: No symptoms or risk factors identified. Fall Risk Secondary diagnosis (15 points) impaired mobility, d/t RIGHT eye patch. Assessment: 14:43 General: Appears in no apparent distress. well groomed, Behavior is calm, cooperative, tw2 appropriate for age. Pain: Denies pain. Neuro: Level of Consciousness is awake, alert, obeys commands, Oriented to person, place, time, situation. Cardiovascular: Heart tones S1 S2 Patient's skin is warm and dry. Respiratory: Airway is patent Respiratory effort is even, unlabored, Respiratory pattern is regular, symmetrical, Breath sounds are clear bilaterally. GI: Abdomen is flat, Bowel sounds present X 4 quads. Reports nausea. : No signs and/or symptoms were reported regarding the genitourinary system. EENT: eye patch to RIGHT eye. Derm: No signs and/or symptoms reported regarding the dermatologic system. Musculoskeletal: Range of motion: intact in all extremities. 15:17 Reassessment: Patient appears in no apparent distress at this time. No changes from tw2 previously documented assessment. Patient and/or family updated on plan of care and expected duration. Pain level reassessed. Patient is alert, oriented x 3, equal unlabored respirations, skin warm/dry/pink. 16:30 Reassessment: Patient appears in no apparent distress at this time. No changes from tw2 previously documented assessment. Patient and/or family updated on plan of care and expected duration. Pain level reassessed. Patient is alert, oriented x 3, equal unlabored respirations, skin warm/dry/pink. 17:42 Reassessment: Patient appears in no apparent distress at this time. No changes from tw2 previously documented assessment. Patient and/or family updated on plan of care and expected duration. Pain level reassessed. Patient is alert, oriented x 3, equal unlabored respirations, skin warm/dry/pink. 18:45 Reassessment: Patient appears in no apparent distress at this time. No changes from tw2 previously documented assessment. Patient and/or family updated on plan of care and expected duration. Pain level reassessed. Patient is alert, oriented x 3, equal unlabored respirations, skin warm/dry/pink. 19:00 Reassessment: Patient appears in no apparent distress at this time. Patient and/or jb4 family updated on plan of care and expected duration. Pain level reassessed. Patient is alert, oriented x 3, equal unlabored respirations, skin warm/dry/pink. 19:45 Reassessment: Patient appears in no apparent distress at this time. Patient and/or jb4 family updated on plan of care and expected duration. Pain level reassessed. Patient is alert, oriented x 3, equal unlabored respirations, skin warm/dry/pink. urinal emptied. 20:13 Reassessment: Patient appears in no apparent distress at this time. Patient and/or jb4 family updated on plan of care and expected duration. Pain level reassessed. Patient is alert, oriented x 3, equal unlabored respirations, skin warm/dry/pink. Vital Signs: 14:37 BP 169 / 86; Pulse 90; Resp 17; Temp 97.8(TE); Pulse Ox 99% on R/A; Weight 81.65 kg tw2 (R); Height 5 ft. 8 in. (172.72 cm) (R); Pain 0/10; 15:17 BP 135 / 79; Pulse 89; Resp 22; Pulse Ox 100% on R/A; tw2 16:15 BP 174 / 92; Pulse 91; Resp 19; Pulse Ox 100% on R/A; tw2 17:10 BP 197 / 102 RA; Pulse 91; Resp 18; tw2 17:11 BP 202 / 105; Pulse 92; Resp 17; Pulse Ox 100% on R/A; tw2 17:42 BP 178 / 97; Pulse 93; Resp 13; Pulse Ox 100% on R/A; tw2 18:45 BP 149 / 91; Pulse 93; Resp 18; Pulse Ox 100% on R/A; tw2 19:45 BP 170 / 88; Pulse 98; Resp 20; Pulse Ox 99% on R/A; jb4 14:37 Body Mass Index 27.37 (81.65 kg, 172.72 cm) tw2 17:11 provider notified of last b/l BP elevation tw2 ED Course: 14:34 Patient arrived in ED. tw2 14:34 Bed in low position. Call light in reach. gastroenterology teacher on. Pulse ox on. NIBP on. tw2 14:35 Fidencio Vazquez MD is Attending Physician. rn 14:36 Ivan Peralta PA is PHCP. cp 14:40 Triage completed. tw2 14:40 Arm band placed on. tw2 14:41 Loreta Owen, RN is Primary Nurse. tw2 14:50 EKG done, by ED staff, reviewed by Ivan MEEKS. jp3 14:54 XRAY Chest (1 view) In Process Unspecified. EDMS 15:10 Maintain EMS IV. Dressing intact. Good blood return noted. Site clean \T\ dry. Gauge \T\ tw 2 site: 20 G LEFT AC. 16:02 Artemio Mcintosh is Hospitalizing Provider. cp 16:18 UDS Sent. tw2 19:00 Report given to WINSOME Gan. tw2 19:12 Primary Nurse role handed off by Loreta Owen RN eb 19:32 Froylan Sinha, RN is Primary Nurse. jb4 19:49 No provider procedures requiring assistance completed. Patient admitted, IV remains in jb4 place. 19:49 IV is patent, is intact, with fluids infusing freely. jb4 Administered Medications: 14:43 CANCELLED (Physician Discretion): Insulin Regular Human 10 units IVP once cp 15:05 Drug: NS 0.9% 1000 ml Route: IV; Rate: 1 bolus; Site: left antecubital; tw2 15:51 Follow up: Response: No adverse reaction; IV Status: Completed infusion; IV Intake: tw2 1000ml 15:05 Drug: Zofran (Ondansetron) 4 mg Route: IVP; Site: left antecubital; tw2 15:52 Follow up: Response: No adverse reaction; Nausea is decreased tw2 15:07 Drug: Pepcid 20 mg Route: IVP; Site: left antecubital; tw2 15:52 Follow up: Response: No adverse reaction tw2 15:51 Drug: Aspirin Chewable Tablet 324 mg Route: PO; tw2 15:52 Follow up: Response: No adverse reaction tw2 15:51 Drug: NS 0.9% 1000 ml Route: IV; Rate: 1 bolus; Site: left antecubital; tw2 17:44 Follow up: Response: No adverse reaction; IV Status: Completed infusion; IV Intake: tw2 1000ml 16:09 Drug: Potassium Chloride 20 mEq Route: IV; Rate: calculated rate; Site: left tw2 antecubital; 18:55 Follow up: Response: No adverse reaction; IV Status: Completed infusion; IV Intake: tw2 100ml 17:15 Drug: hydrALAZINE 10 mg Route: IV; Rate: calculated rate; Site: left antecubital; tw2 17:16 Follow up: IV Status: Completed infusion; IV Intake: 0.5ml ; Potassium paused and tw2 flushed prior to and after administration 17:44 Follow up: Response: No adverse reaction; Blood pressure is lowered tw2 18:15 Drug: NS 0.9% 1000 ml Route: IV; Rate: 125 ml/hr; Site: left antecubital; tw2 Intake: 15:51 IV: 1000ml; Total: 1000ml. tw2 17:16 IV: 1ml; Total: 1001ml. tw2 17:44 IV: 1000ml; Total: 2001ml. tw2 18:55 IV: 100ml; Total: 2101ml. tw2 Output: 16:18 Urine: 300ml (Voided); Total: 300ml. tw2 Outcome: 16:03 Decision to Hospitalize by Provider. cp 19:49 Admitted to Med/surg accompanied by tech, via wheelchair, with chart, Report called to calvin Mckenna RN 19:49 Condition: stable 19:49 Discharge instructions given to patient, Instructed on the need for admit, Demonstrated understanding of instructions. 20:13 Patient left the ED. calvin Signatures: Dispatcher [employer] EDMS Fidencio Vazquez MD MD rn Page, Corey, PA PA cp Wise, Tara, RN RN 2 Froylan Sinha RN RN Anju Franklin Jacob jp3
[2020-02-25] MEDS ORDERED: KCL 20 MEQ/100 mL IVPB 20 MEQ/100 ML BAG IV ONE (16:19)
[2020-02-25 16:37] LABS: Barbiturates NEGATIVE (NEGATIVE); Benzodiazepines NEGATIVE (NEGATIVE); Cocaine NEGATIVE (NEGATIVE); METHAMPHETAM NEGATIVE (NEGATIVE); Methadone NEGATIVE (NEGATIVE); Opiates NEGATIVE (NEGATIVE); Phencyclidine NEGATIVE (NEGATIVE); THC Cannibis NEGATIVE (NEGATIVE)
[2020-02-25 16:39] LABS: Urine Blood 1+ (NEG); Urine Glucose 2+ (NEG); Urine Protein 3+ (NEG); Urine Specific Gravity 1.015 (1.005-1.030); Urine pH 5.5 (5.0-7.0)
--- NOTE | 2020-02-25 16:46 | P.HP ---
Certification for Inpatient Patient admitted to: Observation With expected LOS: <2 Midnights Practitioner: I am a practitioner with admitting privileges, knowledge of patient current condition, hospital course, and medical plan of care. Services: Services provided to patient in accordance with Admission requirements found in Title 42 Section 412.3 of the Code of Federal Regulations Patient History Date of Service: 02/25/20 Reason for admission: Nausea and vomiting History of Present Illness: 54-year-old gentleman with a history of diabetes mellitus type 2 on insulin therapy, hypertension presented emergency department with a complaint of nausea and vomiting which started this morning. Patient has not been able to hold any food in today. He relates his nausea and vomiting to high blood sugar levels. He stated his glucometer was reading high this morning. He has had similar episodes with high blood sugar before. Stated his Lantus insulin was changed to Levemir and he feels the Levemir does not work as much as the Lantus does for him. Noted his troponin was mildly elevated in the ED. Patient denies any chest pain. He mentioned his troponin level is most times elevated and his psychologist engineering has attributed that to his impaired renal function. He may she had a stress test and cardiac catheterization about 6 months ago which he believes were normal. His EKG demonstrated sinus rhythm with nonspecific ST-T changes. His creatinine is elevated to 3.19. Patient states he has been diagnosed with chronic kidney disease stage 4. Given the elevated troponin and renal insufficiency as well as inability to tolerate p.o., patient is hospitalized for further management. - Past Medical/Surgical History -: DM type 2 -: CKD stage 4 -: Hypertension - Family History Brother -: Diabetes Sister -: Diabetes - Social History Smoking Status: Never smoker Alcohol use: Yes CD- Drugs: No Place of Residence: Home Review of Systems Other: Patient denies any fever or cough or chest pain or shortness of breath. Except as documented, all other systems reviewed and negative. Physical Examination - Physical Exam General: Alert, In no apparent distress, Oriented x3 HEENT: Atraumatic, Normocephalic, PERRLA, Mucous membr. moist/pink, Sclerae nonicteric Neck: Supple, JVD not distended Respiratory: Clear to auscultation bilaterally, Normal air movement Cardiovascular: No edema, Regular rate/rhythm, Normal S1 S2 Capillary refill: <2 Seconds Gastrointestinal: Normal bowel sounds, Soft and benign, Non-distended, No tenderness Musculoskeletal: No swelling, No tenderness Integumentary: No rashes, No erythema Neurological: Normal speech, Normal strength at 5/5 x4 extr - Studies Laboratory Data (last 24 hrs) 02/25/20 15:00: PT 12.3, INR 1.04 02/25/20 15:00: WBC 8.1, Hgb 13.1 L, Hct 40.1, Plt Count 309 02/25/20 15:00: Sodium 134 L, Potassium 3.2 L, BUN 40 H, Creatinine 3.19 H, Glucose 280 H, Magnesium 2.0, Total Bilirubin 0.4, AST 15, ALT 19, Alkaline Phosphatase 188 H, Lipase 171 Assessment and Plan - Problems (Diagnosis) (1) Nausea & vomiting Current Visit: Yes Status: Acute (2) Diabetes mellitus with hyperglycemia Current Visit: Yes Status: Acute (3) Elevated troponin Current Visit: Yes Status: Acute (4) Chronic kidney disease, stage 4 (severe) Current Visit: Yes Status: Acute (5) Uncontrolled hypertension Current Visit: Yes Status: Acute - Plan Place under observation. Hydrate with IV normal saline. Elevated troponin likely secondary to decreased renal clearance. Trend troponin Use insulin sliding scale for glucose management. Continue home antihypertensives. Hydralazine p.r.n. for BP spikes Obtain a UA to rule out UTI. - Advance Directives Does patient have a Living Will: No Does patient have a Durable POA for Healthcare: No
[2020-02-25 17:06] LABS: Anisocytosis 1+; Blood Morphology Comment NOTED (NOT SEEN); Platelet Estimate ADEQ; White Blood Cell Scan OK (OK)
[2020-02-25] MEDS ORDERED: HYDRALAZINE HCL 20 MG/ML VIAL ONE (17:22)
[2020-02-25 20:35] VITALS: BMI 25.9
[2020-02-25] MEDS ORDERED: ONDANSETRON 4 MG/2 ML VIAL IV PRN (21:06)
[2020-02-25] MEDS: INSULIN -REGULAR HUMAN 50 UNIT/0.5 ML ML SQ SCH (21:06)
[2020-02-25] MEDS ORDERED: HEPARIN 5000 UNIT/ML 1 ML VIAL SQ SCH (21:06)
[2020-02-25] MEDS ORDERED: ACETAMINOPHEN 500 MG TAB PO PRN (21:06)
[2020-02-25] MEDS: NA CHLORIDE 0.9% 1,000 ML IV SCH (21:43)
[2020-02-26] MEDS ORDERED: LORazepam 2 MG/ML VIAL IV ONE (00:27)
[2020-02-26] MEDS ORDERED: HYDRALAZINE HCL 20 MG/ML VIAL IV PRN (00:28)
[2020-02-26 01:16] VITALS: TEMP 97.6
[2020-02-26] MEDS ORDERED: NA CHLORIDE 0.9% 500 ML IV ONE (04:59)
[2020-02-26] MEDS ORDERED: HEPARIN 5000 UNIT/ML 1 ML VIAL SQ SCH (06:00)
[2020-02-26 06:17] LABS: Absolute Lymphocytes (CBC) 1.3 K/uL (0.7-4.9); Basophils % 0.8 % (0-1.3); Hematocrit 35.4 % (39.6-49.0); Lymphocytes % 17.6 % (15.3-44.8); MPV 9.1 fL (7.6-11.3); RBC Red Blood Cell Count 5.14 M/uL (4.33-5.43)
[2020-02-26] MEDS: NA CHLORIDE 0.9% 1,000 ML IV SCH (06:20)
[2020-02-26 06:35] LABS: Albumin 2.8 g/dL (3.4-5.0); Bilirubin Total 0.3 mg/dL (0.2-1.0); Magnesium 1.7 mg/dL (1.8-2.4); Potassium 3.5 mmol/L (3.5-5.1); Protein, Total 6.7 g/dL (6.4-8.2); Thyroid Stimulating Hormone 1.92 uIU/mL (0.360-3.740)
[2020-02-26 07:31] VITALS: O2SAT 99
[2020-02-26] MEDS ORDERED: MAGNESIUM SULFATE 1 gm IVPB 1 GM/100 ML BAG IV ONE (08:11)
[2020-02-26] MEDS ORDERED: POTASSIUM CL SA 10 MEQ TAB PO ONE (08:12)
[2020-02-26 08:17] VITALS: BP 178/99
[2020-02-26] MEDS: INSULIN -REGULAR HUMAN 50 UNIT/0.5 ML ML SQ SCH (09:50)
--- NOTE | 2020-02-26 10:01 | P.DS ---
Admission Date: 02/25/20 Discharge Date: 02/26/20 Disposition: ROUTINE DISCHARGE Discharge Condition: FAIR Reason for Admission: Nausea and vomiting - Problems (1) Nausea & vomiting Current Visit: Yes Status: Acute (2) Diabetes mellitus with hyperglycemia Current Visit: Yes Status: Acute (3) Elevated troponin Current Visit: Yes Status: Acute (4) Chronic kidney disease, stage 4 (severe) Current Visit: Yes Status: Acute (5) Uncontrolled hypertension Current Visit: Yes Status: Acute Brief History of Present Illness: 54-year-old gentleman with a history of diabetes mellitus type 2 on insulin therapy, hypertension presented emergency department with a complaint of nausea and vomiting which started this morning. Patient has not been able to hold any food in today. He relates his nausea and vomiting to high blood sugar levels. He stated his glucometer was reading high this morning. He has had similar episodes with high blood sugar before. Stated his Lantus insulin was changed to Levemir and he feels the Levemir does not work as much as the Lantus does for him. Noted his troponin was mildly elevated in the ED. Patient denies any chest pain. He mentioned his troponin level is most times elevated and his learning development specialist has attributed that to his impaired renal function. He may she had a stress test and cardiac catheterization about 6 months ago which he believes were normal. His EKG demonstrated sinus rhythm with nonspecific ST-T changes. His creatinine is elevated to 3.19. Patient states he has been diagnosed with chronic kidney disease stage 4. Given the elevated troponin and renal insufficiency as well as inability to tolerate p.o., patient is hospitalized for further management. Hospital Course: Patient placed under observation. His troponin trended flat. His symptoms also resolved. He was able to tolerate diet without any nausea vomiting. His blood sugar was controlled on insulin sliding. Patient is concerned his Levemir insulin is not controlling his blood sugar. Will prescribe a trial of Toujeo. Elevated troponin likely secondary to reduce clearance from the kidney. Noted his serum creatinine also improved with IV hydration. He is currently asymptomatic. Patient is deemed clinically stable for discharge. Vital Signs/Physical Exam: Temp Pulse Resp BP Pulse Ox 97.6 F 100 H 16 178/99 H 99 02/26/20 08:00 02/26/20 08:00 02/26/20 08:00 02/26/20 08:00 02/26/20 08:00 General: Alert, In no apparent distress HEENT: Mucous membr. moist/pink Neck: JVD not distended Respiratory: Clear to auscultation bilaterally, Normal air movement Cardiovascular: No edema, Regular rate/rhythm, Normal S1 S2 Gastrointestinal: Normal bowel sounds, Soft and benign, No tenderness Musculoskeletal: No swelling, No erythema Integumentary: No rashes Neurological: Other (Nonfocal.) Laboratory Data at Discharge: WBC 7.3 K/uL (4.3-10.9) 02/26/20 05:49 Hgb 11.7 g/dL (13.6-17.9) L 02/26/20 05:49 Hct 35.4 % (39.6-49.0) L 02/26/20 05:49 Plt Count 249 K/uL (152-406) 02/26/20 05:49 PT 12.3 SECONDS (9.5-12.5) 02/25/20 15:00 INR 1.04 02/25/20 15:00 Sodium 140 mmol/L (136-145) 02/26/20 05:49 Potassium 3.5 mmol/L (3.5-5.1) 02/26/20 05:49 BUN 32 mg/dL (7-18) H 02/26/20 05:49 Creatinine 2.62 mg/dL (0.55-1.3) H 02/26/20 05:49 Glucose 157 mg/dL (74-106) H 02/26/20 05:49 Phosphorus 4.0 mg/dL (2.5-4.9) 02/26/20 05:49 Magnesium 1.7 mg/dL (1.8-2.4) L 02/26/20 05:49 Total Bilirubin 0.3 mg/dL (0.2-1.0) 02/26/20 05:49 AST 19 U/L (15-37) 02/26/20 05:49 ALT 17 U/L (12-78) 02/26/20 05:49 Alkaline Phosphatase 146 U/L (45-117) H 02/26/20 05:49 Troponin I 0.20 ng/mL (0.0-0.045) H 02/26/20 01:13 Triglycerides 283 mg/dL (<150) H 02/26/20 05:49 Cholesterol 197 mg/dL (<200) 02/26/20 05:49 HDL Cholesterol 37 mg/dL (40-60) L 02/26/20 05:49 Cholesterol/HDL Ratio 5.32 02/26/20 05:49 Lipase 171 U/L (73-393) 02/25/20 15:00 Home Medications: Insulin Glargine,Hum.rec.anlog [Toujeo Solostar] 50 unit SQ DAILY #1 insuln.pen 02/26/20 New Medications: Insulin Glargine,Hum.rec.anlog [Toujeo Solostar] 50 unit SQ DAILY #1 insuln.pen Diet: ADA Activity: Ad kirit Followup: Unknown,U [Primary Care Provider] - 1-2 Weeks
--- NOTE | 2020-02-27 09:32 | CON ---
Date of Consultation: 02/25/2020 History Of Present Illness: Elevated troponin. History Of Present Illness: Mr. Morris is a 54-year-old male. He has a history of severe diabetes, hypertension, coronary artery disease status post multiple stents. He sees Dr. Roper, had a vaishali terization about 4 to [address] Roper told that his stents were open. He has had a histor y of right carotid endarterectomy. He was really mostly dehydrated. Had not had any fever or chills , but he did have nausea and vomiting. No diarrhea, went to urgent care and had a syncopal episode, then was transferred here. Never really had any chest pain. Denied any PND, orthopnea, pedal edema, or palpitation. He was found to have an elevated troponin. I was consulted. Allergies: NONE. Review of Systems: Negative. Social History: Negative. Family History: Negative. Past Medical History: As stated earlier. Medications: At home include propanolol, clopidogrel, rosuvastatin, and insulin. Physical Examination: Which was done by Dr. Mcintosh and the emergency room physician did not reveal any abnormalities. His vital signs were stable. He was afebrile. He was in sinus rhythm. Diagnostic Data: His creatinine was 2.6. Hemoglobin was 11.7. Glucose was 292. Initially, his tro ponin was 0.20. His triglycerides 283. EKG and x-ray were unremarkable. Impression And Plan: I think his syncope was secondary to dehydration from nausea and vomiting. He did not have any chest pain. I think his troponin elevation is secondary to chronic coronary artery disease and renal insufficiency. He just has recently a heart catheterization by Dr. Roper and I d o not need to repeat that. His last catheterization showed patent stents. I think Mr. Morris need to be continued on his home medication, except that I think he needs to have more aggressive hyperten mahi and diabetes treatment. His renal insufficiency is significant and we have to be careful with a ntihypertensive to put him on. I certainly would like to avoid any IV contrast at all cost unless we have to. I am comfortable with him going home whenever it is okay with Dr. Mcintosh. He should follo w up with Dr. Roper in the near future. He should definitely be on his statin and he needs to incr ease his statin that he takes. Continue with beta-mac and Plavix, but may need more aggressive h ypertensive control. The case was discussed with Dr. Mcintosh. ADRIENNE/COOKIE Voice ID: [id number] Report ID: [id number]
== END 2020-02-26 10:53 | disposition home or self-care (01) ==
LOC: ER 14:31 → ERHOLD 16:57 → 2ND 19:51
PROVIDERS: ADMIT Internal Medicine; ATTEND Internal Medicine
DX: R11.2 Nausea with vomiting, unspecified (principal); E11.65 Type 2 diabetes mellitus with hyperglycemia; Z79.4 Long term (current) use of insulin; R74.8 Abnormal levels of other serum enzymes; I12.9 Hypertensive chronic kidney disease with stage 1 through stage 4 chronic kidney disease, or unspecified chronic kidney disease; N18.4 Chronic kidney disease, stage 4 (severe); Z20.828 Contact with and (suspected) exposure to other viral communicable diseases; R94.31 Abnormal electrocardiogram [ECG] [EKG]; I25.10 Atherosclerotic heart disease of native coronary artery without angina pectoris; Z95.5 Presence of coronary angioplasty implant and graft; E86.0 Dehydration; R55 Syncope and collapse; I25.2 Old myocardial infarction; E78.5 Hyperlipidemia, unspecified
CPT/HCPCS: 36415; 71045; 80048; 80053; 80061; 80076; 80307; 81003; 82947; 83690; 83735; 84100; 84443; 84484; 85025; 85610; 93005; 96361; 96365; 96366; 96375; 99285; G0378; J0360; J1644; J2405; J3475; J3480; J7030; U0003